=== PATIENT | male | born 1960 | race Caucasian/White ===

== ENCOUNTER 2019-07-24 18:58 | Inpatient (IN) | payer SELFPAY ==
[2019-07-24] VITALS (21 sets, daily range): BP systolic 99–116; BP diastolic 60–85; PULSE 97–134; RESP 18–33; TEMP 38.2–39.6; O2SAT 57–100; BMI 23.3
--- NOTE | 2019-07-24 19:00 | XR_ITS ---
WS: [id number] XR chest 1V portable [id number] REASON FOR EXAM: cough/congestion FINDINGS: Groundglass opacities are seen in both lower lungs most likely alveolar infiltrates. And mo st likely represent pneumonia. There is hyper aerated lungs bilaterally. The heart is not enlarged. XR/XR chest 1V portable [id number] IMPRESSION: Chronic obstructive pulmonary disease with alveolar infiltrates most likely pne umonia bilaterally.
[2019-07-24 19:27] LABS: Basophils % 0.1 %; Hematocrit 50.9 % (42.0-52.0); Hemoglobin 16.5 g/dL (11.7-16.6); Lymphocytes # 0.4 10^3/uL (0.8-4.8); Lymphocytes % 4.6 %; Mean Corpuscular HGB Conc 32.4 g/dL (30.0-36.0); Mean Corpuscular Hemoglobin 30.2 pg (28.0-34.0); Mean Corpuscular Volume 93.2 fL (80-94); Mean Platelet Volume 10.9 fL (7.4-10.4); Monocytes # 0.3 10^3/uL (0.2-0.9); Neutrophils # 7.1 10^3/uL (1.8-7.7); Neutrophils % 89.1 %; Nucleated Red Blood Cells % 0 %; Platelet Count 227 10^3/cmm (130-400); Red Blood Count 5.46 10^6/uL (4.1-5.3); Red Cell Distribution Width 14.1 % (12.1-15.1)
--- NOTE | 2019-07-24 19:36 | ED_ITS ---
Entered by Jessica Concepcion, acting as scribe for HPI - SOB/Dyspnea General: Chief Complaint: Shortness of Breath/Dyspnea Stated Complaint: sob/flu symptoms Time Seen by Provider: 07/24/19 19:36 Source: patient, family and RN notes reviewed Mode of arrival: wheelchair Limitations: no limitations History of Present Illness: HPI Narrative: 59 yo male presents to ED with shortness of breath. The patient arrived with an oxygen level of 57% on room air. Per his son, the patient is normally active. The patient is full code. The son stated that yesterday the patient was able to get up and around and have conversation. He could tell the patient was sick. The son went to check on the patient today about 1700 and found him to be listless and had a high fever (103.2 at triage). The patient's hands are purplish in color. The patient states he has R hip pain. The patient was unable to talk because of severe shortness of breath and tachypnea. Most of the history is given by his son. The patient has been ill for about a week with cough, fever, shortness of breath. He went to see his primary care provider at [facility] and was given doxycycline and prednisone. The patient has been taking the medications and initially thought he was getting better. Today he became very weak, was really short of breath and his son brought him in to be evaluated. MD elicited complaint: shortness of breath Pertinent past history: other (none known) Onset (ago): day(s) (1) Context: recent illness Timing: constant and progressively worsening Severity: severe Exacerbating factors: lying flat, exertion, movement, coughing, inspiration and talking Relieving factors: oxygen, rest and upright position Known history of: other (none known) Associated symptoms: Reports fever(s) and orthopnea; Deny abdominal pain, nausea, polydipsia, polyuria or vomiting Treatment prior to arrival: none Review of Systems General: Reports: 10 or more systems reviewed and unremarkable except in HPI and below Const: Reports: fever; Denies: body aches Eyes: Denies: change in vision or blurry vision ENMT: Denies: throat pain, enlarged tonsils, painful swallowing, hoarseness, mouth pain or swelling of lips/tongue Card: Reports: shortness of breath when lying down Resp: Reports: shortness of breath and non-productive cough GI: Denies: abdominal pain, nausea or vomiting : Denies: flank pain, painful urination, urinary frequency, urinary urgency or urinary hesitancy Musc: Denies: neck pain, back pain or extremity swelling Skin/Breast: Denies: rash, itching or redness Neuro: Denies: headache, numbness in extremities or weakness in extremities Endo: Denies: excessive urination, excessive thirst or tired all the time PFSH ED PFSH: Medical History (Updated 07/24/19 @ 22:37 by Awilda Crisostomo MD, [facility] [place]) No pertinent past medical history Surgical History (Updated 07/24/19 @ 22:02 by Gabi Long MD) No pertinent past surgical history Family History (Updated 07/24/19 @ 22:02 by Gabi Long MD) Other Hypertension Denies family history of Lung disease Social History (Updated 07/24/19 @ 22:02 by Gabi Long MD) Smoking and tobacco status: current every day smoker cigarettes Years cigarettes smoked: 40 Number of cigarettes per day: 1-5 Alcohol intake: never Substance/Drug Use: never Lives independently: Yes Housing: House Marital status: / Physical Exam Const: COMMON NORMALS: average body habitus, oriented x3, no limitations, alert and well nourished HENMT: COMMON NORMALS: normocephalic, head/scalp atraumatic and moist oral mucous membranes HEAD & SCALP: normocephalic and atraumatic Eye: COMMON NORMALS: PERRL, EOMs intact bilaterally, conjunctivae normal and no scleral icterus CONJUNCTIVA: Yes conjunctivae normal PUPIL: Yes PERRL Neck/C-Spine: COMMON NORMALS: full ROM, supple, no meningeal signs, no JVD and no carotid bruits Chest: COMMONS NORMALS: inspection of chest normal and palpation of chest normal Resp: COMMON NORMALS: no retractions EFFORT & INSPECTION: No able to speak in complete sentences, Yes tachypneic, Yes respiratory distress, Yes labored and Yes uses accessory muscles AUSCULTATION: rales, wheezes and diminished lung sounds Cardio: COMMON NORMALS: no JVD, regular rhythm, S1 normal heart sound, S2 normal heart sound, no gallops, no clicks, no murmurs, no rub and peripheral pulses 2+ throughout RATE: tachycardic RHYTHM: regular rhythm HEART SOUNDS: S1 normal and S2 normal PERIPHERAL PULSES: pulses 2+ throughout GI: COMMON NORMALS: normal to inspection, nondistended, normoactive bowel sounds, soft to palpation, non-tender, no hepatosplenomegaly, no masses and no bruits PALPATION: Yes soft and Yes no hepatosplenomegaly : COMMON NORMALS: Yes no CVA tenderness BLADDER/KIDNEY EXAM: Yes no CVA tenderness Back/Pelvis: COMMON NORMALS: no CVA tenderness Extremity: COMMON NORMALS: normal to inspection, full ROM, normal capillary refill, no calf tenderness and no pedal edema Neuro: COMMON NORMALS: oriented x3 SENSORIUM/ORIENTATION: Yes alert MENINGEAL SIGNS: Yes no meningeal signs Skin: COMMON NORMALS: no rashes or lesions noted, no wounds, skin turgor normal, no jaundice and no petechiae GENERAL SKIN EXAM: no rashes or lesions noted, turgor normal and pallor OTHER: Peripheral cyanosis in both hands Course Consultations: Consultation #1: Dr. Long, hospitalist. He kindly accepted the patient to his service. Vital Signs: Vital signs: Vital Signs Temperature 100.7 F H 07/24/19 20:44 Pulse Rate 107 H 07/24/19 22:10 Respiratory Rate 26 H 07/24/19 22:10 Blood Pressure 116/72 07/24/19 22:10 Pulse Oximetry 96 07/24/19 22:10 MDM - SOB/Dyspnea MDM Narrative: Medical decision making narrative: 59-year-old gentleman with a long history of cigarette smoking who presented to the emergency department in acute respiratory failure. He has been ill for about a week with respiratory symptoms and has been on doxycycline and prednisone with minimal improvement. When he arrived to the emergency department he saturations on room air was in the high 50s. The patient was garcia, pale and had peripheral cyanosis. The patient improved when placed on a BiPAP. Evaluation showed significant hypoxemia, reduced CO2 and increased pH secondary to tachypnea. Chest x-ray showed bilateral pneumonia. Lactic acid was elevated at 4.7. He was therefore diagnosed with sepsis, acute respiratory failure, and pneumonia. He is admitted for further evaluation and management. Medical Records: Attestation: I reviewed the patient's medical records. Lab Data: Attestation: I reviewed the patient's lab results. Labs: Lab Results 07/24/19 07/24/19 07/24/19 Range/Units 19:15 19:15 19:15 WBC 8.0 (4.0-10.0) 10^3/ uL RBC 5.46 H (4.1-5.3) 10^6/u L Hgb 16.5 (11.7-16.6) g/dL Hct 50.9 (42.0-52.0) % MCV 93.2 (80-94) fL MCH 30.2 (28.0-34.0) pg MCHC 32.4 (30.0-36.0) g/dL RDW 14.1 (12.1-15.1) % Plt Count 227 (130-400) 10^3/c mm MPV 10.9 H (7.4-10.4) fL Neut % (Auto) 89.1 % Lymph % (Auto) 4.6 % [place] % (Auto) 4.0 % Eos % (Auto) 0.0 % Baso % (Auto) 0.1 % Neut # (Auto) 7.1 (1.8-7.7) 10^3/u L Lymph # (Auto) 0.4 L (0.8-4.8) 10^3/u L [place] # (Auto) 0.3 (0.2-0.9) 10^3/u L Eos # (Auto) 0.0 (0.0-0.8) 10^3/u L Baso # (Auto) 0.0 (0.0-0.1) 10^3/u L Nucleated RBC % (a uto) 0 % Nucleated RBCs # 0.0 /100WBC Specimen Type Sample Site ABG pH (7.35-7.45) ABG pCO2 (35-45) mmHg ABG pO2 (80.0-100.0) mmH g ABG HCO3 (22-26) mmol/L ABG Base Excess (-2.0-2.0) mmol/ L Albino Test Hematocrit (42-52) % O2 Delivery Device FiO2 % Account Developer ID Sodium 135 L (136-145) mmol/L Potassium 4.7 (3.5-5.1) mmol/L Chloride 97 L (98-107) mmol/L Carbon Dioxide 19 L (22-29) mmol/L Anion Gap 23.7 H (5-19) BUN 53 H (8-23) mg/dL Creatinine 1.5 H (0.7-1.2) mg/dL GFR Calculation 47.6 L (90-130) mL/min Glucose 155 H (65-115) mg/dL Lactic Acid 4.7 H* (0.5-2.2) mmol/L Calcium 8.9 (8.5-10.5) mg/dL Total Bilirubin 1.1 (0.15-1.2) mg/dL AST 267 H (0-40) U/L ALT 128 H (0-41) U/L Alkaline Phosphata se 117 (40-130) IU/L Total Protein 6.8 (6.6-8.7) g/dL Albumin 3.0 L (3.5-5.2) g/dL Globulin 3.8 (1.3-4.6) g/dL Influenza Type A A g (Negative) POC Influenza B Ag (Negative) 07/24/19 07/24/19 Range/Units 19:48 19:58 WBC (4.0-10.0) 10^3/ uL RBC (4.1-5.3) 10^6/u L Hgb (11.7-16.6) g/dL Hct (42.0-52.0) % MCV (80-94) fL MCH (28.0-34.0) pg MCHC (30.0-36.0) g/dL RDW (12.1-15.1) % Plt Count (130-400) 10^3/c mm MPV (7.4-10.4) fL Neut % (Auto) % Lymph % (Auto) % [place] % (Auto) % Eos % (Auto) % Baso % (Auto) % Neut # (Auto) (1.8-7.7) 10^3/u L Lymph # (Auto) (0.8-4.8) 10^3/u L [place] # (Auto) (0.2-0.9) 10^3/u L Eos # (Auto) (0.0-0.8) 10^3/u L Baso # (Auto) (0.0-0.1) 10^3/u L Nucleated RBC % (a uto) % Nucleated RBCs # /100WBC Specimen Type Arterial Sample Site Radial, left ABG pH 7.53 H (7.35-7.45) ABG pCO2 27.3 L (35-45) mmHg ABG pO2 42.7 L (80.0-100.0) mmH g ABG HCO3 23.0 (22-26) mmol/L ABG Base Excess 1.8 (-2.0-2.0) mmol/ L Albino Test Pos Hematocrit 49.9 (42-52) % O2 Delivery Device Nrb FiO2 100.0 % Account Developer ID [email or web address] Sodium (136-145) mmol/L Potassium (3.5-5.1) mmol/L Chloride (98-107) mmol/L Carbon Dioxide (22-29) mmol/L Anion Gap (5-19) BUN (8-23) mg/dL Creatinine (0.7-1.2) mg/dL GFR Calculation (90-130) mL/min Glucose (65-115) mg/dL Lactic Acid (0.5-2.2) mmol/L Calcium (8.5-10.5) mg/dL Total Bilirubin (0.15-1.2) mg/dL AST (0-40) U/L ALT (0-41) U/L Alkaline Phosphata se (40-130) IU/L Total Protein (6.6-8.7) g/dL Albumin (3.5-5.2) g/dL Globulin (1.3-4.6) g/dL Influenza Type A A g Negative (Negative) POC Influenza B Ag Negative (Negative) Discharge Plan Discharge Patient Disposition: Admitted As Inpatient Admit Provider: Gabi Long Clinical Impression: Acute respiratory failure, Bilateral pneumonia, Sepsis Condition: Stable Interventions: ED Discharge Assessment Last Done: 07/24/19 21:55 Discharge Date/Time: 07/24/19 22:16 Coding Level of Care Code ED Lead Carpenter for Chg Fwd Exam Comprehensive The documentation recorded by the Carlene bustos Valerie R, accurately reflects the service I personally performed and the decisions made by Kranthi knight Adegoke I, MD, [facility] [place] [facility] Jul 24, 2019 18:58
[2019-07-24 19:51] LABS: Alanine Aminotransferase 128 U/L (0-41); Alkaline Phosphatase 117 IU/L (40-130); Anion Gap 23.7 (5-19); Aspartate Amino Transferase 267 U/L (0-40); Blood Urea Nitrogen 53 mg/dL (8-23); Calcium 8.9 mg/dL (8.5-10.5); Carbon Dioxide 19 mmol/L (22-29); Chloride 97 mmol/L (98-107); Globulin 3.8 g/dL (1.3-4.6); Glomerular Filtration Rate 47.6 mL/min (90-130); Glucose 155 mg/dL (65-115); Potassium 4.7 mmol/L (3.5-5.1); Sodium 135 mmol/L (136-145); Total Bilirubin 1.1 mg/dL (0.15-1.2); Total Protein 6.8 g/dL (6.6-8.7)
[2019-07-24 19:57] LABS: ABG PCO2 27.3 mmHg (35-45); ABG PH Result 7.53 (7.35-7.45); Arterial Blood Gas Hematocrit 49.9 % (42-52); Base Excess ABG 1.8 mmol/L (-2.0-2.0); Blood Gas Allen Test Pos; Blood Gas Sample Site Radial, left; Blood Gas Sample Type Arterial; Oxygen Device NRB; PO2 ABG 42.7 mmHg (80.0-100.0)
[2019-07-24 20:12] LABS: Slide Review Slide Review Perform
[2019-07-24] MEDS: ipratropium-albuterol 3 mL Neb INHALATION ×2 (20:13→23:36)
[2019-07-24] MEDS: sodium chloride 0.9% 2,000 ML 999 ML IV (20:32)
--- NOTE | 2019-07-24 20:33 | PC.NURSE ---
PATIENTS SON STATES THAT PATIENT HAS BEEN SICK FOR THE LAST WEEK AND THAT WHEN HE CAME TO CHECK ON HIM AT 1700 TODAY THE PATIENT WAS HAVING TROUBLE BREATHING. PATIENT STATES THAT HIS RIGHT HIP IS HURTING AND THAT HE IS SHORT OF BREATH. PATIENT WAS MOVED FROM ROOM 2 TO TRAUMA ROOM 10.
[2019-07-24 20:42] LABS: Influenza A by IFA Negative (Negative); Influenza B by IFA Negative (Negative)
[2019-07-24 20:44] LABS: Lactic Sepsis W/Reflex 4.7 mmol/L (0.5-2.2)
--- NOTE | 2019-07-24 20:46 | PC.NURSE ---
CRITICAL VALUE - LACTIC 4.7
--- NOTE | 2019-07-24 21:07 | PM.HP ---
Providers/Chief Complaint Chief Complaint: sob/flu symptoms History of Present Illness José Patel is a 59 year old male who has not seen a primary care physician in a long time without significant past medical or surgical history came in with chief complaint of shortness of breath, cough and sputum production. Patient is stating that he lives independently, he was in his usual state of health until June he started feeling weaker and sicker. He was experiencing fever with chills, yellowish sputum production with coughing which has not increased in quantity of volume from his baseline, he smokes 3 to 4 cigarettes every day, his shortness of breath was getting worse. In 3 to 4 weeks it got worse to the point he felt extremely weak and not able to take care of himself, his last proper meal was on Thursday he is extremely dehydrated. 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 He has not traveled outside [place]. He denies any chest pain, orthopnea, PND, leg swelling, endorsing change in bowel habits with urgency. He is denying weight loss, night sweats. He went to see Dr. flores [facility] who prescribed doxycycline and prednisone after ruling out flu. He did not do well on this regimen and decided to come to emergency department today because of his worsening shortness of breath and weakness Diagnostics in ER showed hypoxia on room air he was 57% on room air, ABG was obtained on nonrebreather mask which showed hypoxia he was tachycardic, febrile, tachypneic, chest x-ray showed bilateral pneumonia, flu panel was negative lactic acid was high without leukocytosis He was given 1 dose of cefepime, on arrival temperature was 103.2, after Tylenol his temperature came down to 100.7, he got fluid with normal saline Review of Systems Const: Reports: fever, chills, body aches, change in appetite, fatigue and malaise; Denies: change in weight, night sweats, diaphoresis, change in sleep pattern or daytime sleepiness Eyes: Denies: change in vision ENMT: Denies: throat pain Card: Denies: chest pain or edema Resp: Reports: shortness of breath and productive cough GI: Denies: abdominal pain or nausea : Denies: flank pain or difficulty urinating Musc: Denies: neck pain or back pain Skin/Breast: Denies: rash Neuro: Denies: headache Psych: Denies: anxiety Endo: Denies: excessive urination Jaden/Lymph: Denies: easy bruising All/Imm: Denies: hives Medications/Allergies Allergies Allergy/AdvReac Type Severity Reaction Status Date / Time No Known Allergies Allergy Verified 07/24/19 19:52 PFSH Acute PFSH: Medical History (Updated 07/24/19 @ 22:05 by Gabi Long MD) No pertinent past medical history Surgical History (Updated 07/24/19 @ 22:02 by Gabi Long MD) No pertinent past surgical history Family History (Updated 07/24/19 @ 22:02 by Gabi Long MD) Other Hypertension Denies family history of Lung disease Social History (Updated 07/24/19 @ 22:02 by Gabi Logn MD) Smoking and tobacco status: current every day smoker cigarettes Years cigarettes smoked: 40 Number of cigarettes per day: 1-5 Alcohol intake: never Substance/Drug Use: never Lives independently: Yes Housing: House Marital status: / Vitals/I&O/Wt Last Vital Signs Temp 100.7 F H 07/24/19 20:44 Pulse 117 H 07/24/19 20:39 Resp 27 H 07/24/19 20:39 BP 114/60 07/24/19 20:39 Pulse Ox 95 07/24/19 20:39 Weight last 48 hrs Weight 65.771 kg Physical Exam Narrative: EXAM NARRATIVE: Thin frail middle-aged man Malnourished appearance Unkempt appearance looks dehydrated Dry skin Digital clubbing EOMI, PERRLA Dry lips with cracks Lung auscultation reveals bronchial breathing, adventitious sounds without active wheezing adequate breath sounds currently he is on BiPAP settings 16 and 8, able to give me all the details His digits have mild cyanotic tint no cyanosis of lips S1, S2 no signs of heart failure or JVD Nonfocal exam neurologically Abdomen soft nontender nondistended bowel sounds present Lower extremities without any edema No signs of ischemia gangrene or ulcer of skin Appropriate mood and affect Data : 07/24/19 19:15 07/24/19 19:15 Micro: Microbiology 07/24/19 20:28 Blood Culture - Preliminary Blood SPECIMEN COLLECTED 07/24/19 19:15 Blood Culture - Preliminary Blood SPECIMEN COLLECTED A&P Assessment and plan (1) Bilateral pneumonia: Status: Acute Code(s): J18.9 - Pneumonia, unspecified organism (2) Hypoxia: Status: Acute Code(s): R09.02 - Hypoxemia (3) Sepsis: Status: Acute Code(s): A41.9 - Sepsis, unspecified organism (4) Community acquired pneumonia: Status: Acute Code(s): J18.9 - Pneumonia, unspecified organism (5) Malnourished: Status: Acute Code(s): E46 - Unspecified protein-calorie malnutrition Additional A&P Information Sepsis secondary to community-acquired pneumonia Failed outpatient therapy with doxycycline Pneumonia severity index class III with a score of 86, will admit to the floor Sepsis criteria met with fever, tachycardia, tachypnea and lactic acidosis I will give him normal saline fluids, ceftriaxone and azithromycin Prednisone because of bilateral pneumonia BiPAP for now Urine antigens and blood culture ordered Sputum culture Flu panel negative however his symptoms are consistent with viral illness with bilateral infiltrates on x-ray with fever cough and sputum production I would not start him on Tamiflu because his symptoms started more than 4 weeks ago Acute hypoxic respiratory failure We will get CTA chest to rule out PE Currently hemodynamically stable Malnourished Patient is denying night sweats, weight loss We will follow-up with CT chest High anion gap metabolic acidosis due to lactic acidemia I believe this is a combination of sepsis and tissue hypoxia Follow-up with lactic acid level ARNAUD secondary to dehydration Anticipating improvement with fluid resuscitation DVT prophylaxis: Heparin Patient is full code He is high risk for intubation Son name is Kobe Patel [phone], updated, all questions were answered to their satisfaction, GI prophylaxis: Protonix Attestations Medical Necessity Statement*: Anticipating stay in the hospital to cross more than 2 midnights because of bilateral pneumonia and acute hypoxic respiratory failure Time Spent in Patient Care: 60 Coding Level of Care Code Acute Batch Or Continuous Still Operator for [facility] Fwd Diagnoses Bilateral pneumonia J18.9 Hypoxia R09.02 Sepsis A41.9 Community acquired pneumonia J18.9 Malnourished E46
[2019-07-24 21:18] LABS: Reflex Lactate Order REFLEX LACTIC ORDERD
[2019-07-24] MEDS: sodium chloride 0.9% 1,000 ML 999 ML IV (21:20)
[2019-07-24] MEDS: cefepime 1,000 MG in sodium chloride 0.9% (plus) 50 ML 100 MG IV (21:20)
--- NOTE | 2019-07-24 21:51 | CTR_ITS ---
PROCEDURE INFORMATION: Exam: CT Angiography Chest With Contrast Exam date and time: 07/24/2019 10:19 PM Age: 59 years old Clinical indication: Shortness of breath; Patient HX: Worsening difficulty breathing x 1 week; Additional info: Hypoxia TECHNIQUE: Imaging protocol: Computed tomographic angiography of the chest with intravenous contrast. 3D rendering: MIP and/or 3D reconstructed images were created by the technologist. Total DLP: 514.38 mGy-cm Radiation optimization: All CT scans at this facility use at least one of these dose optimization techniques: automated exposure control; mA and/or kV adjustment per patient size (includes targeted exams where dose is matched to clinical indication); or iterative reconstruction. Contrast material: VISI 320; Contrast volume: 95 ml; Contrast route: 16G; COMPARISON: CR XR chest 1V portable [id number] 07/24/2019 7:46 PM FINDINGS: Pulmonary arteries: Rapid tapering of the small pulmonary arteries. No central or segmental pulmonary embolus. No suggestion of a subsegmental embolus. Aorta: No aortic aneurysm or dissection. Thyroid: Small ring calcification in the left lower thyroid. Lungs: Very extensive centrilobular blebs and numerous paraseptal blebs in each lung with upper lobe predominance. Extensive airspace disease around the blebs in the posterior lungs with lower lobe predominance. Consolidation in each posterior inferior lower lobe. Calcified granuloma in the left lower lobe. Pleural space: Unremarkable. No pneumothorax. No pleural effusion. Heart: No cardiomegaly. Right ventricular diameter 4.7 cm and left ventricular diameter 4.1 cm. No pericardial effusion. Lymph nodes: Enlarged azygoesophageal recess node. Multiple other nonenlarged but slightly prominent mediastinal nodes. Bilateral hilar adenopathy. Bones/joints: Old compression fractures. Degeneration of several discs. Increased kyphosis. Subchondral defects in both humeral heads. Soft tissues: Unremarkable. CT/CT angio chest PE protcl [id number] IMPRESSION: 1. No apparent pulmonary embolus. 2. Prominent emphysema. Extensive lower lung disease most suggestive of edema although early bilateral lower lobe pneumonia not excluded. 3. Findings suggestive of pulmonary arterial hypertension. 4. Mediastinal and bilateral hilar adenopathy. 5. Small ring calcification in the left thyroid. Other findings detailed above. Radiation Dose CTDIVOL = (mGy): DLP = 514.38 (mGy-cm)
[2019-07-24] MEDS: iodixanol 320 mg/mL 100mL Btl IV (22:27)
[2019-07-24] MEDS: heparin 5,000 unit/mL INJ 1 mL 5000 UNIT SUBCUT (22:57)
[2019-07-24] MEDS: sodium chloride 0.9% 1,000 ML 75 ML IV (22:57)
[2019-07-24] MEDS: cefTRIAXone 1,000 MG in sodium chloride 0.9% (plus) 50 ML 100 MG IV (22:57)
[2019-07-24 23:53] LABS: Lactic Acid level (Lactate) 1.8 mmol/L (0.5-2.2)
[2019-07-25] VITALS (30 sets, daily range): BP systolic 96–180; BP diastolic 56–93; PULSE 62–106; RESP 14–32; TEMP 36.6–39.2; O2SAT 87–100
[2019-07-25] MEDS: ipratropium-albuterol 3 mL Neb INHALATION ×5 (03:57→20:09)
[2019-07-25 05:02] LABS: Hematocrit 40.5 % (42.0-52.0); Hemoglobin 13.3 g/dL (11.7-16.6); Lymphocytes # 0.5 10^3/uL (0.8-4.8); Lymphocytes % 7.2 %; Mean Corpuscular HGB Conc 32.8 g/dL (30.0-36.0); Mean Corpuscular Hemoglobin 31.1 pg (28.0-34.0); Mean Corpuscular Volume 94.6 fL (80-94); Mean Platelet Volume 10.6 fL (7.4-10.4); Monocytes # 0.1 10^3/uL (0.2-0.9); Neutrophils # 5.8 10^3/uL (1.8-7.7); Neutrophils % 87.8 %; Nucleated Red Blood Cells % 0 %; Platelet Count 191 10^3/cmm (130-400); Red Blood Count 4.28 10^6/uL (4.1-5.3); Red Cell Distribution Width 14.1 % (12.1-15.1); White Blood Count 6.6 10^3/uL (4.0-10.0)
[2019-07-25 05:19] LABS: Anion Gap 16.7 (5-19); Blood Urea Nitrogen 35 mg/dL (8-23); Calcium 7.5 mg/dL (8.5-10.5); Carbon Dioxide 20 mmol/L (22-29); Chloride 109 mmol/L (98-107); Glucose 160 mg/dL (65-115); Lactic Acid level (Lactate) 1.4 mmol/L (0.5-2.2); Osmolality Calculated 293 mOsm/kg (285-295); Potassium 4.7 mmol/L (3.5-5.1); Sodium 141 mmol/L (136-145)
[2019-07-25 05:37] LABS: ABG PCO2 30.8 mmHg (35-45); ABG PH Result 7.46 (7.35-7.45); Arterial Blood Gas Hematocrit 47.5 % (42-52); Base Excess ABG -0.8 mmol/L (-2.0-2.0); Blood Gas Allen Test Pos; Blood Gas Sample Type Arterial; PO2 ABG 59.1 mmHg (80.0-100.0)
[2019-07-25 05:38] LABS: Blood Gas Sample Site Radial, left; Oxygen Device BIPAP
[2019-07-25] MEDS: heparin 5,000 unit/mL INJ 1 mL 5000 UNIT SUBCUT ×3 (06:26→22:23)
[2019-07-25 06:31] LABS: Slide Review Slide Review Perform
[2019-07-25] MEDS: predniSONE 20 mg Tablet 40 MG PO (08:41)
[2019-07-25] MEDS: azithromycin 250 mg Tablet 500 MG PO (08:41)
[2019-07-25 10:25] LABS: HIV 1 & 2 Antibody Non-Reactive (Non-Reactiv); HIV 1 & 2 Antigen Non-Reactive (Non-Reactiv)
--- NOTE | 2019-07-25 11:19 | PC.RESP ---
Patient given information on Smoking Cessation.
[2019-07-25] MEDS: sodium chloride 0.9% 1,000 ML 75 ML IV (12:22)
--- NOTE | 2019-07-25 17:22 | PM.PN ---
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, was exposed to dust, since then he has been having cough productive yellow sputum with blood, fevers, chills, shortness of breath, fatigue, weakness, patient continues to smoke, smokes for over 50 years, does not use any nebulizers at home, has not seen a physician in a long time Vitals/I&O/Wt Last Vital Signs Temp 97.8 F 07/25/19 15:14 Pulse 79 07/25/19 15:59 Resp 16 07/25/19 15:58 BP 108/68 07/25/19 15:14 Pulse Ox 91 07/25/19 15:59 07/25/19 07/25/19 07/25/19 06:59 14:59 22:59 Intake Total 200 / 250 1720 / 1720 Output Total 450 / 450 Balance -250 / -200 1720 / 1720 Weight last 48 hrs Weight 61.49 kg Weight 65.771 kg Physical Exam Const: COMMON NORMALS: no apparent distress and oriented x3 HENMT: COMMON NORMALS: normocephalic HEAD & SCALP: normocephalic Neck/C-Spine: COMMON NORMALS: no JVD Resp: COMMON NORMALS: normal respiratory effort and no retractions EFFORT & INSPECTION: Yes able to speak in complete sentences AUSCULTATION: rhonchi and wheezes Cardio: COMMON NORMALS: no JVD, regular rate, regular rhythm, S1 normal heart sound and S2 normal heart sound RATE: regular rate RHYTHM: regular rhythm HEART SOUNDS: S1 normal and S2 normal GI: COMMON NORMALS: normal to inspection, nondistended, normoactive bowel sounds, soft to palpation, non-tender, no hepatosplenomegaly, no masses and no bruits PALPATION: Yes soft and Yes no hepatosplenomegaly Extremity: COMMON NORMALS: normal capillary refill, no clubbing, cyanosis or edema, no calf tenderness and no pedal edema Neuro: COMMON NORMALS: oriented x3 Psych: COMMON NORMALS: mental status grossly normal Data : 07/25/19 04:42 07/25/19 04:42 Micro: Microbiology 07/25/19 09:15 MRSA Culture - Final Nose 07/25/19 09:30 Legionella Urinary Antigen - Final Urine,Voided Bacterial Antigens - Final 07/24/19 20:28 Blood Culture - Preliminary Blood SPECIMEN COLLECTED 07/24/19 19:15 Blood Culture - Preliminary Blood SPECIMEN COLLECTED A&P Assessment and plan (1) Bilateral pneumonia: Status: Acute Code(s): J18.9 - Pneumonia, unspecified organism (2) Hypoxia: Status: Acute Code(s): R09.02 - Hypoxemia (3) Sepsis: Status: Acute Qualifiers: Acute respiratory failure type: with hypoxia Sepsis acute organ dysfunction status: with acute organ dysfunction Sepsis type: sepsis due to unspecified organism Severe sepsis acute organ dysfunction type: acute respiratory failure Severe sepsis shock status: without septic shock Qualified Code(s): A41.9 - Sepsis, unspecified organism; R65.20 - Severe sepsis without septic shock; J96.01 - Acute respiratory failure with hypoxia Code(s): A41.9 - Sepsis, unspecified organism (4) Community acquired pneumonia: Status: Acute Code(s): J18.9 - Pneumonia, unspecified organism (5) Malnourished: Status: Acute Code(s): E46 - Unspecified protein-calorie malnutrition Additional A&P Information Acute respiratory failure and sepsis secondary to community-acquired pneumonia and COPD exacerbation Failed outpatient therapy with doxycycline Sepsis criteria met with fever, tachycardia, tachypnea and lactic acidosis Continue normal saline, monitor vitals closely As patient has sepsis, CT angios shows bilateral lobe pneumonia and patchy airspace disease is quite significant, will switch antibiotics to vancomycin and Zosyn for broad-spectrum coverage, follow-up sputum cultures, blood cultures High-dose steroids BiPAP for now Peak patient has some features of acute respiratory distress syndrome, minimize FiO2, continue steroids, continue antibiotics, monitor clinical status closely Urine antigens and blood culture ordered Sputum culture Flu panel negative Viral panel, Acute hypoxic respiratory failure Secondary to COPD and [facility] pneumonia Currently hemodynamically stable Malnourished High anion gap metabolic acidosis due to lactic acidemia I believe this is a combination of sepsis ARNAUD secondary to dehydration Continue fluids DVT prophylaxis: Heparin Patient is full code He is high risk for intubation, currently tolerating BiPAP well Son name is Kobe Patel [phone], updated, all questions were answered to their satisfaction, GI prophylaxis: Protonix Attestations Medical Necessity Statement*: She requires continued hospitalization due to acute respiratory failure secondary pneumonia and COPD and sepsis Coding Level of Care Code Acute Clinical Material Handler for [facility] Fwd Diagnoses Bilateral pneumonia J18.9 Hypoxia R09.02 Sepsis A41.9; R65.20; J96.01 Acute respiratory failure type: with hypoxia Sepsis acute organ dysfunction status: with acute organ dysfunction Sepsis type: sepsis due to unspecified organism Severe sepsis acute organ dysfunction type: acute respiratory failure Severe sepsis shock status: without septic shock Community acquired pneumonia J18.9 Malnourished E46
[2019-07-25 18:21] LABS: Estmated Average Glucose 131; Hemoglobin A1C 6.2 % (4.0-6.0)
[2019-07-25 18:32] LABS: Procalcitonin 22.57 ng/mL (0-0.5)
[2019-07-25] MEDS: piperacillin-tazobactam 3.375 GM in sodium chloride 0.9% (plus) 50 ML IV (19:02)
[2019-07-25] MEDS: vancomycin 1,000 MG in sodium chloride 0.9% 250 ML 250 MG IV (19:23)
[2019-07-26] VITALS (93 sets, daily range): BP systolic 103–150; BP diastolic 61–89; PULSE 70–118; RESP 12–36; TEMP 36.7–37.2; O2SAT 80–92
[2019-07-26] MEDS: ipratropium-albuterol 3 mL Neb INHALATION ×7 (00:02→23:21)
[2019-07-26] MEDS: piperacillin-tazobactam 3.375 GM in sodium chloride 0.9% (plus) 50 ML IV ×3 (01:51→18:29)
[2019-07-26] MEDS: sodium chloride 0.9% 1,000 ML 75 ML IV (01:56)
[2019-07-26 04:50] LABS: Hematocrit 39.6 % (42.0-52.0); Lymphocytes # 0.7 10^3/uL (0.8-4.8); Lymphocytes % 10.6 %; Mean Corpuscular HGB Conc 32.8 g/dL (30.0-36.0); Mean Corpuscular Hemoglobin 30.4 pg (28.0-34.0); Mean Corpuscular Volume 92.5 fL (80-94); Mean Platelet Volume 10.7 fL (7.4-10.4); Monocytes # 0.2 10^3/uL (0.2-0.9); Monocytes % 3.5 %; Neutrophils # 5.4 10^3/uL (1.8-7.7); Neutrophils % 83.4 %; Nucleated Red Blood Cells % 0 %; Platelet Count 200 10^3/cmm (130-400); Red Blood Count 4.28 10^6/uL (4.1-5.3); Red Cell Distribution Width 14.6 % (12.1-15.1); White Blood Count 6.5 10^3/uL (4.0-10.0)
[2019-07-26] MEDS: heparin 5,000 unit/mL INJ 1 mL 5000 UNIT SUBCUT ×2 (05:10→13:17)
[2019-07-26 05:23] LABS: Procalcitonin 18.38 ng/mL (0-0.5)
[2019-07-26 05:28] LABS: ABG PCO2 28.7 mmHg (35-45); ABG PH Result 7.48 (7.35-7.45); Arterial Blood Gas Hematocrit 39.8 % (42-52); Blood Gas Allen Test Pos; Blood Gas Sample Site Radial, left; Blood Gas Sample Type Arterial; HCO3 ABG 21.5 mmol/L (22-26); Oxygen Device NC; PO2 ABG 51.5 mmHg (80.0-100.0)
[2019-07-26 05:37] LABS: Alanine Aminotransferase 128 U/L (0-41); Albumin Level 2.5 g/dL (3.5-5.2); Alkaline Phosphatase 122 IU/L (40-130); Anion Gap 18.2 (5-19); Aspartate Amino Transferase 201 U/L (0-40); Blood Urea Nitrogen 28 mg/dL (8-23); C Reactive Protein 76.2 mg/L (0.0-4.9); Calcium 8.1 mg/dL (8.5-10.5); Carbon Dioxide 19 mmol/L (22-29); Chloride 110 mmol/L (98-107); Globulin 2.6 g/dL (1.3-4.6); Glomerular Filtration Rate 85.8 mL/min (90-130); Glucose 170 mg/dL (65-115); Magnesium 2.7 mg/dL (1.7-2.3); Phosphorus 2.1 mg/dL (2.5-4.5); Potassium 4.2 mmol/L (3.5-5.1); Sodium 143 mmol/L (136-145); Total Bilirubin 0.6 mg/dL (0.15-1.2); Total Protein 5.1 g/dL (6.6-8.7)
[2019-07-26 05:40] LABS: Slide Review Slide Review Perform
--- NOTE | 2019-07-26 07:00 | XR_ITS ---
WS: [id number] XR chest 1V portable [id number] REASON FOR EXAM: sob FINDINGS: Diffuse alveolar infiltrates are seen these are increased since previous exam. We continue suspect these represent pneumonia. The heart is not enlarged. There is chronic obstructive pulmonary disease findings. XR/XR chest 1V portable [id number] IMPRESSION: Increasing groundglass configuration and infiltrates in both lung genao. Chronic obstructive pulmonary disease.
[2019-07-26] MEDS: vancomycin 1,000 MG in sodium chloride 0.9% 250 ML 166 MG IV (08:50)
--- NOTE | 2019-07-26 09:04 | US_ITS ---
WS: [id number] THYROID ULTRASOUND REASON FOR EXAM: thyroid calcification TECHNIQUE: Grayscale and Doppler ultrasound examination of the thyroid gland. FINDINGS: RIGHT: Right thyroid gland measures 4.9 cm x 1.2 cm x 1.6 cm. Right thyroid volume equals 5.0 ccm3. Normal e chotexture throughout the right lobe is seen. LEFT: Left thyroid gland measures 4.5 cm x 1.5 cm x 2.0 cm. Left thyroid volume equals 7.0 ccm3. In the lef t lobe lower aspects is a calcified density with shadowing effect consistent with macrocalcification. There is no other evidence suspicious of papillary carcinoma but with with the calcification we rosi mmend follow-up since 6 months be made. Thyroid isthmus: 0.4 mm. US/US thyroid [id number] IMPRESSION: Calcified density with shadowing artifact in the inferior pole of the left lobe of the thyroid no other suspicious changes. We recommend rescanning the patien t in 6 months.
[2019-07-26 09:22] LABS: NT Pro B Type Natriuretic Pept 1337 pg/mL (0-125)
--- NOTE | 2019-07-26 09:42 | PC.NURSE ---
recd from 2 south per bed on 100% nrb mask. r.t. in switched to bipap. 10% fio2 at this time.
[2019-07-26] MEDS: FUROsemide 10 mg/mL SDV 4mL 40 MG IVP (10:50)
[2019-07-26] MEDS: LORazepam 2 mg/mL INJ 1 mL 1 MG IVP (13:16)
--- NOTE | 2019-07-26 14:30 | PM.PN ---
Subjective Subjective: Interval history: This morning patient was having episodes of desaturations, increased work of breathing, intercostal retractions, nasal flaring, episodes of shortness of breath, some cough, no wheezing, no fevers, tachypnea episodes, answering all questions appropriately Patient was moved down to the ICU due to concerns of acute respiratory distress syndrome, currently in the ICU he is tolerating BiPAP well, family is at bedside, I discussed with the patient that he has bilateral pneumonia with concerns for acute respiratory distress syndrome, with episodes of desaturation of his oxygen saturations in the low 80s, but currently doing well on BiPAP, FiO2 90%, saturations in the high 90s, his oxygen requirements for the next 2 days will be high, and he is a high risk of intubation, patient voiced understanding, all questions answered, agreed for elective intubation if required. He remains a full code. Patient's BNP was found to be 1500, echocardiogram shows grade 1 out of 4 diastolic dysfunction, will see how patient tolerates a dose of Lasix. Vitals/I&O/Wt Last Vital Signs Temp 98.2 F 07/26/19 08:00 Pulse 93 07/26/19 13:10 Resp 23 H 07/26/19 13:10 BP 122/77 07/26/19 13:10 Pulse Ox 90 07/26/19 13:10 07/25/19 07/26/19 07/26/19 22:59 06:59 14:59 Intake Total 510 / 2230 1050 / 3280 790 / 790 Output Total 600 / 600 400 / 1000 1110 / 1110 Balance -90 / 1630 650 / 2280 -320 / -320 Weight last 48 hrs Weight 61.49 kg Weight 65.771 kg Physical Exam Const: COMMON NORMALS: oriented x3 GENERAL APPEARANCE: cooperative, in distress and ill appearing NUTRITIONAL APPEARANCE: thin HENMT: COMMON NORMALS: normocephalic HEAD & SCALP: normocephalic Neck/C-Spine: COMMON NORMALS: no lymphadenopathy and no JVD Chest: COMMONS NORMALS: inspection of chest normal Resp: COMMON NORMALS: normal respiratory effort EFFORT & INSPECTION: Yes able to speak in complete sentences, Yes tachypneic, Yes respiratory distress, Yes actively coughing and Yes retractions AUSCULTATION: wheezes Cardio: COMMON NORMALS: no JVD, regular rate, regular rhythm, S1 normal heart sound and S2 normal heart sound RATE: regular rate RHYTHM: regular rhythm HEART SOUNDS: S1 normal and S2 normal GI: COMMON NORMALS: normal to inspection, nondistended, normoactive bowel sounds, soft to palpation, non-tender, no hepatosplenomegaly, no masses and no bruits PALPATION: Yes soft and Yes no hepatosplenomegaly : COMMON NORMALS: Yes no CVA tenderness BLADDER/KIDNEY EXAM: Yes no CVA tenderness Back/Pelvis: COMMON NORMALS: no CVA tenderness Extremity: COMMON NORMALS: normal capillary refill, no clubbing, cyanosis or edema, no calf tenderness and no pedal edema Neuro: COMMON NORMALS: oriented x3 Psych: COMMON NORMALS: mental status grossly normal Data : 07/26/19 04:30 07/26/19 04:30 Micro: Microbiology 07/24/19 20:28 Blood Culture - Preliminary Blood NEGATIVE TO DATE 07/24/19 19:15 Blood Culture - Preliminary Blood NEGATIVE TO DATE 07/25/19 09:15 MRSA Culture - Final Nose 07/25/19 09:30 Legionella Urinary Antigen - Final Urine,Voided Bacterial Antigens - Final A&P Assessment and plan (1) ARDS (adult respiratory distress syndrome): -Acute respiratory distress syndrome secondary to bilateral lobe pneumonia - patient's PaO2/FiO2 ratio is only 60 on high flow, which is concerning -ABG this morning on 75% showed a pH of 7.48, PO2 of 51.5, PCO2 of 28.7 -CT scan showed bilateral infiltrates -White blood cell count 6.5, procalcitonin 18.38 -Urine bacterial antigens negative -Blood culture so far have been unremarkable -Flu negative -Viral panel pending -Sputum culture pending Plan; -ARDS protocol -Minimize tidal volumes, minimize FiO2 -Continue BiPAP -Protonix, heparin -Patient is on broad-spectrum antibiotics vancomycin and Zosyn -On Solu-Medrol 40 every 8 hours -Patient's BNP was 1500, chest x-ray shows some pulmonary vascular congestion, echocardiogram showed diastolic CHF, will give a dose of Lasix 40 mg monitor urine output -Patient's condition is critical, he is okay with elective intubation if required Status: Acute Code(s): J80 - Acute respiratory distress syndrome (2) Diastolic CHF: Status: Acute Code(s): I50.30 - Unspecified diastolic (congestive) heart failure (3) Bilateral pneumonia: Status: Acute Qualifiers: Lung location: lower lobe of lung Pneumonia type: due to unspecified organism Qualified Code(s): J18.9 - Pneumonia, unspecified organism Code(s): J18.9 - Pneumonia, unspecified organism (4) Sepsis: Status: Acute Qualifiers: Acute respiratory failure type: with hypoxia Sepsis acute organ dysfunction status: with acute organ dysfunction Sepsis type: sepsis due to unspecified organism Severe sepsis acute organ dysfunction type: acute respiratory failure Severe sepsis shock status: without septic shock Qualified Code(s): A41.9 - Sepsis, unspecified organism; R65.20 - Severe sepsis without septic shock; J96.01 - Acute respiratory failure with hypoxia Code(s): A41.9 - Sepsis, unspecified organism (5) COPD (chronic obstructive pulmonary disease): Status: Acute Code(s): J44.9 - Chronic obstructive pulmonary disease, unspecified Attestations Medical Necessity Statement*: Patient requires hospitalization for acute respiratory distress syndrome Coding Level of Care Code Acute Intertype Operator for [facility] Diagnoses ARDS (adult respiratory distress syndrome) J80 Diastolic CHF I50.30 Bilateral pneumonia J18.9 Lung location: lower lobe of lung Pneumonia type: due to unspecified organism Sepsis A41.9; R65.20; J96.01 Acute respiratory failure type: with hypoxia Sepsis acute organ dysfunction status: with acute organ dysfunction Sepsis type: sepsis due to unspecified organism Severe sepsis acute organ dysfunction type: acute respiratory failure Severe sepsis shock status: without septic shock COPD (chronic obstructive pulmonary disease) J44.9
--- NOTE | 2019-07-26 14:37 | PC.CHAP ---
Pastoral Care Encounter/Spiritual Assessment Type of Contact [] Declined air battle manager visit [] Patient/Family/Request visit [] Outpatient visit [] Follow-up visit [] Physician referral [] Code/Alert [x] Routine visit [] Staff referral [] Actively dying [] Patient sleeping [] Family support [] [] Out of room [] Palliative care [] [] Receiving care in room [] Pre-surgical visit [] Trauma [] Long length of stay [x] ICU visit [] Other: Relational/Emotional Strength [x] Patient feels connected with others/family/visitors/staff [] Distress [] Loneliness/isolation [] Abandonment Spirituality of Patient [x] Person of Britta [] Attends Gnosticism of their Britta [] Believes in Prayer [] Reads Bible or Spiritism materials [] There are Spiritual issues to be addressed Acid Conditioning Worker Interventions [x] Prayer [x] Active listening [x] Non-anxious presence [x] Spiritual/emotional support [] Crisis/trauma care [] Spiritual counseling [] Bereavement support [] Provided bereavement packet [] Provided Bible/devotional materials [] Provided toy/stuffed animal, coloring book to patient or family member [] Provided Communion [] Anointing/[place] [] Salvation [] Completed spiritual assessment [] Other: Impact on Illness or Injury [] Angry [x] Fearful [] Anxious [] Often cries [] Exhaustion [] Unable to work [] Unable to attend christianity [] Unable to walk/stand [] Unable to read [] Unable to drive [] Unable to eat/drink [] Unable to sleep [] Unable to be with family [] Patient intubated [] Other: Summary 3 Time spent with patient
--- NOTE | 2019-07-26 17:31 | USCV_ITS ---
José Patel Age: 59 Gender: M : 1960 Exam Date: 07/26/2019 06:12 Ordering Phys: Marcel Murrieta MD Technologist: Peterson Baez [place] [facility] [place]: [place]B BP: 124 / 73 HR: 75 Rhythm: Sinus Technical Quality: Fair MEASUREMENTS (Male / Female) Normal Values 2D ECHO LV Diastolic Diameter PLAX 3.5 cm 4.2 - 5.9 / 3.9 - 5.3 cm LV Systolic Diameter PLAX 2.4 cm IVS Diastolic Thickness 0.9 cm 0.6 - 1.0 / 0.6 - 0.9 cm IVS Systolic Thickness 1.3 cm LVPW Diastolic Thickness 1.1 cm 0.6 - 1.0 / 0.6 - 0.9 cm LVPW Systolic Thickness 1.1 cm LVOT Diameter 2.1 cm LV Ejection Fraction 2D Teich 61.2 % LV Ejection Fraction MOD 2C 42.9 % LV Ejection Fraction 2C AL 42.3 % LA Diameter 4.0 cm LA Width 3.7 cm LA Height 4.7 cm RA Width 3.2 cm RA Height 4.2 cm Aorta at Sinotubular Diameter 2.7 cm M-MODE LV Diastolic Diameter MM 4.2 cm 4.2 - 5.9 / 3.9 - 5.3 cm LV Systolic Diameter MM 3.0 cm LV Ejection Fraction MM Teich 55.1 % IVS Diastolic Thickness MM 0.9 cm 0.6 - 1.0 / 0.6 - 0.9 cm IVS Systolic Thickness MM 1.2 cm LVPW Diastolic Thickness MM 1.1 cm 0.6 - 1.0 / 0.6 - 0.9 cm LVPW Systolic Thickness MM 1.5 cm RV Diastolic Diameter MM 1.6 cm Aortic Annulus Diameter 3.2 cm LA Ao Ratio MM 1.3 MV E Point Septal Separation 0.7 cm DOPPLER AV Peak Velocity 100.0 cm/s LVOT Peak Velocity 93.0 cm/s AV Area Cont Eq vti 3.4 cm squared AV Area Cont Eq pk 3.3 cm squared MV Area PHT 5.0 cm squared Mitral E to A Ratio 1.4 MV E' Velocity 13.0 cm/s Mitral E to MV E' Ratio 6.7 Mitral E to LV E' Lateral Ratio 7.3 Mitral E to LV E' Septal Ratio 6.2 TR Peak Velocity 129.0 cm/s TR Peak Gradient 6.6 mmHg TV Peak E Velocity 105.0 cm/s Right Atrial Pressure 3.0 mmHg Pulmonary Artery Systolic Pressu 9.7 mmHg FINDINGS Left Ventricle Normal left ventricular size, systolic function and wall thickness, with no regional wall motion abnormalities. Grade I/IV diastolic dysfunction (abnormal relaxation filling pattern), normal to mildly elevated filling pressures. Left ventricular ejection fraction is estimated at 60 %. Right Ventricle Normal right ventricular size and systolic function. Normal right ventricular systolic pressure. Right Atrium The right atrium is normal in size. Left Atrium Mildly increased left atrial size. Mitral Valve Structurally normal mitral valve. No mitral valve regurgitation. Aortic Valve Structurally normal aortic valve without significant sclerosis or stenosis. There is no aortic regurgitation. Tricuspid Valve Structurally normal tricuspid valve. Trace tricuspid valve regurgitation. Pulmonic Valve Pulmonic valve not well visualized. Pericardium Normal pericardium without effusion. Aorta Normal ascending aorta dimension. CONCLUSIONS Normal left ventricular size, systolic function and wall thickness, with no regional wall motion abnormalities. Grade I/IV diastolic dysfunction (abnormal relaxation filling pattern), normal to mildly elevated filling pressures. Left ventricular ejection fraction is estimated at 60 %. Mildly increased left atrial size. Dr. Augustine Wan MD (Electronically Signed) Final Date: 26 July 2019 09:28 S
[2019-07-26] MEDS: pantoprazole 40 mg SDV IVP (18:29)
--- NOTE | 2019-07-26 18:57 | P.CONIM_ITS ---
Providers/Reason For Consult Consulting Physican/Specialty*: Pulmonary critical care medicine Reason for Consult*: Acute hypoxic respiratory failure in the setting of bilateral lower lobe pneumonia Attending Physician: Marcel Murrieta MD History of Present Illness History of Present Illness José Patel is a 59 year old male who presented to the hospital on July 23 after failing outpatient doxycycline for diagnosis of COPD exacerbation. Patient has an extensive history of smoking and is a everyday smoker currently. The patient was found to be septic with elevated lactic acid and creatinine on admission. He was treated with volume resuscitation with subsequent improvement of his lactic acidosis and kidney function. The patient was initially managed with ceftriaxone and azithromycin and steroid. He was put on noninvasive positive pressure ventilation for acute hypoxic respiratory failure. Antibiotic was later broadened to Zosyn and vancomycin. The patient however had progressively worsening hypoxemia and was brought to ICU for further management. I have seen and examined the patient in the ICU. The patient appears to be comfortable while resting. He was on BiPAP with a tidal volume well over a liter with every breath. He gives a history of fever, sputum production, shortness of breath which had gotten worse over the few days before presenting to the hospital. I had performed a bedside ultrasound which revealed bilateral B-lines in the lower lobes, good ejection fraction, mildly dilated IVC and hepat ic veins. There is no pleural effusion. The CT angiogram on admission did not reveal any pulmonary embolism however there was significant bilateral centrilobular and paraseptal emphysema. There is infiltrate in the right lower lobe predominantly, minimal infiltrate in the right middle lobe. There is also infiltrate in the left lower lobe and in the lingular segment of the left upper lobe. The patient's past medical history is limited as the patient does not follow-up with any physician. Review of Systems Narrative: The review of system is limited because of the clinical condition of the patient. The patient has a facemask for BiPAP. Meds/Allergies Home Medications and Allergies Home Medications Medication Instructions Recorded Confirmed Type No Known Home Medications 07/24/19 07/24/19 History Allergies Allergy/AdvReac Type Severity Reaction Status Date / Time No Known Allergies Allergy Verified 07/24/19 19:52 Current Medications Current Medications Generic Name Dose Route Start Last Admin Trade Name Freq PRN Reason Stop Dose Admin Albuterol/Ipratropium 3 ml 07/25/19 00:00 07/26/19 15:04 Duoneb INHALATION 3 ml Q4H.RESPIRATORY FREDDY Administration Piperacillin Sod/Tazobactam 50 mls @ 12.5 mls/hr 07/25/19 18:30 07/26/19 18:29 Sod 3.375 gm/ Sodium Chloride IV 12.5 mls/hr Q8H FREDDY Administration PFSH Acute PFSH: Medical History No pertinent past medical history Surgical History No pertinent past surgical history Family History Other Hypertension Denies family history of Lung disease Social History Smoking and tobacco status: current every day smoker cigarettes Years cigarettes smoked: 40 Number of cigarettes per day: 1-5 Alcohol intake: never Substance/Drug Use: never Lives independently: Yes Housing: House Marital status: / Vitals/I&O/Wt Last Vital Signs Temp 98.2 F 07/26/19 08:00 Pulse 109 H 07/26/19 17:24 Resp 24 H 07/26/19 17:24 BP 127/66 07/26/19 16:00 Pulse Ox 86 L 07/26/19 17:24 07/26/19 07/26/19 07/26/19 06:59 14:59 22:59 Intake Total 1050 / 3280 840 / 840 Output Total 400 / 1000 1110 / 1110 Balance 650 / 2280 -270 / -270 Weight last 48 hrs Weight 135 lb 9 oz Weight 145 lb Physical Exam Narrative: EXAM NARRATIVE: General: Patient is awake alert and oriented, in no significant distress while resting. Neck: No JVD, no cervical or supraclavicular lymphadenopathy. Respiratory: Inspection: Barrel-shaped chest Palpation: Trachea is mildly deviated to the right, reduced expansion bilaterally Percussion: Bilateral tympanic percussion note both anterior and posteriorly Auscultation: Reduced breath sound bilaterally, no wheezing or rhonchi, occasional crackles at the bases Cardiovascular: Regular rate and rhythm, S1-S2 present, no murmur, no right ventricular heave, no peripheral edema. Abdomen: Soft, nontender, nondistended, positive bowel sound. No palpable organomegaly. Musculoskeletal: No obvious joint deformity Skin: No rash, no evidence of erythema nodosum or multiforme. Neuro: Mental status is normal, no gross cranial nerve deficit, normal motor and coordination. Data Micro: Micro: Microbiology 07/26/19 02:10 MRSA Culture - Fin al Nose 07/24/19 20:28 Blood Culture - Pr eliminary Blood NEGATIVE TO GYPSY E 07/24/19 19:15 Blood Culture - Pr eliminary Blood NEGATIVE TO GYPSY E 07/25/19 09:15 MRSA Culture - Fin al Nose Other Data: Other data: I have read reviewed the patient's laboratory, microbiologic and radiologic data. Blood culture and sputum cultures are negative so far. The nasal MRSA PCR is negative. The creatinine has gotten better. A&P Assessment and plan (1) Multilobar lung infiltrate: The patient has acute hypoxic respiratory failure in the setting of multilobar pneumonia. The patient also has significant centrilobular and paraseptal emphysema. Given the significant shunting from the multilobar pneumonia the hypoxia is not unexpected. The patient is currently broadly covered with vancomycin, Zosyn. I am going to switch the vancomycin to linezolid and we do not have to check the vancomycin level. Also the combination of vancomycin is dosing associated with more acute kidney injury. I am also going to add azithromycin for atypical microbial coverage as well as for anti-inflammatory property. I am going to discontinue the IV steroid therapy. I expect the patient to progress very slowly. Status: Acute Code(s): R91.8 - Other nonspecific abnormal finding of lung field (2) Acute respiratory failure: The patient is currently on high flow nasal cannula. The oxygen saturation goal is 88 and above however if the patient is comfortable and saturating between 84 to 88% it is acceptable. As long as he does not have any coronary ischemia, cardiac arrhythmia or change in mental status and oxygen saturation level of 84% is acceptable for him. He has profound centrilobular and paraseptal emphysema which would result in significant VQ mismatch and the new bilateral pneumonia with shunting of the blood flow will certainly result in significant hypoxia. We will titrate the FiO2 down as he gets better. We will continue with a flow rate of 40% for the time being. Status: Acute Qualifiers: Respiratory failure complication: hypoxia Qualified Code(s): J96.01 - Acute respiratory failure with hypoxia Code(s): J96.00 - Acute respiratory failure, unspecified whether with hypoxia or hypercapnia (3) COPD (chronic obstructive pulmonary disease): Continue with DuoNeb and Pulmicort nebulization for the time being. The patient needs counseling for smoking cessation and I will be happy to follow-up with him as outpatient. Thank you for the consultation I will continue to follow the patient. 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 [employer] Diagnoses Multilobar lung infiltrate R91.8 Acute respiratory failure J96.01 Respiratory failure complication: hypoxia COPD (chronic obstructive pulmonary disease) J44.9
[2019-07-26] MEDS: azithromycin 500 MG in sodium chloride 0.9% 250 ML 250 MG IV (19:42)
[2019-07-26] MEDS: FUROsemide 10 mg/mL SDV 2mL 20 MG IVP (19:42)
[2019-07-26] MEDS: enoxaparin 40 mg/0.4 mL Syringe SUBCUT (19:42)
[2019-07-26] MEDS: linezolid premix 600 MG/300 ML PREMIX 300 MG IV (19:43)
[2019-07-26] MEDS: budesonide 0.5 mg/2 mL Neb INHALATION (19:53)
[2019-07-27] VITALS (32 sets, daily range): BP systolic 111–139; BP diastolic 60–80; PULSE 73–98; RESP 14–30; TEMP 37–37.2; O2SAT 63–93
[2019-07-27] MEDS: piperacillin-tazobactam 3.375 GM in sodium chloride 0.9% (plus) 50 ML IV ×3 (01:48→17:29)
[2019-07-27] MEDS: ipratropium-albuterol 3 mL Neb INHALATION ×5 (03:36→20:21)
[2019-07-27 04:51] LABS: ABG PCO2 26.8 mmHg (35-45); ABG PH Result 7.56 (7.35-7.45); Arterial Blood Gas Hematocrit 39.8 % (42-52); Base Excess ABG 2.6 mmol/L (-2.0-2.0); Blood Gas Sample Site Brachial, right; Blood Gas Sample Type Arterial; HCO3 ABG 23.8 mmol/L (22-26); PO2 ABG 44.7 mmHg (80.0-100.0)
[2019-07-27 05:10] LABS: Hematocrit 38.5 % (42.0-52.0); Hemoglobin 12.4 g/dL (11.7-16.6); Lymphocytes # 0.6 10^3/uL (0.8-4.8); Lymphocytes % 8.6 %; Mean Corpuscular HGB Conc 32.2 g/dL (30.0-36.0); Mean Corpuscular Hemoglobin 30.9 pg (28.0-34.0); Mean Platelet Volume 10.2 fL (7.4-10.4); Monocytes # 0.4 10^3/uL (0.2-0.9); Monocytes % 6.4 %; Neutrophils # 5.4 10^3/uL (1.8-7.7); Nucleated Red Blood Cells % 0.3 %; Platelet Count 196 10^3/cmm (130-400); Red Blood Count 4.01 10^6/uL (4.1-5.3); Red Cell Distribution Width 14.2 % (12.1-15.1); White Blood Count 6.9 10^3/uL (4.0-10.0)
[2019-07-27] MEDS: LORazepam 2 mg/mL INJ 1 mL 0.25 MG IVP (05:10)
[2019-07-27 05:30] LABS: Alanine Aminotransferase 129 U/L (0-41); Albumin Level 2.5 g/dL (3.5-5.2); Alkaline Phosphatase 118 IU/L (40-130); Anion Gap 16.3 (5-19); Aspartate Amino Transferase 148 U/L (0-40); Blood Urea Nitrogen 19 mg/dL (8-23); Calcium 7.9 mg/dL (8.5-10.5); Carbon Dioxide 22 mmol/L (22-29); Chloride 104 mmol/L (98-107); Globulin 2.8 g/dL (1.3-4.6); Glomerular Filtration Rate 85.8 mL/min (90-130); Glucose 159 mg/dL (65-115); Magnesium 2.2 mg/dL (1.7-2.3); Potassium 3.3 mmol/L (3.5-5.1); Sodium 139 mmol/L (136-145); Total Bilirubin 0.7 mg/dL (0.15-1.2); Total Protein 5.3 g/dL (6.6-8.7)
[2019-07-27 06:00] LABS: Slide Review Slide Review Perform
--- NOTE | 2019-07-27 07:00 | XR_ITS ---
WS: [id number] XR chest 1V portable [id number] REASON FOR EXAM: sob FINDINGS: We again note the dense alveolar infiltrates with groundglass appearance there appears to b e some decrease in density and the changes suggesting some resolution. Lung genao are better aerated today than earlier exam. The heart is not enlarged. There is again noted hyperaeration changes. XR/XR chest 1V portable [id number] IMPRESSION: Mildly decreased alveolar infiltrates bilaterally.
[2019-07-27] MEDS: budesonide 0.5 mg/2 mL Neb INHALATION ×2 (07:26→20:21)
[2019-07-27] MEDS: linezolid premix 600 MG/300 ML PREMIX 300 MG IV ×2 (08:13→20:21)
[2019-07-27] MEDS: FUROsemide 10 mg/mL SDV 4mL 40 MG IVP (08:14)
[2019-07-27] MEDS: pantoprazole 40 mg SDV IVP (08:14)
[2019-07-27] MEDS: sodium chloride 0.9% 100 ML 25 ML ×2 (10:17→17:32)
[2019-07-27 10:29] LABS: Oxygen Device HHF
--- NOTE | 2019-07-27 11:58 | P.PN_ITS ---
Subjective Subjective: Interval history: This morning patient states that his breathing has improved, still weak, fatigued, on high flow, no fevers, no chills has a cough has a poor appetite, family at bedside Vitals/I&O/Wt Last Vital Signs Temp 98.2 F 07/26/19 08:00 Pulse 87 07/27/19 11:15 Resp 26 H 07/27/19 11:12 BP 125/73 07/27/19 10:00 Pulse Ox 87 L 07/27/19 11:12 07/26/19 07/27/19 07/27/19 22:59 06:59 14:59 Intake Total 830 / 1670 50 / 1720 Output Total 1500 / 3185 900 / 4085 1700 / 1700 Balance -670 / -1515 -850 / -2365 -1700 / -1700 Physical Exam Const: COMMON NORMALS: no apparent distress and oriented x3 HENMT: COMMON NORMALS: normocephalic HEAD & SCALP: normocephalic Neck/C-Spine: COMMON NORMALS: no JVD Resp: COMMON NORMALS: normal respiratory effort, no retractions and no use of accessory muscles AUSCULTATION: rales, rhonchi and wheezes Cardio: COMMON NORMALS: no JVD, regular rate, regular rhythm, S1 normal heart sound and S2 normal heart sound RATE: regular rate RHYTHM: regular rhythm HEART SOUNDS: S1 normal and S2 normal GI: COMMON NORMALS: normal to inspection, nondistended, normoactive bowel sounds, soft to palpation, non-tender, no hepatosplenomegaly, no masses and no bruits PALPATION: Yes soft and Yes no hepatosplenomegaly Extremity: COMMON NORMALS: normal capillary refill, no clubbing, cyanosis or edema, no calf tenderness and no pedal edema Neuro: COMMON NORMALS: oriented x3 Psych: COMMON NORMALS: mental status grossly normal Data : 07/27/19 04:30 07/27/19 04:30 Micro: Microbiology 07/26/19 02:10 MRSA Culture - Final Nose A&P Assessment and plan (1) ARDS (adult respiratory distress syndrome): -Acute respiratory distress syndrome secondary to bilateral lobe pneumonia - patient's PaO2/FiO2 ratio is only 60 on high flow, which is concerning -ABG this morning on 75% showed a pH of 7.48, PO2 of 51.5, PCO2 of 28.7 -CT scan showed bilateral infiltrates -White blood cell count 6.5, procalcitonin 18.38 -Urine bacterial antigens negative -Blood culture so far have been unremarkable -Flu negative -Viral panel pending -Sputum culture pending Plan; -ARDS protocol -Minimize tidal volumes, minimize FiO2 -Continue BiPAP -Protonix, heparin -Patient is on broad-spectrum antibiotics vancomycin and Zosyn -On Solu-Medrol 40 every 8 hours -Patient's BNP was 1500, chest x-ray shows some pulmonary vascular congestion, echocardiogram showed diastolic CHF, will give a dose of Lasix 40 mg monitor urine output -Patient's condition is critical, he is okay with elective intubation if required Status: Acute Code(s): J80 - Acute respiratory distress syndrome (2) Diastolic CHF: Status: Acute Code(s): I50.30 - Unspecified diastolic (congestive) heart failure (3) Bilateral pneumonia: Status: Acute Qualifiers: Lung location: lower lobe of lung Pneumonia type: due to unspecified organism Qualified Code(s): J18.9 - Pneumonia, unspecified organism Code(s): J18.9 - Pneumonia, unspecified organism (4) Sepsis: Status: Acute Qualifiers: Acute respiratory failure type: with hypoxia Sepsis acute organ dysfunction status: with acute organ dysfunction Sepsis type: sepsis due to unspecified organism Severe sepsis acute organ dysfunction type: acute respiratory failure Severe sepsis shock status: without septic shock Qualified Code(s): A41.9 - Sepsis, unspecified organism; R65.20 - Severe sepsis without septic shock; J96.01 - Acute respiratory failure with hypoxia Code(s): A41.9 - Sepsis, unspecified organism (5) COPD (chronic obstructive pulmonary disease): Status: Acute Code(s): J44.9 - Chronic obstructive pulmonary disease, unspecified Additional A&P Information Acute respiratory failure and sepsis secondary to community-acquired pneumonia and COPD exacerbation Failed outpatient therapy with doxycycline Sepsis criteria met with fever, tachycardia, tachypnea and lactic acidosis Continue normal saline, monitor vitals closely As patient has sepsis, CT angios shows bilateral lobe pneumonia and patchy airspace disease is quite significant, on Zyvox, azithromycin, Zosyn for broad- spectrum coverage, follow-up sputum cultures, blood cultures Decrease dose of steroids Patient has evidence of diastolic CHF, receiving Lasix therapy, potassium replacement Continue high flow as patient has had high tidal volumes on BiPAP which are associated with high mortality and [place] patient has some features of acute respiratory distress syndrome, minimize FiO2, continue steroids, continue antibiotics, monitor clinical status closely Urine antigens and blood culture ordered Sputum culture Flu panel negative Viral panel Malnourished DVT prophylaxis: Heparin Patient is full code He is high risk for intubation, currently tolerating BiPAP well Son name is Kobe Patel [phone], updated, all questions were answered to their satisfaction, GI prophylaxis: Protonix Attestations Medical Necessity Statement*: Patient requires hospitalization due to acute respiratory distress syndrome Coding Level of Care Code Acute Service Delivery Management Consultant for [facility] 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
[2019-07-27 14:43] LABS: Anion Gap 17.6 (5-19); Blood Urea Nitrogen 20 mg/dL (8-23); Calcium 7.8 mg/dL (8.5-10.5); Carbon Dioxide 25 mmol/L (22-29); Chloride 103 mmol/L (98-107); Glomerular Filtration Rate 85.8 mL/min (90-130); Glucose 141 mg/dL (65-115); Osmolality Calculated 293 mOsm/kg (285-295); Potassium 3.6 mmol/L (3.5-5.1); Sodium 142 mmol/L (136-145)
--- NOTE | 2019-07-27 17:14 | PM.PN ---
Subjective Subjective: Interval history: The patient was seen and examined. He appears to be more comfortable today. Still requiring high flow nasal cannula with an FiO2 of 60%. The patient is more awake alert and communicative. He is joking about going home. Chest x-ray obtained today revealed somewhat reduced infiltrate bilaterally. He diuresed very well with Lasix yesterday. Medications: Reviewed: Yes Vitals/I&O/Wt Last Vital Signs Temp 99 F 07/26/19 09:46 Pulse 84 07/27/19 16:00 Resp 28 H 07/27/19 16:00 BP 135/71 07/27/19 16:00 Pulse Ox 86 L 07/27/19 16:00 07/27/19 07/27/19 07/27/19 06:59 14:59 22:59 Intake Total 50 / 1720 Output Total 900 / 4085 1700 / 1700 Balance -850 / -2365 -1700 / -1700 Physical Exam Narrative: EXAM NARRATIVE: General: Patient is awake alert and oriented, in no significant distress. Neck: No JVD, no cervical or supraclavicular lymphadenopathy. Respiratory: Inspection: Barrel-shaped chest Palpation: Trachea is mildly deviated to the right, reduced expansion bilaterally Percussion: Bilateral tympanic percussion note both anterior and posteriorly Auscultation: Reduced breath sound bilaterally, no wheezing or rhonchi, occasional crackles at the right lung base Cardiovascular: Regular rate and rhythm, S1-S2 present, no murmur, no right ventricular heave, no peripheral edema. Abdomen: Soft, nontender, nondistended, positive bowel sound. No palpable organomegaly. Musculoskeletal: No obvious joint deformity Skin: No rash, no evidence of erythema nodosum or multiforme. Neuro: Mental status is normal, no gross cranial nerve deficit, normal motor and coordination. Data : 07/27/19 04:30 07/27/19 14:14 Micro: Microbiology 07/26/19 02:10 MRSA Culture - Final Nose Other data: I have reviewed the patient's laboratory, microbiology cardiology data. His blood cultures are negative. MRSA nasal PCR is negative. Legionella urine antigen and bacterial antigens are all negative. A&P Assessment and plan (1) Multilobar lung infiltrate: The patient seems to be improving slowly. We will continue the broad-spectrum antibiotic for the time being. If there is no identifiable organism, unlikely to discontinue the anti-MRSA coverage after 3 days. The patient is getting diuresed today. We can discontinue the Bean catheter tomorrow. Status: Acute Code(s): R91.8 - Other nonspecific abnormal finding of lung field (2) Acute respiratory failure: Will slowly titrate the FiO2 down. An oxygen saturation of 88% and above is good for him. I expect him to slowly get better. Given his profound emphysema and new multilobar pneumonia he is likely to need oxygen on discharge and will probably take a significant amount of time before he is able to come off of the oxygen. Status: Acute Qualifiers: Respiratory failure complication: hypoxia Qualified Code(s): J96.01 - Acute respiratory failure with hypoxia Code(s): J96.00 - Acute respiratory failure, unspecified whether with hypoxia or hypercapnia (3) COPD (chronic obstructive pulmonary disease): Continue with DuoNeb and Pulmicort nebulization for the time being. The patient needs counseling for smoking cessation and I will be happy to follow-up with him as outpatient. He will need optimization of his inhaler regimen. I will continue to follow the patient. 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
[2019-07-27] MEDS: enoxaparin 40 mg/0.4 mL Syringe SUBCUT (17:30)
[2019-07-27] MEDS: potassium chloride premix 40 MEQ/100 ML PREMIX 25 MEQ IV (17:31)
[2019-07-27] MEDS: azithromycin 500 MG in sodium chloride 0.9% 250 ML 250 MG IV (21:05)
--- NOTE | 2019-07-27 22:54 | PC.NURSE ---
Addendum entered by Maryann Mendoza RN 07/28/19 00:21: per Dr. Nuno earlier: The oxygen saturation goal is 88 and above however if the patient is comfortable and saturating between 84 to 88% it is acceptable. As long as he does not have any coronary ischemia, cardiac arrhythmia or change in mental status and oxygen saturation level of 84% is acceptable for him. Original Note: Patient feeling a bit better has repositioned self to left and right sides and onto bedpan with little effort and no complaints of pain or sob in doing so. patient visited with family a few times and seemed more upbeat when talking to them. also patients o2 sats have went from 84 to 90 back and forth. will continue to monitor and check with RT to amke sure he is breathing optimally. passed down to this nurse that Dr. Nuno said he would ok with patient being 84 to 94 but saw no notes to back that, his previous note said 88 or better. again will check with night doc if he get lower and RT.
[2019-07-28] VITALS (26 sets, daily range): BP systolic 112–138; BP diastolic 65–77; PULSE 69–112; RESP 16–27; TEMP 36.9–37.1; O2SAT 84–91
[2019-07-28] MEDS: ipratropium-albuterol 3 mL Neb INHALATION ×6 (00:26→19:42)
[2019-07-28] MEDS: piperacillin-tazobactam 3.375 GM in sodium chloride 0.9% (plus) 50 ML IV ×3 (02:41→18:16)
[2019-07-28] MEDS: ondansetron 2 mg/ML SDV 2 mL 4 MG IVP (03:31)
[2019-07-28 04:20] LABS: Basophils % 0.2 %; Hematocrit 40.2 % (42.0-52.0); Hemoglobin 12.6 g/dL (11.7-16.6); Lymphocytes # 1.4 10^3/uL (0.8-4.8); Mean Corpuscular HGB Conc 31.3 g/dL (30.0-36.0); Mean Corpuscular Volume 98.8 fL (80-94); Mean Platelet Volume 11.1 fL (7.4-10.4); Monocytes # 0.7 10^3/uL (0.2-0.9); Monocytes % 5.5 %; Neutrophils # 9.1 10^3/uL (1.8-7.7); Neutrophils % 74.8 %; Nucleated Red Blood Cells % 0.2 %; Platelet Count 206 10^3/cmm (130-400); Red Blood Count 4.07 10^6/uL (4.1-5.3); White Blood Count 12.2 10^3/uL (4.0-10.0)
[2019-07-28 04:20] LABS: ABG PCO2 34.9 mmHg (35-45); ABG PH Result 7.49 (7.35-7.45); Arterial Blood Gas Hematocrit 40.5 % (42-52); Base Excess ABG 3.5 mmol/L (-2.0-2.0); Blood Gas Sample Site Brachial, right; Blood Gas Sample Type Arterial; HCO3 ABG 26.7 mmol/L (22-26)
[2019-07-28 04:40] LABS: Alanine Aminotransferase 188 U/L (0-41); Albumin Level 2.2 g/dL (3.5-5.2); Alkaline Phosphatase 121 IU/L (40-130); Anion Gap 14.6 (5-19); Aspartate Amino Transferase 219 U/L (0-40); Blood Urea Nitrogen 18 mg/dL (8-23); Calcium 7.8 mg/dL (8.5-10.5); Carbon Dioxide 24 mmol/L (22-29); Chloride 106 mmol/L (98-107); Glomerular Filtration Rate 98.3 mL/min (90-130); Glucose 110 mg/dL (65-115); Magnesium 2.1 mg/dL (1.7-2.3); Phosphorus 2.1 mg/dL (2.5-4.5); Potassium 3.6 mmol/L (3.5-5.1); Sodium 141 mmol/L (136-145); Total Bilirubin 0.6 mg/dL (0.15-1.2); Total Protein 5.2 g/dL (6.6-8.7)
[2019-07-28 05:30] LABS: Slide Review Slide Review Perform
[2019-07-28] MEDS: linezolid premix 600 MG/300 ML PREMIX 300 MG IV ×2 (07:19→19:41)
[2019-07-28] MEDS: budesonide 0.5 mg/2 mL Neb INHALATION ×2 (07:44→19:42)
[2019-07-28] MEDS: pantoprazole 40 mg SDV IVP (09:15)
--- NOTE | 2019-07-28 17:22 | PM.PN ---
Subjective Subjective: Interval history: Patient was examined this morning while he was eating breakfast, patient states he is doing better this morning, still having intermittent episodes of shortness of breath, no fevers, no chills, no lightheadedness, dizziness, appetite somewhat improved Vitals/I&O/Wt Last Vital Signs Temp 98.6 F 07/28/19 11:00 Pulse 112 H 07/28/19 16:00 Resp 20 H 07/28/19 16:00 BP 116/66 07/28/19 16:00 Pulse Ox 87 L 07/28/19 16:00 07/28/19 07/28/19 07/28/19 06:59 14:59 22:59 Intake Total 770 / 1852.893 831.6621 / 649.0909 50 / 699.0909 Output Total 800 / 3450 Balance -30 / -1597.931 303.3553 / 649.0909 50 / 699.0909 Physical Exam Const: COMMON NORMALS: no apparent distress and oriented x3 HENMT: COMMON NORMALS: normocephalic HEAD & SCALP: normocephalic Neck/C-Spine: COMMON NORMALS: no JVD Resp: COMMON NORMALS: normal respiratory effort, no retractions, no use of accessory muscles and clear to auscultation bilaterally AUSCULTATION: clear to auscultation bilaterally Cardio: COMMON NORMALS: no JVD, regular rate, regular rhythm, S1 normal heart sound and S2 normal heart sound RATE: regular rate RHYTHM: regular rhythm HEART SOUNDS: S1 normal and S2 normal GI: COMMON NORMALS: normal to inspection, nondistended, normoactive bowel sounds, soft to palpation, non-tender, no hepatosplenomegaly, no masses and no bruits PALPATION: Yes soft and Yes no hepatosplenomegaly Extremity: COMMON NORMALS: normal capillary refill, no clubbing, cyanosis or edema, no calf tenderness and no pedal edema Neuro: COMMON NORMALS: oriented x3 Psych: COMMON NORMALS: mental status grossly normal Data : 07/28/19 03:55 07/28/19 03:55 Micro: Microbiology 07/27/19 21:45 Gram Stain - Final Sputum - Expectorated Sputum A&P Assessment and plan (1) ARDS (adult respiratory distress syndrome): -Acute respiratory distress syndrome secondary to bilateral lobe pneumonia -Clinically improving, requiring high flow during the day, will try to avoid the use of BiPAP due to high tidal volumes - patient's PaO2/FiO2 ratio is only 60 on high flow, which is concerning -Urine bacterial antigens negative -Blood culture so far have been unremarkable -Flu negative -Viral panel pending -Sputum culture have been unremarkable Plan; -ARDS protocol -Minimize tidal volumes, minimize FiO2 -Continue BiPAP -Protonix, Lovenox -Patient is on broad-spectrum antibiotics Zyvox and Zosyn and azithromycin -On nebulizer treatments -Steroids are on hold -Daily dose Lasix, 40 mg Lasix today -Patient's condition is critical, he is okay with elective intubation if required Status: Acute Code(s): J80 - Acute respiratory distress syndrome (2) Diastolic CHF: Status: Acute Code(s): I50.30 - Unspecified diastolic (congestive) heart failure (3) Bilateral pneumonia: Status: Acute Qualifiers: Lung location: lower lobe of lung Pneumonia type: due to unspecified organism Qualified Code(s): J18.9 - Pneumonia, unspecified organism Code(s): J18.9 - Pneumonia, unspecified organism (4) Sepsis: Status: Acute Qualifiers: Acute respiratory failure type: with hypoxia Sepsis acute organ dysfunction status: with acute organ dysfunction Sepsis type: sepsis due to unspecified organism Severe sepsis acute organ dysfunction type: acute respiratory failure Severe sepsis shock status: without septic shock Qualified Code(s): A41.9 - Sepsis, unspecified organism; R65.20 - Severe sepsis without septic shock; J96.01 - Acute respiratory failure with hypoxia Code(s): A41.9 - Sepsis, unspecified organism (5) COPD (chronic obstructive pulmonary disease): Status: Acute Code(s): J44.9 - Chronic obstructive pulmonary disease, unspecified Additional A&P Information Son name is Kobe Patel [phone], updated, all questions were answered to their satisfaction, GI prophylaxis: Protonix Attestations Medical Necessity Statement*: Patient requires continued hospitalization due to acute respiratory distress syndrome Coding Level of Care Code Acute 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
[2019-07-28] MEDS: enoxaparin 40 mg/0.4 mL Syringe SUBCUT (18:16)
[2019-07-28] MEDS: azithromycin 500 MG in sodium chloride 0.9% 250 ML 250 MG IV (20:53)
[2019-07-29] VITALS (29 sets, daily range): BP systolic 115–135; BP diastolic 73–90; PULSE 77–103; RESP 20–28; TEMP 36.1–37.5; O2SAT 83–94
[2019-07-29] MEDS: ipratropium-albuterol 3 mL Neb INHALATION ×6 (00:09→20:20)
[2019-07-29] MEDS: piperacillin-tazobactam 3.375 GM in sodium chloride 0.9% (plus) 50 ML IV ×3 (01:59→18:27)
[2019-07-29 04:57] LABS: ABG PCO2 30.3 mmHg (35-45); ABG PH Result 7.54 (7.35-7.45); Arterial Blood Gas Hematocrit 42.6 % (42-52); Base Excess ABG 4.1 mmol/L (-2.0-2.0); Blood Gas Allen Test Pos; Blood Gas Sample Site Brachial, left; Blood Gas Sample Type Arterial; Oxygen Device NC; PO2 ABG 43.1 mmHg (80.0-100.0)
[2019-07-29 05:06] LABS: Basophils % 0.2 %; Eosinophils % 0.2 %; Hematocrit 41.7 % (42.0-52.0); Hemoglobin 13.7 g/dL (11.7-16.6); Lymphocytes % 7.4 %; Mean Corpuscular HGB Conc 32.9 g/dL (30.0-36.0); Mean Corpuscular Hemoglobin 31.5 pg (28.0-34.0); Mean Corpuscular Volume 95.9 fL (80-94); Mean Platelet Volume 11.2 fL (7.4-10.4); Monocytes # 0.3 10^3/uL (0.2-0.9); Monocytes % 2.2 %; Neutrophils # 10.6 10^3/uL (1.8-7.7); Neutrophils % 81.5 %; Nucleated Red Blood Cells % 0 %; Platelet Count 186 10^3/cmm (130-400); Red Blood Count 4.35 10^6/uL (4.1-5.3)
[2019-07-29 05:29] LABS: Alanine Aminotransferase 179 U/L (0-41); Albumin Level 2.2 g/dL (3.5-5.2); Alkaline Phosphatase 121 IU/L (40-130); Anion Gap 15.1 (5-19); Aspartate Amino Transferase 114 U/L (0-40); Blood Urea Nitrogen 13 mg/dL (8-23); Calcium 8.2 mg/dL (8.5-10.5); Carbon Dioxide 23 mmol/L (22-29); Chloride 102 mmol/L (98-107); Creatinine Clr Calc Pharmacy 98.5556; Globulin 3.3 g/dL (1.3-4.6); Glomerular Filtration Rate 114.6 mL/min (90-130); Glucose 114 mg/dL (65-115); Magnesium 1.9 mg/dL (1.7-2.3); Phosphorus 2.3 mg/dL (2.5-4.5); Potassium 4.1 mmol/L (3.5-5.1); Sodium 136 mmol/L (136-145); Total Bilirubin 0.9 mg/dL (0.15-1.2); Total Protein 5.5 g/dL (6.6-8.7)
[2019-07-29 05:40] LABS: Procalcitonin 0.87 ng/mL (0-0.5)
[2019-07-29 06:24] LABS: Slide Review Slide Review Perform
--- NOTE | 2019-07-29 07:00 | XR_ITS ---
WS: [id number] XR chest 1V portable [id number] REASON FOR EXAM: sob FINDINGS: Persistent reticular nodular pattern throughout both lung genao unchanged since earlier ex am. There appears to be a prominent bullae in the left mid chest. The heart is not enlarged with arteriosclerotic changes. XR/XR chest 1V portable [id number] IMPRESSION: Unchanged reticular nodular pattern both lung genao Bullous changes in left mid chest.
[2019-07-29] MEDS: budesonide 0.5 mg/2 mL Neb INHALATION ×2 (07:30→20:20)
[2019-07-29] MEDS: linezolid premix 600 MG/300 ML PREMIX 300 MG IV ×2 (07:51→20:45)
[2019-07-29] MEDS: pantoprazole 40 mg SDV IVP (08:00)
[2019-07-29 08:27] LABS: ABG PH Result 7.53 (7.35-7.45); Alveolar-Arterial Oxygen Gradi 432.5 mmHg (5-10); Arterial Blood Gas Hematocrit 42.6 % (42-52); Base Excess ABG 3.4 mmol/L (-2.0-2.0); Blood Gas Allen Test Pos; Blood Gas Sample Site Brachial, right; Blood Gas Sample Type Arterial; Carboxyhemoglobin 0.5 %THgb (0.4-20.1); HCO3 ABG 25.6 mmol/L (22-26); HGB O2 Sat 91.8 % (95-100); Ionized Calcium Level - ABG 1.1 mmol/L (1.1-1.4); Methemoglobin 0.6 % (0.4-1.5); Oxygen Saturation ABG 92.8; PO2 ABG 58.8 mmHg (80.0-100.0); Potassium Level - ABG 3.8 mmol/L (3.5-5.0); Total Hemoglobin 13.9 g/dL (14-18)
[2019-07-29] MEDS: FUROsemide 10 mg/mL SDV 4mL 40 MG IVP (09:18)
[2019-07-29 12:02] LABS: Adenovirus Not Detected (Not Detected); Human Metapneumovirus Not Detected (Not Detected); Human Parainflu Virus 1 Not Detected (Not Detected); Human Parainflu Virus 2 Not Detected (Not Detected); Human Parainflu Virus 3 Not Detected (Not Detected); Human Rsv A Not Detected (Not Detected); Influenza A Detected (Not Detected); Influenza B Not Detected (Not Detected); Rhinovirus/Enterovirus Not Detected (Not Detected)
--- NOTE | 2019-07-29 15:29 | PM.PN ---
Subjective Subjective: Interval history: This morning patient is lying in bed, is on high flow, states that he is doing much better, is having intermittent episodes of shortness of breath, no lightheadedness, dizziness, no chest pain Medications: Reviewed: Yes Vitals/I&O/Wt Last Vital Signs Temp 98.0 F 07/29/19 12:00 Pulse 90 07/29/19 14:47 Resp 21 H 07/29/19 14:47 BP 122/76 07/29/19 14:00 Pulse Ox 93 07/29/19 14:47 07/29/19 07/29/19 07/29/19 06:59 14:59 22:59 Intake Total 50 / 1349.0909 400 / 400 Balance 50 / 699.0909 400 / 400 Physical Exam Const: COMMON NORMALS: no apparent distress and oriented x3 GENERAL APPEARANCE: cooperative, in distress and ill appearing NUTRITIONAL APPEARANCE: thin HENMT: COMMON NORMALS: normocephalic HEAD & SCALP: normocephalic Neck/C-Spine: COMMON NORMALS: no JVD Chest: COMMONS NORMALS: inspection of chest normal Resp: COMMON NORMALS: normal respiratory effort, no retractions and no use of accessory muscles EFFORT & INSPECTION: Yes able to speak in complete sentences, Yes tachypneic, Yes respiratory distress, Yes actively coughing and Yes retractions AUSCULTATION: wheezes Cardio: COMMON NORMALS: no JVD, regular rate, regular rhythm, S1 normal heart sound and S2 normal heart sound RATE: regular rate RHYTHM: regular rhythm HEART SOUNDS: S1 normal and S2 normal GI: COMMON NORMALS: normal to inspection, nondistended, normoactive bowel sounds, soft to palpation, non-tender, no hepatosplenomegaly, no masses and no bruits PALPATION: Yes soft and Yes no hepatosplenomegaly : COMMON NORMALS: Yes no CVA tenderness BLADDER/KIDNEY EXAM: Yes no CVA tenderness Back/Pelvis: COMMON NORMALS: no CVA tenderness Extremity: COMMON NORMALS: normal capillary refill, no clubbing, cyanosis or edema, no calf tenderness and no pedal edema Neuro: COMMON NORMALS: oriented x3 Psych: COMMON NORMALS: mental status grossly normal Data : 07/29/19 04:45 07/29/19 04:45 Micro: Microbiology 07/27/19 21:45 Gram Stain - Final Sputum - Expectorated Sputum Sputum Culture - Preliminary A&P Assessment and plan (1) ARDS (adult respiratory distress syndrome): -Acute respiratory distress syndrome secondary to bilateral lobe pneumonia -Clinically improving, requiring high flow during the day, will try to avoid the use of BiPAP due to high tidal volumes -Urine bacterial antigens negative -Blood culture so far have been unremarkable -Flu negative -Viral panel pending -Sputum culture have been unremarkable Plan; -ARDS protocol -Minimize tidal volumes, minimize FiO2 -Continue high flow intermittent BiPAP -Protonix, Lovenox -Patient is on broad-spectrum antibiotics Zyvox and Zosyn and azithromycin -On nebulizer treatments -Steroids are on hold -Daily dose Lasix, 40 mg Lasix today -Patient's condition is critical, he is okay with elective intubation if required Status: Acute Code(s): J80 - Acute respiratory distress syndrome (2) Diastolic CHF: Status: Acute Code(s): I50.30 - Unspecified diastolic (congestive) heart failure (3) Bilateral pneumonia: Status: Acute Qualifiers: Lung location: lower lobe of lung Pneumonia type: due to unspecified organism Qualified Code(s): J18.9 - Pneumonia, unspecified organism Code(s): J18.9 - Pneumonia, unspecified organism (4) Sepsis: Status: Acute Qualifiers: Acute respiratory failure type: with hypoxia Sepsis acute organ dysfunction status: with acute organ dysfunction Sepsis type: sepsis due to unspecified organism Severe sepsis acute organ dysfunction type: acute respiratory failure Severe sepsis shock status: without septic shock Qualified Code(s): A41.9 - Sepsis, unspecified organism; R65.20 - Severe sepsis without septic shock; J96.01 - Acute respiratory failure with hypoxia Code(s): A41.9 - Sepsis, unspecified organism (5) COPD (chronic obstructive pulmonary disease): Status: Acute Code(s): J44.9 - Chronic obstructive pulmonary disease, unspecified Additional A&P Information Son name is Koeb Patel [phone], updated, all questions were answered to their satisfaction, GI prophylaxis: Protonix Attestations Medical Necessity Statement*: Patient requires hospitalization due to acute respiratory distress syndrome Coding Level of Care Code Acute Member Of Technical Staff for [facility] 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
[2019-07-29] MEDS: enoxaparin 40 mg/0.4 mL Syringe SUBCUT (18:28)
[2019-07-29] MEDS: azithromycin 500 MG in sodium chloride 0.9% 250 ML 250 MG IV (21:17)
[2019-07-30] VITALS (38 sets, daily range): BP systolic 87–140; BP diastolic 66–85; PULSE 82–112; RESP 16–29; TEMP 36.6–37.4; O2SAT 82–95
[2019-07-30] MEDS: piperacillin-tazobactam 3.375 GM in sodium chloride 0.9% (plus) 50 ML IV ×3 (02:45→17:51)
[2019-07-30] MEDS: ipratropium-albuterol 3 mL Neb INHALATION ×7 (03:15→23:29)
[2019-07-30] MEDS: morphine 4 mg/mL SDV 1 mL 1 MG IVP (04:20)
[2019-07-30 04:37] LABS: Basophils % 0.1 %; Eosinophils % 0.1 %; Hematocrit 41.8 % (42.0-52.0); Hemoglobin 13.5 g/dL (11.7-16.6); Lymphocytes # 0.6 10^3/uL (0.8-4.8); Lymphocytes % 3.9 %; Mean Corpuscular HGB Conc 32.3 g/dL (30.0-36.0); Mean Corpuscular Volume 92.9 fL (80-94); Monocytes # 0.5 10^3/uL (0.2-0.9); Monocytes % 3.1 %; Neutrophils # 13.2 10^3/uL (1.8-7.7); Neutrophils % 89.1 %; Nucleated Red Blood Cells % 0 %; Platelet Count 205 10^3/cmm (130-400); Red Cell Distribution Width 13.8 % (12.1-15.1); White Blood Count 14.8 10^3/uL (4.0-10.0)
[2019-07-30 04:51] LABS: Alanine Aminotransferase 123 U/L (0-41); Albumin Level 2.2 g/dL (3.5-5.2); Alkaline Phosphatase 111 IU/L (40-130); Anion Gap 15.7 (5-19); Aspartate Amino Transferase 54 U/L (0-40); Blood Urea Nitrogen 16 mg/dL (8-23); Calcium 8.4 mg/dL (8.5-10.5); Carbon Dioxide 24 mmol/L (22-29); Chloride 100 mmol/L (98-107); Creatinine Clr Calc Pharmacy 98.5556; Globulin 3.6 g/dL (1.3-4.6); Glomerular Filtration Rate 114.6 mL/min (90-130); Glucose 110 mg/dL (65-115); Magnesium 1.9 mg/dL (1.7-2.3); Potassium 3.7 mmol/L (3.5-5.1); Sodium 136 mmol/L (136-145); Total Bilirubin 0.9 mg/dL (0.15-1.2); Total Protein 5.8 g/dL (6.6-8.7)
[2019-07-30 05:04] LABS: Procalcitonin 0.62 ng/mL (0-0.5)
[2019-07-30 05:14] LABS: ABG PCO2 32.2 mmHg (35-45); ABG PH Result 7.51 (7.35-7.45); Arterial Blood Gas Hematocrit 41.7 % (42-52); Base Excess ABG 2.9 mmol/L (-2.0-2.0); Blood Gas Allen Test Pos; Blood Gas Sample Site Radial, right; Blood Gas Sample Type Arterial; HCO3 ABG 25.5 mmol/L (22-26); Oxygen Device HAG; PO2 ABG 72.5 mmHg (80.0-100.0)
[2019-07-30] MEDS: linezolid premix 600 MG/300 ML PREMIX 300 MG IV ×2 (07:39→20:30)
[2019-07-30] MEDS: budesonide 0.5 mg/2 mL Neb INHALATION ×2 (07:48→20:18)
[2019-07-30] MEDS: pantoprazole 40 mg SDV IVP ×2 (09:08→09:14)
[2019-07-30] MEDS: sodium chloride 0.9% 1,000 ML 50 ML IV (09:23)
--- NOTE | 2019-07-30 12:57 | PC.NURSE ---
awake dyspnic at this time o2 high flow in place up in bed visiting with family
[2019-07-30 14:32] LABS: Partial Thromboplastin Time 27.6 SECONDS (23.9-36.7)
--- NOTE | 2019-07-30 15:27 | PC.NURSE ---
Patient transferred to bedside recliner. Patient handled activity well. Patient's bed linens changed. Patient sitting upright in bedside recliner, Call light within reach.
--- NOTE | 2019-07-30 15:52 | P.PN_ITS ---
Subjective Subjective: Interval history: Patient has no complaints this morning, denies chest pain, shortness of breath, lightheadedness, dizziness, does have some degree of poor oral intake of fluids, patient has not gotten up out of bed Patient's viral PCR came back positive for influenza, likely his nasal influenza was a false negative, Tamiflu was started today, droplet precautions, Today patient has wheezing in bilateral lung genao, will start steroid therapy today We will start gentle hydration at 50 cc an hour's, instructions to get up out of bed, continue high flow, continue interventions, patient is clinically improving Vitals/I&O/Wt Last Vital Signs Temp 99.4 F 07/30/19 06:21 Pulse 102 H 07/30/19 14:59 Resp 20 H 07/30/19 14:59 BP 128/77 07/30/19 14:00 Pulse Ox 94 07/30/19 14:59 07/30/19 07/30/19 07/30/19 06:59 14:59 22:59 Intake Total 150 / 2497.0079 Output Total 900 / 900 Balance 150 / -302.9921 -900 / -900 Physical Exam Const: COMMON NORMALS: no apparent distress and oriented x3 HENMT: COMMON NORMALS: normocephalic HEAD & SCALP: normocephalic Neck/C-Spine: COMMON NORMALS: no JVD Resp: COMMON NORMALS: normal respiratory effort, no retractions and no use of accessory muscles EFFORT & INSPECTION: Yes actively coughing and Yes audible wheezes AUSCULTATION: wheezes Cardio: COMMON NORMALS: no JVD, regular rate, regular rhythm, S1 normal heart sound and S2 normal heart sound RATE: regular rate RHYTHM: regular rhythm HEART SOUNDS: S1 normal and S2 normal GI: COMMON NORMALS: normal to inspection, nondistended, normoactive bowel s ounds, soft to palpation, non-tender, no hepatosplenomegaly, no masses and no bruits PALPATION: Yes soft and Yes no hepatosplenomegaly Extremity: COMMON NORMALS: normal capillary refill, no clubbing, cyanosis or edema, no calf tenderness and no pedal edema Neuro: COMMON NORMALS: oriented x3 Psych: COMMON NORMALS: mental status grossly normal Data : 07/30/19 04:15 07/30/19 04:15 Micro: Microbiology 07/27/19 21:45 Gram Stain - Final Sputum - Expectorated Sputum Sputum Culture - Final 07/24/19 20:28 Blood Culture - Final Blood NO GROWTH AFTER 5 DAYS 07/24/19 19:15 Blood Culture - Final Blood NO GROWTH AFTER 5 DAYS A&P Assessment and plan (1) ARDS (adult respiratory distress syndrome): -Acute respiratory distress syndrome secondary to bilateral lobe pneumonia and influenza A -Clinically improving, requiring high flow during the day, will try to avoid the use of BiPAP due to high tidal volumes -Urine bacterial antigens negative -Blood culture so far have been unremarkable -Flu negative -Viral panel came positive for influenza A -Sputum culture have been unremarkable, blood cultures unremarkable Plan; -ARDS protocol -Minimize tidal volumes, minimize FiO2 -Continue high flow and intermittent BiPAP -I have started steroids today as patient has wheezing in bilateral lung genao -I have started Tamiflu 75 mg twice daily as patient came back positive for influenza A on his viral PCR, likely his nasal influenza was a false negative, droplet precautions -Protonix, Lovenox -Patient is on broad-spectrum antibiotics Zyvox and Zosyn and azithromycin -On nebulizer treatments -Steroids are on hold -Hold off on Lasix today as patient looks dry -Patient's condition is critical, he is okay with elective intubation if required Status: Acute Code(s): J80 - Acute respiratory distress syndrome (2) Diastolic CHF: Status: Acute Code(s): I50.30 - Unspecified diastolic (congestive) heart failure (3) Bilateral pneumonia: Status: Acute Qualifiers: Lung location: lower lobe of lung Pneumonia type: due to unspecified organism Qualified Code(s): J18.9 - Pneumonia, unspecified organism Code(s): J18.9 - Pneumonia, unspecified organism (4) Sepsis: Status: Acute Qualifiers: Acute respiratory failure type: with hypoxia Sepsis acute organ d ysfunction status: with acute organ dysfunction Sepsis type: sepsis due to unspecified organism Severe sepsis acute organ dysfunction type: acute respiratory failure Severe sepsis shock status: without septic shock Qualified Code(s): A41.9 - Sepsis, unspecified organism; R65.20 - Severe sepsis without septic shock; J96.01 - Acute respiratory failure with hypoxia Code(s): A41.9 - Sepsis, unspecified organism (5) COPD (chronic obstructive pulmonary disease): Status: Acute Code(s): J44.9 - Chronic obstructive pulmonary disease, unspecified Additional A&P Information Son name is Kobe Patel [phone], updated, all questions were answered to their satisfaction, GI prophylaxis: Protonix Attestations Medical Necessity Statement*: Patient requires hospitalization due to acute respiratory distress syndrome secondary to bilateral pneumonia, influenza a Coding Level of Care Code Acute Weight Trainer for [facility] 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
[2019-07-30] MEDS: oseltamivir phosphate 75 mg Capsule PO (16:26)
[2019-07-30] MEDS: enoxaparin 40 mg/0.4 mL Syringe SUBCUT (18:17)
[2019-07-30 18:32] LABS: Blood Gas CCRB Time 2140
[2019-07-30] MEDS: azithromycin 500 MG in sodium chloride 0.9% 250 ML 250 MG IV (21:36)
[2019-07-31] VITALS (28 sets, daily range): BP systolic 110–128; BP diastolic 64–79; PULSE 72–107; RESP 13–28; TEMP 36.6; O2SAT 75–99
[2019-07-31] MEDS: piperacillin-tazobactam 3.375 GM in sodium chloride 0.9% (plus) 50 ML IV ×3 (03:15→17:15)
[2019-07-31] MEDS: ipratropium-albuterol 3 mL Neb INHALATION ×5 (03:34→20:18)
[2019-07-31] MEDS: sodium chloride 0.9% 1,000 ML 50 ML IV (04:56)
[2019-07-31 05:17] LABS: Basophils % 0.1 %; Hematocrit 39.2 % (42.0-52.0); Hemoglobin 12.6 g/dL (11.7-16.6); Lymphocytes # 0.4 10^3/uL (0.8-4.8); Lymphocytes % 4.2 %; Mean Corpuscular HGB Conc 32.1 g/dL (30.0-36.0); Mean Corpuscular Hemoglobin 30.9 pg (28.0-34.0); Mean Corpuscular Volume 96.1 fL (80-94); Mean Platelet Volume 10.3 fL (7.4-10.4); Monocytes # 0.5 10^3/uL (0.2-0.9); Monocytes % 4.7 %; Neutrophils # 9.2 10^3/uL (1.8-7.7); Neutrophils % 88.7 %; Nucleated Red Blood Cells % 0 %; Platelet Count 213 10^3/cmm (130-400); Red Blood Count 4.08 10^6/uL (4.1-5.3); Red Cell Distribution Width 13.6 % (12.1-15.1); White Blood Count 10.3 10^3/uL (4.0-10.0)
[2019-07-31 05:24] LABS: ABG PCO2 33.3 mmHg (35-45); ABG PH Result 7.48 (7.35-7.45); Arterial Blood Gas Hematocrit 39.8 % (42-52); Base Excess ABG 1.8 mmol/L (-2.0-2.0); Blood Gas Allen Test Pos; Blood Gas Sample Site Radial, right; Blood Gas Sample Type Arterial; HCO3 ABG 24.8 mmol/L (22-26); Oxygen Device HAG; PO2 ABG 65.2 mmHg (80.0-100.0)
[2019-07-31 05:48] LABS: Procalcitonin 0.42 ng/mL (0-0.5)
[2019-07-31 05:50] LABS: Alanine Aminotransferase 92 U/L (0-41); Albumin Level 2.3 g/dL (3.5-5.2); Alkaline Phosphatase 98 IU/L (40-130); Aspartate Amino Transferase 35 U/L (0-40); Blood Urea Nitrogen 15 mg/dL (8-23); Calcium 8.3 mg/dL (8.5-10.5); Carbon Dioxide 23 mmol/L (22-29); Chloride 107 mmol/L (98-107); Globulin 3.4 g/dL (1.3-4.6); Glucose 164 mg/dL (65-115); Magnesium 2.1 mg/dL (1.7-2.3); Phosphorus 2.2 mg/dL (2.5-4.5); Sodium 139 mmol/L (136-145); Total Bilirubin 0.5 mg/dL (0.15-1.2); Total Protein 5.7 g/dL (6.6-8.7)
[2019-07-31] MEDS: budesonide 0.5 mg/2 mL Neb INHALATION ×2 (07:41→20:18)
--- NOTE | 2019-07-31 08:08 | PM.PN ---
Subjective Subjective: Interval history: José reports he feels about the same as yesterday. Still short of breath. Oxygen has been difficult to wean. He reports no significant sputum production. Medications: Reviewed: Yes Vitals/I&O/Wt Last Vital Signs Temp 97.9 F 07/30/19 22:00 Pulse 75 07/31/19 07:44 Resp 17 07/31/19 07:44 BP 118/75 07/31/19 06:00 Pulse Ox 96 07/31/19 07:44 07/30/19 07/31/19 07/31/19 21:59 06:59 14:59 Intake Total Output Total Balance Physical Exam Narrative: EXAM NARRATIVE: General exam mild respiratory distress Cardiovascular regular rate and rhythm Lungs diminished breath sounds bilaterally but no wheezing Abdomen is soft, positive bowel sounds Extremities no cyanosis clubbing or edema Data : 07/31/19 04:57 07/31/19 04:57 Micro: Microbiology 07/27/19 21:45 Gram Stain - Final Sputum - Expectorated Sputum Sputum Culture - Final A&P Assessment and plan (1) ARDS (adult respiratory distress syndrome): Presumably secondary to influenza, he is influenza A positive. Continue Tamiflu. Continue high flow oxygen Continue pulmonary toilet for COPD exacerbation Discontinue IV steroids. Change to prednisone 40 mg daily. Discontinue IV fluids Lasix 20 mg IV x1 Status: Acute Code(s): J80 - Acute respiratory distress syndrome (2) Diastolic CHF: Discontinue fluids Lasix 20 mg IV x1 Status: Acute Code(s): I50.30 - Unspecified diastolic (congestive) heart failure (3) Bilateral pneumonia: Continue linezolid, Zosyn currently Associated with acute hypoxic respiratory failure Status: Acute Qualifiers: Lung location: lower lobe of lung Pneumonia type: due to unspecified organism Qualified Code(s): J18.9 - Pneumonia, unspecified organism Code(s): J18.9 - Pneumonia, unspecified organism (4) Sepsis: Antibiotics as above Status: Acute Qualifiers: Acute respiratory failure type: with hypoxia Sepsis acute organ dysfunction status: with acute organ dysfunction Sepsis type: sepsis due to unspecified organism Severe sepsis acute organ dysfunction type: acute respiratory failure Severe sepsis shock status: without septic shock Qualified Code(s): A41.9 - Sepsis, unspecified organism; R65.20 - Severe sepsis without septic shock; J96.01 - Acute respiratory failure with hypoxia Code(s): A41.9 - Sepsis, unspecified organism (5) COPD (chronic obstructive pulmonary disease): Status: Acute Code(s): J44.9 - Chronic obstructive pulmonary disease, unspecified Additional A&P Information Transaminitis, improved Son name is Kobe Patel [phone], updated, all questions were answered to their satisfaction, GI prophylaxis: Protonix Attestations Medical Necessity Statement*: To need hospitalization secondary to ARDS following influenza A requiring high flow oxygen. Coding Level of Care Code Acute Asbestos Shingle Inspector for [facility] 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
[2019-07-31] MEDS: oseltamivir phosphate 75 mg Capsule PO ×2 (08:28→17:14)
[2019-07-31] MEDS: predniSONE 20 mg Tablet 40 MG PO (08:28)
[2019-07-31] MEDS: linezolid premix 600 MG/300 ML PREMIX 300 MG IV ×2 (08:28→20:20)
[2019-07-31] MEDS: FUROsemide 10 mg/mL SDV 2mL 20 MG IVP (08:29)
[2019-07-31] MEDS: enoxaparin 40 mg/0.4 mL Syringe SUBCUT (17:14)
[2019-07-31] MEDS: azithromycin 500 MG in sodium chloride 0.9% 250 ML 250 MG IV (20:29)
[2019-08-01] VITALS (30 sets, daily range): BP systolic 99–134; BP diastolic 54–83; PULSE 72–126; RESP 14–28; TEMP 36.9–37.3; O2SAT 91–98
[2019-08-01] MEDS: ipratropium-albuterol 3 mL Neb INHALATION ×7 (00:02→23:17)
[2019-08-01] MEDS: piperacillin-tazobactam 3.375 GM in sodium chloride 0.9% (plus) 50 ML IV ×3 (03:04→19:07)
[2019-08-01 05:49] LABS: Anion Gap 13.8 (5-19); Blood Urea Nitrogen 23 mg/dL (8-23); Calcium 8.2 mg/dL (8.5-10.5); Carbon Dioxide 23 mmol/L (22-29); Chloride 109 mmol/L (98-107); Glucose 95 mg/dL (65-115); Osmolality Calculated 291 mOsm/kg (285-295); Potassium 3.8 mmol/L (3.5-5.1); Sodium 142 mmol/L (136-145)
[2019-08-01] MEDS: predniSONE 20 mg Tablet 40 MG PO (08:53)
[2019-08-01] MEDS: oseltamivir phosphate 75 mg Capsule PO ×2 (08:53→18:07)
[2019-08-01] MEDS: linezolid premix 600 MG/300 ML PREMIX 300 MG IV ×2 (08:53→21:24)
[2019-08-01] MEDS: pantoprazole 40 mg SDV IVP (08:53)
[2019-08-01] MEDS: budesonide 0.5 mg/2 mL Neb INHALATION ×2 (09:02→20:01)
--- NOTE | 2019-08-01 09:37 | PC.CHAP ---
Pastoral Care Encounter/Spiritual Assessment Type of Contact [] Declined software developer consultant visit [] Patient/Family/Request visit [] Outpatient visit [] Follow-up visit [] Physician referral [] Code/Alert [] Routine visit [] Staff referral [] Actively dying [] Patient sleeping [] Family support [] [] Out of room [] Palliative care [] [] Receiving care in room [] Pre-surgical visit [] Trauma [] Long length of stay [x] ICU visit [x] Other: Patient in isolation Relational/Emotional Strength [] Patient feels connected with others/family/visitors/staff [] Distress [] Loneliness/isolation [] Abandonment Spirituality of Patient [] Person of Britta [] Attends Gnosticist of their Britta [] Believes in Prayer [] Reads Bible or Christianity materials [] There are Spiritual issues to be addressed Mechanical Maintenance Interventions [] Prayer [] Active listening [] Non-anxious presence [] Spiritual/emotional support [] Crisis/trauma care [] Spiritual counseling [] Bereavement support [] Provided bereavement packet [] Provided Bible/devotional materials [] Provided toy/stuffed animal, coloring book to patient or family member [] Provided Communion [] Anointing/[place] [] Salvation [] Completed spiritual assessment [] Other: Impact on Illness or Injury [] Angry [] Fearful [] Anxious [] Often cries [] Exhaustion [] Unable to work [] Unable to attend scientologist [] Unable to walk/stand [] Unable to read [] Unable to drive [] Unable to eat/drink [] Unable to sleep [] Unable to be with family [] Patient intubated [] Other: Summary Patient was under precautions at the time of software developer consultant visit. Visit was attempted by Mechanical Maintenance Nicola Monroy. Time spent with patient 3 minutes
--- NOTE | 2019-08-01 10:58 | P.PN_ITS ---
Subjective Subjective: Interval history: José reports he may be a little bit better than yesterday. Denies any productivity to his cough. He did sit up quite a bit yesterday. Medications: Reviewed: Yes Vitals/I&O/Wt Last Vital Signs Temp 98.4 F 08/01/19 03:04 Pulse 101 H 08/01/19 10:00 Resp 25 H 08/01/19 10:00 BP 121/72 08/01/19 10:00 Pulse Ox 92 08/01/19 10:00 07/31/19 08/01/19 08/01/19 22:59 06:59 14:59 Intake Total 1678.350 / 2128.350 350 / 350 Output Total 1999 Balance 1678.350 / 1478.350 -1650 / -1650 Physical Exam Narrative: EXAM NARRATIVE: General exam. No obvious distress today. Appears a little bit brighter. Cardiovascular regular rate and rhythm Lungs diminished breath sounds bilaterally but no wheezing Abdomen is soft, positive bowel sounds Extremities no cyanosis clubbing or edema Data : 07/31/19 04:57 08/01/19 05:00 A&P Assessment and plan (1) ARDS (adult respiratory distress syndrome): Presumably secondary to influenza, he is influenza A positive. Continue Tamiflu. Continue high flow oxygen. Wean as tolerated. He is down to 70%. Continue pulmonary toilet for COPD exacerbation Continue oral prednisone at 40 mg a day. Consider discontinuing this tomorrow. Lasix 20 mg IV x1 today Status: Acute Code(s): J80 - Acute respiratory distress syndrome (2) Diastolic CHF: Lasix 20 mg IV x1 today Status: Acute Code(s): I50.30 - Unspecified diastolic (congestive) heart failure (3) Bilateral pneumonia: Continue linezolid, Zosyn currently Associated with acute hypoxic respiratory failure Status: Acute Qualifiers: Lung location: lower lobe of lung Pneumonia type: due to unspecified organism Qualified Code(s): J18.9 - Pneumonia, unspecified organism Code(s): J18.9 - Pneumonia, unspecified organism (4) Sepsis: Antibiotics as above Status: Acute Qualifiers: Acute respiratory failure type: with hypoxia Sepsis acute organ dysfunction status: with acute organ dysfunction Sepsis type: sepsis due to unspecified organism Severe sepsis acute organ dysfunction type: acute respiratory failure Severe sepsis shock status: without septic shock Qualified Code(s): A41.9 - Sepsis, unspecified organism; R65.20 - Severe sepsis without septic shock; J96.01 - Acute respiratory failure with hypoxia Code(s): A41.9 - Sepsis, unspecified organism (5) COPD (chronic obstructive pulmonary disease): Very slow improvement. Status: Acute Code(s): J44.9 - Chronic obstructive pulmonary disease, unspecified Additional A&P Information Transaminitis, improved Son name is Kobe Patel [phone], updated, all questions were answered to their satisfaction, GI prophylaxis: Protonix Attestations Medical Necessity Statement*: Needs continued hospitalization for IV antibiotics secondary to pneumonia, FiO2 for ARDS. Coding Level of Care Code Acute Director Security Risk Management for [facility] 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
[2019-08-01] MEDS: FUROsemide 10 mg/mL SDV 2mL 20 MG IVP (11:23)
[2019-08-01] MEDS: enoxaparin 40 mg/0.4 mL Syringe SUBCUT (19:08)
[2019-08-02] VITALS (19 sets, daily range): BP systolic 105–140; BP diastolic 61–77; PULSE 82–120; RESP 17–20; TEMP 37–37.2; O2SAT 91–100
[2019-08-02] MEDS: piperacillin-tazobactam 3.375 GM in sodium chloride 0.9% (plus) 50 ML IV ×2 (03:01→09:16)
[2019-08-02] MEDS: ipratropium-albuterol 3 mL Neb INHALATION ×6 (03:21→23:48)
[2019-08-02 05:52] LABS: Basophils % 0.1 %; Hematocrit 36.1 % (42.0-52.0); Hemoglobin 11.7 g/dL (11.7-16.6); Lymphocytes # 0.9 10^3/uL (0.8-4.8); Lymphocytes % 6.7 %; Mean Corpuscular HGB Conc 32.4 g/dL (30.0-36.0); Mean Corpuscular Hemoglobin 31.3 pg (28.0-34.0); Mean Corpuscular Volume 96.5 fL (80-94); Mean Platelet Volume 10.2 fL (7.4-10.4); Monocytes # 1.3 10^3/uL (0.2-0.9); Monocytes % 9.8 %; Neutrophils # 10.8 10^3/uL (1.8-7.7); Neutrophils % 82.7 %; Nucleated Red Blood Cells % 0 %; Platelet Count 228 10^3/cmm (130-400); Red Blood Count 3.74 10^6/uL (4.1-5.3); Red Cell Distribution Width 13.6 % (12.1-15.1)
[2019-08-02 06:13] LABS: Alanine Aminotransferase 86 U/L (0-41); Albumin Level 2.3 g/dL (3.5-5.2); Alkaline Phosphatase 102 IU/L (40-130); Anion Gap 13.5 (5-19); Aspartate Amino Transferase 30 U/L (0-40); Blood Urea Nitrogen 19 mg/dL (8-23); Carbon Dioxide 25 mmol/L (22-29); Chloride 106 mmol/L (98-107); Globulin 3.3 g/dL (1.3-4.6); Glucose 143 mg/dL (65-115); Osmolality Calculated 291 mOsm/kg (285-295); Potassium 3.5 mmol/L (3.5-5.1); Sodium 141 mmol/L (136-145); Total Bilirubin 0.5 mg/dL (0.15-1.2); Total Protein 5.6 g/dL (6.6-8.7)
[2019-08-02] MEDS: budesonide 0.5 mg/2 mL Neb INHALATION ×2 (07:42→19:51)
[2019-08-02] MEDS: predniSONE 20 mg Tablet 40 MG PO (09:02)
[2019-08-02] MEDS: pantoprazole 40 mg SDV IVP (09:02)
[2019-08-02] MEDS: oseltamivir phosphate 75 mg Capsule PO ×2 (09:03→18:01)
[2019-08-02] MEDS: linezolid premix 600 MG/300 ML PREMIX 300 MG IV ×2 (09:03→19:29)
--- NOTE | 2019-08-02 10:47 | USCV_ITS ---
José Patel Age: 59 Gender: M : 1960 Exam Date: 08/02/2019 14:12 Ordering Phys: Kevin Florian MD Technologist: Rosemary Suggs Exam Location: [facility] [place] Indication: CP PROCEDURES: Venous duplex imaging was performed in bilateral lower extremities. The following venous structures were evaluated: common femoral vein, profunda vein, proximal portion of the greater saphenous vein, superficial femoral vein, and the popliteal vein. In addition, the posterior tibial and peroneal trunk were evaluated. FINDINGS: Normal 2-D Doppler and augmentation and compressibility throughout the lower extremity venous structures. Additional imaging through the proximal calf veins also reveals no thrombus. Limited evaluation of the greater saphenous vein is patent with no thrombus.. CONCLUSIONS No DVT bilateral lower extremities. Dr. Hannah Allen DO (Electronically Signed) Final Date: 02 August 2019 15:06 S
--- NOTE | 2019-08-02 10:48 | XR_ITS ---
WS: [id number] Portable AP upright chest, 08/02/2019 Clinical Data: hemoptysis Comparison: Portable chest, 07/29/2019. Findings: The diffuse opacities especially in the lower lobes have not changed. Bibasilar atelectasis is seen. These opacities could represent acute pneumonia and/or chronic alveolar lung disease. The h eart remains same. The aortic arch and descending aorta are tortuous. No pneumothorax is seen. XR/XR chest 1V portable [id number] Impression: 1. No change in bibasilar opacities. 2. Development of bibasilar atelectasis.
[2019-08-02] MEDS: FUROsemide 20 mg Tablet PO (11:41)
--- NOTE | 2019-08-02 11:51 | PC.NURSE ---
Bean removed Bean removed per order, 10ml removed from balloon, pt tolerated well.
--- NOTE | 2019-08-02 13:45 | P.PN_ITS ---
Subjective Subjective: Interval history: José coughed up a little bit of blood this morning. He reports his breathing is still stable. No chest pain. Medications: Reviewed: Yes Vitals/I&O/Wt Last Vital Signs Temp 98.9 F 08/02/19 11:32 Pulse 100 08/02/19 11:32 Resp 18 08/02/19 11:32 BP 108/67 08/02/19 11:34 Pulse Ox 96 08/02/19 11:32 08/01/19 08/02/19 08/02/19 22:59 06:59 14:59 Intake Total 800 / 1250 50 / 1300 50 / 50 Output Total 1800 / 3800 Balance 800 / -750 -1750 / -2500 50 / 50 Weight last 48 hrs Weight 57.878 kg Physical Exam Narrative: EXAM NARRATIVE: General exam. Mild respiratory distress noted Cardiovascular regular rate and rhythm Lungs diminished breath sounds bilaterally but no wheezing Abdomen is soft, positive bowel sounds Extremities no cyanosis clubbing or edema Data : 08/02/19 04:35 08/02/19 04:35 A&P Assessment and plan (1) ARDS (adult respiratory distress syndrome): Presumably secondary to influenza, he is influenza A positive. Continue Tamiflu. Continue high flow oxygen. Wean as tolerated. He is down to 70%. Continue pulmonary toilet for COPD exacerbation Continue oral prednisone at 40 mg a day. Lasix 20 mg p.o. daily Status: Acute Code(s): J80 - Acute respiratory distress syndrome (2) Diastolic CHF: Lasix 20 mg p.o. daily Status: Acute Code(s): I50.30 - Unspecified diastolic (congestive) heart failure (3) Bilateral pneumonia: Continue linezolid, Zosyn currently Associated with acute hypoxic respiratory failure Some hemoptysis today. Recent CTA negative. Place SCDs. Check venous duplex lower extremities. Discontinue Lovenox. Wean oxygen as tolerated. Status: Acute Qualifiers: Lung location: lower lobe of lung Pneumonia type: due to unspecified organism Qualified Code(s): J18.9 - Pneumonia, unspecified organism Code(s): J18.9 - Pneumonia, unspecified organism (4) Sepsis: Antibiotics as above Status: Acute Qualifiers: Acute respiratory failure type: with hypoxia Sepsis acute organ dysfunction status: with acute organ dysfunction Sepsis type: sepsis due to unspecified organism Severe sepsis acute organ dysfunction type: acute respira tory failure Severe sepsis shock status: without septic shock Qualified Code(s): A41.9 - Sepsis, unspecified organism; R65.20 - Severe sepsis without septic shock; J96.01 - Acute respiratory failure with hypoxia Code(s): A41.9 - Sepsis, unspecified organism (5) COPD (chronic obstructive pulmonary disease): Very slow improvement. Status: Acute Code(s): J44.9 - Chronic obstructive pulmonary disease, unspecified Additional A&P Information Transaminitis, improved Son name is Kobe Patel [phone], updated, all questions were answered to their satisfaction, GI prophylaxis: Protonix Attestations Medical Necessity Statement*: Needs continued hospitalization for close monitoring secondary to ARDS requiring high flow oxygen and significant weakness requiring rehabilitation. 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
[2019-08-02] MEDS: piperacillin-tazobactam 3.375 GM in sodium chloride 0.9% (plus) 100 ML IV (18:02)
[2019-08-03] VITALS (16 sets, daily range): BP systolic 116–141; BP diastolic 66–79; PULSE 84–104; RESP 15–24; TEMP 37.1–37.4; O2SAT 88–98
[2019-08-03] MEDS: piperacillin-tazobactam 3.375 GM in sodium chloride 0.9% (plus) 100 ML IV ×3 (02:16→18:53)
[2019-08-03] MEDS: ipratropium-albuterol 3 mL Neb INHALATION ×6 (03:32→23:31)
[2019-08-03] MEDS: budesonide 0.5 mg/2 mL Neb INHALATION ×2 (08:12→20:02)
[2019-08-03] MEDS: FUROsemide 20 mg Tablet PO (09:37)
[2019-08-03] MEDS: linezolid premix 600 MG/300 ML PREMIX 300 MG IV (09:37)
[2019-08-03] MEDS: oseltamivir phosphate 75 mg Capsule PO ×2 (09:37→18:52)
[2019-08-03] MEDS: predniSONE 20 mg Tablet 40 MG PO (09:37)
[2019-08-03] MEDS: pantoprazole 40 mg SDV IVP (09:40)
--- NOTE | 2019-08-03 13:04 | P.PN_ITS ---
Subjective Subjective: Interval history: José reports he feels about the same as yesterday. Short of breath with exertion Medications: Reviewed: Yes Vitals/I&O/Wt Last Vital Signs Temp 99.4 F 08/03/19 11:18 Pulse 104 H 08/03/19 11:50 Resp 16 08/03/19 11:50 BP 141/79 08/03/19 11:18 Pulse Ox 90 08/03/19 11:50 08/02/19 08/03/19 08/03/19 22:59 06:59 14:59 Intake Total 400 / 990 100 / 1090 Output Total 600 / 600 750 / 1350 Balance -200 / 390 -650 / -260 Weight last 48 hrs Weight 57.878 kg Physical Exam Narrative: EXAM NARRATIVE: General exam. Mild respiratory distress noted Cardiovascular regular rate and rhythm Lungs diminished breath sounds bilaterally but no wheezing Abdomen is soft, positive bowel sounds Extremities no cyanosis clubbing or edema Data : 08/02/19 04:35 08/02/19 04:35 A&P Assessment and plan (1) ARDS (adult respiratory distress syndrome): Presumably secondary to influenza, he is influenza A positive. Continue Tamiflu. Continue high flow oxygen. Wean as tolerated. He is now down to 40% Continue pulmonary toilet for COPD exacerbation Discontinue prednisone today Lasix 20 mg p.o. daily Status: Acute Code(s): J80 - Acute respiratory distress syndrome (2) Diastolic CHF: Lasix 20 mg p.o. daily Status: Acute Code(s): I50.30 - Unspecified diastolic (congestive) heart failure (3) Bilateral pneumonia: Continue Zosyn. Discontinue linezolid today. Associated with acute hypoxic respiratory failure No further hemoptysis. Recent CTA negative. Place SCDs. Venous duplex negative. Discontinue Lovenox. Wean oxygen as tolerated. Status: Acute Qualifiers: Lung location: lower lobe of lung Pneumonia type: due to unspecified organism Qualified Code(s): J18.9 - Pneumonia, unspecified organism Code(s): J18.9 - Pneumonia, unspecified organism (4) Sepsis: Antibiotics as above. Discontinue linezolid today. Status: Acute Qualifiers: Acute respiratory failure type: with hypoxia Sepsis acute organ dysfunction status: with acute organ dysfunction Sepsis type: sepsis due to unspecified organism Severe sepsis acute organ dysfunction type: acute respiratory failure Severe sepsis shock status: without septic shock Qualified Code(s): A41.9 - Sepsis, unspecified organism; R65.20 - Severe sepsis without septic shock; J96.01 - Acute respiratory failure with hypoxia Code(s): A41.9 - Sepsis, unspecified organism (5) COPD (chronic obstructive pulmonary disease): Very slow improvement. Status: Acute Code(s): J44.9 - Chronic obstructive pulmonary disease, unspecified Additional A&P Information Transaminitis, improved Son name is Kobe Patel [phone], updated, all questions were answered to their satisfaction, GI prophylaxis: Protonix Attestations Medical Necessity Statement*: Needs continued hospital stay, for IV antibiotics secondary to pneumonia. 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
[2019-08-03] MEDS: LORazepam 0.5 mg Tablet PO (18:52)
[2019-08-04] VITALS (21 sets, daily range): BP systolic 106–128; BP diastolic 62–70; PULSE 94–117; RESP 16–30; TEMP 36.8–38.8; O2SAT 84–97
[2019-08-04] MEDS: ondansetron 2 mg/ML SDV 2 mL 4 MG IVP (00:41)
[2019-08-04] MEDS: piperacillin-tazobactam 3.375 GM in sodium chloride 0.9% (plus) 100 ML IV ×3 (00:59→23:20)
[2019-08-04] MEDS: ipratropium-albuterol 3 mL Neb INHALATION ×6 (03:41→23:44)
[2019-08-04 06:28] LABS: Basophils % 0.1 %; Hematocrit 34.9 % (42.0-52.0); Hemoglobin 11.2 g/dL (11.7-16.6); Lymphocytes # 0.9 10^3/uL (0.8-4.8); Lymphocytes % 5.4 %; Mean Corpuscular HGB Conc 32.1 g/dL (30.0-36.0); Mean Corpuscular Hemoglobin 30.4 pg (28.0-34.0); Mean Corpuscular Volume 94.6 fL (80-94); Mean Platelet Volume 9.9 fL (7.4-10.4); Monocytes # 1.2 10^3/uL (0.2-0.9); Monocytes % 7.1 %; Neutrophils % 86.9 %; Nucleated Red Blood Cells % 0 %; Platelet Count 223 10^3/cmm (130-400); Red Blood Count 3.69 10^6/uL (4.1-5.3); Red Cell Distribution Width 13.4 % (12.1-15.1); White Blood Count 17.2 10^3/uL (4.0-10.0)
[2019-08-04 06:46] LABS: Anion Gap 11.6 (5-19); Blood Urea Nitrogen 17 mg/dL (8-23); Calcium 8.1 mg/dL (8.5-10.5); Carbon Dioxide 26 mmol/L (22-29); Chloride 105 mmol/L (98-107); Glucose 114 mg/dL (65-115); Osmolality Calculated 285 mOsm/kg (285-295); Potassium 3.6 mmol/L (3.5-5.1); Sodium 139 mmol/L (136-145)
[2019-08-04] MEDS: budesonide 0.5 mg/2 mL Neb INHALATION ×2 (08:09→20:20)
[2019-08-04] MEDS: pantoprazole 40 mg SDV IVP (10:22)
[2019-08-04] MEDS: FUROsemide 20 mg Tablet PO (10:33)
[2019-08-04] MEDS: oseltamivir phosphate 75 mg Capsule PO ×2 (10:33→18:41)
--- NOTE | 2019-08-04 12:24 | PM.PN ---
Subjective Subjective: Interval history: José reports he feels a little bit better. He denies being symptomatic when his oxygen gets low with therapy. Medications: Reviewed: Yes Vitals/I&O/Wt Last Vital Signs Temp 100.3 F H 08/04/19 10:58 Pulse 108 H 08/04/19 11:50 Resp 30 H 08/04/19 11:50 BP 117/62 08/04/19 10:58 Pulse Ox 88 L 08/04/19 11:50 08/03/19 08/04/19 08/04/19 22:59 06:59 14:59 Intake Total 100 / 300 120 / 120 Output Total 500 / 500 700 / 1200 Balance -400 / -200 -700 / -900 120 / 120 Physical Exam Narrative: EXAM NARRATIVE: General exam. Mild respiratory distress noted Cardiovascular regular rate and rhythm Lungs diminished breath sounds bilaterally but no wheezing Abdomen is soft, positive bowel sounds Extremities no cyanosis clubbing or edema Data : 08/04/19 05:20 08/04/19 05:20 Micro: Microbiology 08/04/19 00:37 C.difficile Toxin B Gene (PCR) - Final Stool A&P Assessment and plan (1) ARDS (adult respiratory distress syndrome): Presumably secondary to influenza, he is influenza A positive. Continue Tamiflu to complete 7 days total Continue high flow oxygen. Wean as tolerated. He is now down to 40% Continue pulmonary toilet for COPD exacerbation Prednisone has been discontinued Continue Lasix 20 mg daily Status: Acute Code(s): J80 - Acute respiratory distress syndrome (2) Diastolic CHF: Lasix 20 mg p.o. daily Status: Acute Code(s): I50.30 - Unspecified diastolic (congestive) heart failure (3) Bilateral pneumonia: Consider discontinuation of Zosyn tomorrow. After that time he will of had 10 complete days. Associated with acute hypoxic respiratory failure No further hemoptysis. Recent CTA negative. Place SCDs. Venous duplex negative. Discontinue Lovenox. Wean oxygen as tolerated. Status: Acute Qualifiers: Lung location: lower lobe of lung Pneumonia type: due to unspecified organism Qualified Code(s): J18.9 - Pneumonia, unspecified organism Code(s): J18.9 - Pneumonia, unspecified organism (4) Sepsis: Antibiotics as above. Discontinue linezolid today. Status: Acute Qualifiers: Acute respiratory failure type: with hypoxia Sepsis acute organ dysfunction status: with acute organ dysfunction Sepsis type: sepsis due to unspecified organism Severe sepsis acute organ dysfunction type: acute respiratory failure Severe sepsis shock status: without septic shock Qualified Code(s): A41.9 - Sepsis, unspecified organism; R65.20 - Severe sepsis without septic shock; J96.01 - Acute respiratory failure with hypoxia Code(s): A41.9 - Sepsis, unspecified organism (5) COPD (chronic obstructive pulmonary disease): Very slow improvement. Status: Acute Code(s): J44.9 - Chronic obstructive pulmonary disease, unspecified Additional A&P Information Transaminitis, improved Son name is Kobe Patel [phone], updated, all questions were answered to their satisfaction, GI prophylaxis: Protonix Attestations Medical Necessity Statement*: Needs continued hospitalization for pulmonary toilet, support with oxygen as this patient recovers from ARDS. Coding Level of Care Code Acute Component Prep Operator for [facility] 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
[2019-08-05] VITALS (24 sets, daily range): BP systolic 112–132; BP diastolic 64–78; PULSE 96–114; RESP 16–26; TEMP 36.5–38; O2SAT 84–96
--- NOTE | 2019-08-05 01:00 | PC.NURSE ---
pt status this nurse was called into room, pt refusing to wear high flow nasal canula. pt's O2 sat is 79% on room air. son present at bedside with ancillary staff. RT called to look at pt. pt educated that he needs to wear his NC due to his oxygen saturation level. RN placed pt back on high flow NC, RT increased oxygen percentage to 60% high flow, pt's O2 sat is 88% and slowly rising.
[2019-08-05] MEDS: ipratropium-albuterol 3 mL Neb INHALATION ×6 (03:03→23:39)
[2019-08-05] MEDS: piperacillin-tazobactam 3.375 GM in sodium chloride 0.9% (plus) 100 ML IV ×2 (06:27→20:12)
[2019-08-05] MEDS: budesonide 0.5 mg/2 mL Neb INHALATION ×2 (08:16→20:51)
[2019-08-05] MEDS: FUROsemide 20 mg Tablet PO (11:39)
[2019-08-05] MEDS: oseltamivir phosphate 75 mg Capsule PO ×2 (11:39→19:29)
[2019-08-05] MEDS: pantoprazole DR 40 mg Tablet PO (11:39)
--- NOTE | 2019-08-05 13:16 | PM.PN ---
Subjective Subjective: Interval history: José reports he is about the same. No specific concerns. Medications: Reviewed: Yes Vitals/I&O/Wt Last Vital Signs Temp 97.7 F 08/05/19 12:21 Pulse 98 08/05/19 11:25 Resp 20 H 08/05/19 11:25 BP 124/74 08/05/19 12:21 Pulse Ox 90 08/05/19 12:00 08/04/19 08/05/19 08/05/19 22:59 06:59 14:59 Intake Total 100 / 340 100 / 440 Output Total 450 / 450 500 / 500 Balance 100 / 340 -350 / -10 -500 / -500 Physical Exam Narrative: EXAM NARRATIVE: General exam. Mild respiratory distress noted Cardiovascular regular rate and rhythm Lungs diminished breath sounds bilaterally but no wheezing Abdomen is soft, positive bowel sounds Extremities no cyanosis clubbing or edema Data : 08/04/19 05:20 08/04/19 05:20 Micro: Microbiology 08/04/19 00:37 C.difficile Toxin B Gene (PCR) - Final Stool A&P Assessment and plan (1) ARDS (adult respiratory distress syndrome): Presumably secondary to influenza, he is influenza A positive. Continue Tamiflu to complete 7 days total Continue high flow oxygen. Wean as tolerated. He is now down to 40% Continue pulmonary toilet for COPD exacerbation Prednisone has been discontinued Continue Lasix 20 mg daily Status: Acute Code(s): J80 - Acute respiratory distress syndrome (2) Diastolic CHF: Lasix 20 mg p.o. daily Status: Acute Code(s): I50.30 - Unspecified diastolic (congestive) heart failure (3) Bilateral pneumonia: Was considering discontinuing Zosyn today. He has occasional hemoptysis with yellow sputum. Will continue for now. Will place on a cough suppressant.. Associated with acute hypoxic respiratory failure No further hemoptysis. Recent CTA negative. Place SCDs. Venous duplex negative. Discontinue Lovenox. Wean oxygen as tolerated. White blood cell count has drifted up. Will repeat tomorrow. Considering hemoptysis, sputum culture Status: Acute Qualifiers: Lung location: lower lobe of lung Pneumonia type: due to unspecified organism Qualified Code(s): J18.9 - Pneumonia, unspecified organism Code(s): J18.9 - Pneumonia, unspecified organism (4) Sepsis: Antibiotics as above. On Zosyn. Status: Acute Qualifiers: Acute respiratory failure type: with hypoxia Sepsis acute organ dysfunction status: with acute organ dysfunction Sepsis type: sepsis due to unspecified organism Severe sepsis acute organ dysfunction type: acute respiratory failure Severe sepsis shock status: without septic shock Qualified Code(s): A41.9 - Sepsis, unspecified organism; R65.20 - Severe sepsis without septic shock; J96.01 - Acute respiratory failure with hypoxia Code(s): A41.9 - Sepsis, unspecified organism (5) COPD (chronic obstructive pulmonary disease): Very slow improvement. 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
[2019-08-05 14:16] LABS: Procalcitonin 0.18 ng/mL (0-0.5)
--- NOTE | 2019-08-05 17:05 | XRR_ITS ---
PROCEDURE INFORMATION: Exam: XR Chest, 1 View Exam date and time: 08/05/2019 5:37 PM Age: 59 years old Clinical indication: Condition or disease; Other: F/u pneumonia; Additional info: Follow up pneumonia TECHNIQUE: Imaging protocol: XR of the chest Views: 1 view. COMPARISON: CR XR chest 1V portable [id number] 08/02/2019 12:31 PM FINDINGS: Lungs: Increasing bibasilar airspace opacities are noted compared to the prior exam concerning for increasing pneumonic infiltrates. There is severe hyperinflation/COPD with fibrosis and scarring. No significant cephalization of flow or definite CHF. Pleural space: There is mild pleural thickening or trace pleural effusions. No pneumothorax. Heart/Mediastinum: Unremarkable. No cardiomegaly. Bones/joints: No acute abnormality. XR/XR chest 1V portable [id number] IMPRESSION: Increasing bibasilar airspace opacities are noted compared to the prior exam concerning for increasing pneumonic infiltrates.
[2019-08-05] MEDS: fluconazole premix 400 MG/200 ML PIGGYBACK 200 MG IV (20:14)
[2019-08-05] MEDS: linezolid 600 mg Tablet PO (20:14)
[2019-08-06] VITALS (18 sets, daily range): BP systolic 111–118; BP diastolic 64–73; PULSE 88–105; RESP 18–28; TEMP 37.1–37.6; O2SAT 89–92
[2019-08-06] MEDS: ipratropium-albuterol 3 mL Neb INHALATION ×6 (03:18→23:54)
[2019-08-06] MEDS: piperacillin-tazobactam 3.375 GM in sodium chloride 0.9% (plus) 100 ML IV ×3 (04:28→21:01)
[2019-08-06 05:46] LABS: Basophils % 0.1 %; Eosinophils % 0.2 %; Hematocrit 34.6 % (42.0-52.0); Hemoglobin 11.4 g/dL (11.7-16.6); Lymphocytes # 0.9 10^3/uL (0.8-4.8); Lymphocytes % 5.8 %; Mean Corpuscular HGB Conc 32.9 g/dL (30.0-36.0); Mean Corpuscular Hemoglobin 31.7 pg (28.0-34.0); Mean Corpuscular Volume 96.1 fL (80-94); Monocytes % 6.2 %; Neutrophils % 87.1 %; Nucleated Red Blood Cells % 0 %; Platelet Count 194 10^3/cmm (130-400); Red Cell Distribution Width 13.2 % (12.1-15.1)
[2019-08-06 06:04] LABS: Anion Gap 12.8 (5-19); Blood Urea Nitrogen 13 mg/dL (8-23); Calcium 7.8 mg/dL (8.5-10.5); Carbon Dioxide 25 mmol/L (22-29); Chloride 103 mmol/L (98-107); Glucose 114 mg/dL (65-115); Osmolality Calculated 281 mOsm/kg (285-295); Potassium 3.8 mmol/L (3.5-5.1); Sodium 137 mmol/L (136-145)
[2019-08-06 06:32] LABS: Bacteria Urine 1+; Bilirubin Urine Neg (NEGATIVE); Blood Urine Neg (Negative); Glucose Urine UA Norm (Normal); Ketones Urine 1+ (Negative); Leukocyte Esterase Urine Negative (Negative); Nitrate Urine Negative (Negative); Protein Urine Neg (Negative); RBC Urine 0-4 /hpf (0-2); Specific Gravity, Urine 1.015 (1.005-1.030); Squamous Epithelial Cell Urine 0-4 (0-5); Urine Appearance Clear (CLEAR); Urine Color Yellow (Yellow); Urobilinogen Urine Norm (Negative); WBC Urine 0-4 /hpf (0-5); pH Urine 6.5 (5-7)
[2019-08-06] MEDS: budesonide 0.5 mg/2 mL Neb INHALATION ×2 (08:41→20:40)
[2019-08-06] MEDS: oseltamivir phosphate 75 mg Capsule PO ×2 (08:44→18:04)
[2019-08-06] MEDS: pantoprazole DR 40 mg Tablet PO (08:44)
[2019-08-06] MEDS: linezolid 600 mg Tablet PO ×2 (08:44→21:03)
[2019-08-06] MEDS: FUROsemide 20 mg Tablet PO (08:45)
--- NOTE | 2019-08-06 12:35 | PM.PN ---
Subjective Subjective: Interval history: Patient states that he is a bit short of breath this morning, continues to have a cough, no fevers, no chills, no nausea, no vomiting, continues to have a poor appetite, still on high flow oxygen, weaning, is frustrated about his slow clinical progress Vitals/I&O/Wt Last Vital Signs Temp 98.7 F 08/06/19 12:00 Pulse 88 08/06/19 12:12 Resp 22 H 08/06/19 12:12 BP 116/71 08/06/19 12:00 Pulse Ox 90 08/06/19 12:12 08/05/19 08/06/19 08/06/19 22:59 06:59 14:59 Intake Total 200 / 540 100 / 640 100 / 100 Output Total 600 / 1600 Balance 200 / -460 -500 / -960 100 / 100 Physical Exam Const: COMMON NORMALS: no apparent distress and oriented x3 HENMT: COMMON NORMALS: normocephalic HEAD & SCALP: normocephalic Neck/C-Spine: COMMON NORMALS: no JVD Resp: COMMON NORMALS: normal respiratory effort, no retractions, no use of accessory muscles and clear to auscultation bilaterally AUSCULTATION: clear to auscultation bilaterally Cardio: COMMON NORMALS: no JVD, regular rate, regular rhythm, S1 normal heart sound and S2 normal heart sound RATE: regular rate RHYTHM: regular rhythm HEART SOUNDS: S1 normal and S2 normal GI: COMMON NORMALS: normal to inspection, nondistended, normoactive bowel sounds, soft to palpation, non-tender, no hepatosplenomegaly, no masses and no bruits PALPATION: Yes soft and Yes no hepatosplenomegaly Extremity: COMMON NORMALS: normal capillary refill, no clubbing, cyanosis or edema, no calf tenderness and no pedal edema Neuro: COMMON NORMALS: oriented x3 Psych: COMMON NORMALS: mental status grossly normal Data : 08/06/19 05:33 08/06/19 05:33 Micro: Microbiology 08/06/19 01:09 Blood Culture - Preliminary Blood SPECIMEN COLLECTED 08/06/19 01:17 Blood Culture - Preliminary Blood SPECIMEN COLLECTED 08/05/19 Unknown Gram Stain - Final Sputum - Expectorated Sputum A&P Assessment and plan (1) ARDS (adult respiratory distress syndrome): Presumably secondary to influenza, he is influenza A positive. Continue Tamiflu to complete 7 days total Continue Zosyn and Zyvox On flucanazole Continue high flow oxygen. Wean as tolerated. He is now down to 40% Continue pulmonary toilet for COPD exacerbation Prednisone has been discontinued Continue Lasix 20 mg daily Status: Acute Code(s): J80 - Acute respiratory distress syndrome (2) Diastolic CHF: Lasix 20 mg p.o. daily Status: Acute Code(s): I50.30 - Unspecified diastolic (congestive) heart failure (3) Bilateral pneumonia: -Continue Zyvox and Zosyn -Continue flucanazole -Respiratory cultures unremarkable, blood cultures unremarkable -We will provide antitussive agents to help with hemoptysis Status: Acute Qualifiers: Lung location: lower lobe of lung Pneumonia type: due to unspecified organism Qualified Code(s): J18.9 - Pneumonia, unspecified organism Code(s): J18.9 - Pneumonia, unspecified organism (4) Sepsis: Antibiotics as above. Status: Acute Qualifiers: Acute respiratory failure type: with hypoxia Sepsis acute organ dysfunction status: with acute organ dysfunction Sepsis type: sepsis due to unspecified organism Severe sepsis acute organ dysfunction type: acute respiratory failure Severe sepsis shock status: without septic shock Qualified Code(s): A41.9 - Sepsis, unspecified organism; R65.20 - Severe sepsis without septic shock; J96.01 - Acute respiratory failure with hypoxia Code(s): A41.9 - Sepsis, unspecified organism (5) COPD (chronic obstructive pulmonary disease): Very slow improvement. 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
--- NOTE | 2019-08-06 15:13 | PC.NURSE ---
Patient stood 10 minutes at bedside attempting to void. Patient then sat on the bedside commode for another 10 minutes and was still unable to void. Patient states, I do not feel like I need to go. I play with my self and try and think about it and nothing happens. Bladder scan shows over [address] Murrieta notified.
[2019-08-06] MEDS: fluconazole premix 400 MG/200 ML PIGGYBACK 200 MG IV (21:02)
[2019-08-07] VITALS (17 sets, daily range): BP systolic 106–128; BP diastolic 62–72; PULSE 79–112; RESP 16–24; TEMP -13.1–37.5; O2SAT 88–93
[2019-08-07] MEDS: ipratropium-albuterol 3 mL Neb INHALATION ×5 (03:30→23:25)
[2019-08-07] MEDS: piperacillin-tazobactam 3.375 GM in sodium chloride 0.9% (plus) 100 ML IV (04:33)
[2019-08-07 06:47] LABS: Basophils % 0.1 %; Eosinophils # 0.1 10^3/uL (0.0-0.8); Eosinophils % 0.5 %; Hematocrit 34.2 % (42.0-52.0); Lymphocytes # 0.7 10^3/uL (0.8-4.8); Lymphocytes % 4.7 %; Mean Corpuscular HGB Conc 32.2 g/dL (30.0-36.0); Mean Corpuscular Hemoglobin 30.6 pg (28.0-34.0); Mean Platelet Volume 10.2 fL (7.4-10.4); Monocytes # 0.8 10^3/uL (0.2-0.9); Monocytes % 5.5 %; Neutrophils # 13.3 10^3/uL (1.8-7.7); Neutrophils % 88.7 %; Nucleated Red Blood Cells % 0 %; Platelet Count 228 10^3/cmm (130-400); Red Cell Distribution Width 13.2 % (12.1-15.1)
[2019-08-07 06:59] LABS: Alanine Aminotransferase 62 U/L (0-41); Albumin Level 2.1 g/dL (3.5-5.2); Alkaline Phosphatase 108 IU/L (40-130); Anion Gap 12.7 (5-19); Aspartate Amino Transferase 33 U/L (0-40); Blood Urea Nitrogen 13 mg/dL (8-23); Calcium 7.9 mg/dL (8.5-10.5); Carbon Dioxide 23 mmol/L (22-29); Chloride 102 mmol/L (98-107); Globulin 3.4 g/dL (1.3-4.6); Glucose 130 mg/dL (65-115); Magnesium 2.2 mg/dL (1.7-2.3); Osmolality Calculated 276 mOsm/kg (285-295); Phosphorus 2.4 mg/dL (2.5-4.5); Potassium 3.7 mmol/L (3.5-5.1); Sodium 134 mmol/L (136-145); Total Bilirubin 0.5 mg/dL (0.15-1.2); Total Protein 5.5 g/dL (6.6-8.7)
[2019-08-07] MEDS: budesonide 0.5 mg/2 mL Neb INHALATION ×2 (07:55→19:59)
[2019-08-07] MEDS: pantoprazole DR 40 mg Tablet PO (08:53)
[2019-08-07] MEDS: oseltamivir phosphate 75 mg Capsule PO (08:53)
[2019-08-07] MEDS: FUROsemide 20 mg Tablet PO (08:53)
[2019-08-07] MEDS: linezolid 600 mg Tablet PO (08:53)
--- NOTE | 2019-08-07 14:59 | PC.NURSE ---
Returned a call to Victorina patient's sister at time. Updated Victorina that patient did eat some breakfast and has been seen by the doctor and he changed some antibiotic's to pills. Updated Victorina that the hospital is limiting visitors to one at a time per patient. Victorina verbalized understanding.
--- NOTE | 2019-08-07 16:48 | PM.PN ---
Subjective Subjective: Interval history: Patient feels little bit better today, has a little bit of a improved appetite remains afebrile, still on high flow 30% 15 L Vitals/I&O/Wt Last Vital Signs Temp 98.3 F 08/07/19 16:00 Pulse 108 H 08/07/19 16:00 Resp 17 08/07/19 16:00 BP 126/71 08/07/19 16:00 Pulse Ox 89 L 08/07/19 16:00 08/07/19 08/07/19 08/07/19 06:59 14:59 22:59 Intake Total 100 / 460 340 / 340 Balance 100 / 260 340 / 340 Physical Exam Const: COMMON NORMALS: no apparent distress and oriented x3 HENMT: COMMON NORMALS: normocephalic HEAD & SCALP: normocephalic Neck/C-Spine: COMMON NORMALS: no JVD Resp: COMMON NORMALS: normal respiratory effort, no retractions, no use of accessory muscles and clear to auscultation bilaterally AUSCULTATION: clear to auscultation bilaterally Cardio: COMMON NORMALS: no JVD, regular rate, regular rhythm, S1 normal heart sound and S2 normal heart sound RATE: regular rate RHYTHM: regular rhythm HEART SOUNDS: S1 normal and S2 normal GI: COMMON NORMALS: normal to inspection, nondistended, normoactive bowel sounds, soft to palpation, non-tender, no hepatosplenomegaly, no masses and no bruits PALPATION: Yes soft and Yes no hepatosplenomegaly Extremity: COMMON NORMALS: normal capillary refill, no clubbing, cyanosis or edema, no calf tenderness and no pedal edema Neuro: COMMON NORMALS: oriented x3 Psych: COMMON NORMALS: mental status grossly normal Urinary Catheter Management^: Bean: Cath Placed During This Visit: yes Reason for Continuing Indwelling Catheter: Acute Urinary Retention or Obstruction Urinary Catheter Date of Insertion: 08/06/19 Urinary Catheter Time of Insertion: 16:15 Data : 08/07/19 06:27 08/07/19 06:27 Micro: Microbiology 08/05/19 Unknown Gram Stain - Final Sputum - Expectorated Sputum Sputum Culture - Preliminary Yeast species 08/06/19 01:09 Blood Culture - Preliminary Blood NEGATIVE TO DATE 08/06/19 01:17 Blood Culture - Preliminary Blood NEGATIVE TO DATE A&P Assessment and plan (1) ARDS (adult respiratory distress syndrome): Presumably secondary to influenza, he is influenza A positive. Finished Tamiflu course De-escalated to Levaquin On oral fluconazole Continue high flow oxygen. Wean as tolerated. He is now down to 40% Continue pulmonary toilet for COPD exacerbation Prednisone has been discontinued Continue Lasix 20 mg daily Status: Acute Code(s): J80 - Acute respiratory distress syndrome (2) Diastolic CHF: Lasix 20 mg p.o. daily Status: Acute Code(s): I50.30 - Unspecified diastolic (congestive) heart failure (3) Bilateral pneumonia: -On Levaquin -Continue flucanazole -Respiratory cultures unremarkable, blood cultures unremarkable -We will provide antitussive agents to help with hemoptysis Status: Acute Qualifiers: Lung location: lower lobe of lung Pneumonia type: due to unspecified organism Qualified Code(s): J18.9 - Pneumonia, unspecified organism Code(s): J18.9 - Pneumonia, unspecified organism (4) Sepsis: Antibiotics as above. Status: Acute Qualifiers: Acute respiratory failure type: with hypoxia Sepsis acute organ dysfunction status: with acute organ dysfunction Sepsis type: sepsis due to unspecified organism Severe sepsis acute organ dysfunction type: acute respiratory failure Severe sepsis shock status: without septic shock Qualified Code(s): A41.9 - Sepsis, unspecified organism; R65.20 - Severe sepsis without septic shock; J96.01 - Acute respiratory failure with hypoxia Code(s): A41.9 - Sepsis, unspecified organism (5) COPD (chronic obstructive pulmonary disease): Very slow improvement. Status: Acute Code(s): J44.9 - Chronic obstructive pulmonary disease, unspecified Additional A&P Information Transaminitis, improved Son name is Kobe Patel [phone], updated, all questions were answered to their satisfaction, GI prophylaxis: Protonix Attestations Medical Necessity Statement*: Patient requires hospitalization for ards Coding Level of Care Code Acute Urgent Care Physician for anayeli [facility] Diagnoses ARDS (adult respiratory distress syndrome) J80 Diastolic CHF I50.30 Bilateral pneumonia J18.9 Lung location: lower lobe of lung Pneumonia type: due to unspecified organism Sepsis A41.9; R65.20; J96.01 Acute respiratory failure type: with hypoxia Sepsis acute organ dysfunction status: with acute organ dysfunction Sepsis type: sepsis due to unspecified organism Severe sepsis acute organ dysfunction type: acute respiratory failure Severe sepsis shock status: without septic shock COPD (chronic obstructive pulmonary disease) J44.9
[2019-08-08] VITALS (20 sets, daily range): BP systolic 111–125; BP diastolic 60–77; PULSE 92–194; RESP 18–30; TEMP 37.1–38.1; O2SAT 71–98
[2019-08-08] MEDS: ipratropium-albuterol 3 mL Neb INHALATION ×6 (03:22→23:56)
[2019-08-08 05:47] LABS: Basophils % 0.1 %; Eosinophils # 0.1 10^3/uL (0.0-0.8); Eosinophils % 0.4 %; Hematocrit 38.2 % (42.0-52.0); Hemoglobin 12.6 g/dL (11.7-16.6); Lymphocytes # 0.6 10^3/uL (0.8-4.8); Lymphocytes % 4.2 %; Mean Corpuscular Hemoglobin 31.6 pg (28.0-34.0); Mean Corpuscular Volume 95.7 fL (80-94); Mean Platelet Volume 9.9 fL (7.4-10.4); Monocytes # 0.7 10^3/uL (0.2-0.9); Monocytes % 4.7 %; Neutrophils # 13.6 10^3/uL (1.8-7.7); Neutrophils % 89.9 %; Nucleated Red Blood Cells % 0 %; Platelet Count 240 10^3/cmm (130-400); Red Blood Count 3.99 10^6/uL (4.1-5.3); Red Cell Distribution Width 13.4 % (12.1-15.1); White Blood Count 15.2 10^3/uL (4.0-10.0)
[2019-08-08] MEDS: levoFLOXacin 750 mg Tablet PO (05:51)
[2019-08-08 06:05] LABS: Alanine Aminotransferase 77 U/L (0-41); Albumin Level 2.3 g/dL (3.5-5.2); Alkaline Phosphatase 141 IU/L (40-130); Anion Gap 10.2 (5-19); Aspartate Amino Transferase 49 U/L (0-40); Blood Urea Nitrogen 13 mg/dL (8-23); Calcium 8.1 mg/dL (8.5-10.5); Carbon Dioxide 27 mmol/L (22-29); Chloride 103 mmol/L (98-107); Globulin 4.1 g/dL (1.3-4.6); Glomerular Filtration Rate 114.6 mL/min (90-130); Glucose 143 mg/dL (65-115); Magnesium 2.2 mg/dL (1.7-2.3); Osmolality Calculated 281 mOsm/kg (285-295); Phosphorus 2.4 mg/dL (2.5-4.5); Potassium 4.2 mmol/L (3.5-5.1); Sodium 136 mmol/L (136-145); Total Bilirubin 0.6 mg/dL (0.15-1.2); Total Protein 6.4 g/dL (6.6-8.7)
[2019-08-08] MEDS: budesonide 0.5 mg/2 mL Neb INHALATION ×2 (07:33→20:00)
[2019-08-08] MEDS: FUROsemide 20 mg Tablet PO (08:26)
[2019-08-08] MEDS: fluconazole 100 mg Tablet 400 MG PO (08:26)
[2019-08-08] MEDS: pantoprazole DR 40 mg Tablet PO (08:26)
[2019-08-08] MEDS: acetaminophen-codeine 120-12 mg/5 mL UDC 2.5 ML PO (16:12)
--- NOTE | 2019-08-08 17:47 | P.PN_ITS ---
Subjective Subjective: Interval history: Patient has had intermittent fevers, continues to have minimal hemoptysis, associate with coughing, but states that he is overall getting better Vitals/I&O/Wt Last Vital Signs Temp 98.7 F 08/08/19 15:49 Pulse 92 08/08/19 15:49 Resp 19 H 08/08/19 15:49 BP 125/67 08/08/19 15:49 Pulse Ox 96 08/08/19 15:49 08/08/19 08/08/19 08/08/19 06:59 14:59 22:59 Intake Total 490 / 490 240 / 730 Output Total 1020 / 1270 400 / 400 Balance -1020 / -870 490 / 490 -160 / 330 Weight last 48 hrs Weight 57.408 kg Physical Exam Const: COMMON NORMALS: no apparent distress and oriented x3 HENMT: COMMON NORMALS: normocephalic HEAD & SCALP: normocephalic Neck/C-Spine: COMMON NORMALS: no JVD Resp: COMMON NORMALS: normal respiratory effort, no retractions and no use of accessory muscles AUSCULTATION: wheezes Cardio: COMMON NORMALS: no JVD, regular rate, regular rhythm, S1 normal heart sound and S2 normal heart sound RATE: regular rate RHYTHM: regular rhythm HEART SOUNDS: S1 normal and S2 normal GI: COMMON NORMALS: normal to inspection, nondistended, normoactive bowel sounds, soft to palpation, non-tender, no hepatosplenomegaly, no masses and no bruits PALPATION: Yes soft and Yes no hepatosplenomegaly Extremity: COMMON NORMALS: normal capillary refill, no clubbing, cyanosis or edema, no calf tenderness and no pedal edema Neuro: COMMON NORMALS: oriented x3 Psych: COMMON NORMALS: mental status grossly normal Urinary Catheter Management^: Bean: Cath Placed During This Visit: yes Reason for Continuing Indwelling Catheter: Acute Urinary Retention or Obstruction Urinary Catheter Date of Insertion: 08/06/19 Urinary Catheter Time of Insertion: 16:15 Data : 08/08/19 05:38 08/08/19 05:38 A&P Assessment and plan (1) ARDS (adult respiratory distress syndrome): Secondary to pneumonia and influenza a I will continue Tamiflu for prolonged course given his persistent fever De-escalated to Levaquin On oral fluconazole Continue high flow oxygen. Wean as tolerated. He is now down to 30% Continue pulmonary toilet for COPD exacerbation Prednisone has been discontinued for now Continue Lasix 20 mg daily Given his persistent hemoptysis, and immobility, will order an CT angios to rule out pulmonary embolism Status: Acute Code(s): J80 - Acute respiratory distress syndrome (2) Diastolic CHF: Lasix 20 mg p.o. daily Status: Acute Code(s): I50.30 - Unspecified diastolic (congestive) heart failure (3) Bilateral pneumonia: -On Levaquin -Continue flucanazole -Respiratory cultures unremarkable, blood cultures unremarkable -We will provide antitussive agents to help with hemoptysis Status: Acute Qualifiers: Lung location: lower lobe of lung Pneumonia type: due to unspecified organism Qualified Code(s): J18.9 - Pneumonia, unspecified organism Code(s): J18.9 - Pneumonia, unspecified organism (4) Sepsis: Antibiotics as above. Status: Acute Qualifiers: Acute respiratory failure type: with hypoxia Sepsis acute organ dysfunction status: with acute organ dysfunction Sepsis type: sepsis due to u nspecified organism Severe sepsis acute organ dysfunction type: acute resp iratory failure Severe sepsis shock status: without septic shock Qualified Code(s): A41.9 - Sepsis, unspecified organism; R65.20 - Severe sepsis without septic shock; J96.01 - Acute respiratory failure with hypoxia Code(s): A41.9 - Sepsis, unspecified organism (5) COPD (chronic obstructive pulmonary disease): Very slow improvement. Status: Acute Code(s): J44.9 - Chronic obstructive pulmonary disease, unspecified Additional A&P Information Transaminitis, improved Son name is Kobe Patel [phone], updated, all questions were answered to their satisfaction, GI prophylaxis: Protonix Attestations Medical Necessity Statement*: Patient requires continued hospitalization due to acute respiratory distress syndrome Coding Level of Care Code Acute Cook Chief for [facility] 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
--- NOTE | 2019-08-08 17:47 | CTR_ITS ---
PROCEDURE INFORMATION: Exam: CT Angiography Chest With Contrast Exam date and time: 08/08/2019 5:59 PM Age: 59 years old Clinical indication: Shortness of breath; Additional info: R/O pe TECHNIQUE: Imaging protocol: Computed tomographic angiography of the chest with intravenous contrast. 3D rendering: MIP and/or 3D reconstructed images were created by the technologist. Total DLP: 604.58 mGy-cm Radiation optimization: All CT scans at this facility use at least one of these dose optimization techniques: automated exposure control; mA and/or kV adjustment per patient size (includes targeted exams where dose is matched to clinical indication); or iterative reconstruction. Contrast material: OMNI; Contrast volume: 95 ml; Contrast route: IV; COMPARISON: CT angio chest PE protcl [id number] 07/24/2019 10:39 PM FINDINGS: Pulmonary arteries: Normal. No pulmonary emboli. Aorta: Unremarkable. No aortic aneurysm. No aortic dissection. Lungs: Prominent somewhat severe paraseptal emphysema. Severe centrilobular emphysema. Severe anterior segment and posterior segment right upper lobe pneumonia with severe right lower lobe pneumonia with air bronchograms. Severe superior segment left lower lobe pneumonia with moderate posterior left upper lobe pneumonia and mild left lower lobe pneumonia. Pleural space: Mild bilateral pleural fluid collections. Heart: Unremarkable. No cardiomegaly. No pericardial effusion. Lymph nodes: Mild mediastinal and bilateral hilar adenopathy which is probably reactive. Bones/joints: Unremarkable. No acute fracture. Soft tissues: Unremarkable. CT/CT angio chest PE protcl [id number] IMPRESSION: 1. Prominent somewhat severe paraseptal emphysema. 2. Severe centrilobular emphysema. 3. Severe anterior segment and posterior segment right upper lobe pneumonia with severe right lower lobe pneumonia with air bronchograms. 4. Severe superior segment left lower lobe pneumonia with moderate posterior left upper lobe pneumonia and mild left lower lobe pneumonia. 5. Mild bilateral pleural fluid collections. 6. Mild mediastinal and bilateral hilar adenopathy which is probably reactive. 7. No pulmonary embolus or aortic dissection. Radiation Dose CTDIVOL = (mGy): DLP = 604.58 (mGy-cm)
[2019-08-08] MEDS: oseltamivir phosphate 75 mg Capsule PO (19:24)
[2019-08-08] MEDS: iohexol 350 mg/mL 100 mL Btl IV (20:18)
[2019-08-09] VITALS (21 sets, daily range): BP systolic 111–121; BP diastolic 66–73; PULSE 99–109; RESP 18–28; TEMP 36.7–38.3; O2SAT 82–96
[2019-08-09] MEDS: ipratropium-albuterol 3 mL Neb INHALATION ×6 (03:05→23:58)
[2019-08-09] MEDS: levoFLOXacin 750 mg Tablet PO (05:12)
[2019-08-09 05:36] LABS: Basophils % 0.1 %; Eosinophils # 0.1 10^3/uL (0.0-0.8); Eosinophils % 0.5 %; Hemoglobin 10.8 g/dL (11.7-16.6); Lymphocytes # 0.7 10^3/uL (0.8-4.8); Lymphocytes % 3.4 %; Mean Corpuscular HGB Conc 32.7 g/dL (30.0-36.0); Mean Corpuscular Hemoglobin 31.2 pg (28.0-34.0); Mean Corpuscular Volume 95.4 fL (80-94); Mean Platelet Volume 10.5 fL (7.4-10.4); Monocytes # 0.9 10^3/uL (0.2-0.9); Monocytes % 4.4 %; Neutrophils # 18.8 10^3/uL (1.8-7.7); Neutrophils % 90.9 %; Nucleated Red Blood Cells % 0 %; Platelet Count 260 10^3/cmm (130-400); Red Blood Count 3.46 10^6/uL (4.1-5.3); Red Cell Distribution Width 13.5 % (12.1-15.1); White Blood Count 20.7 10^3/uL (4.0-10.0)
[2019-08-09 06:07] LABS: Alanine Aminotransferase 57 U/L (0-41); Albumin Level 2.1 g/dL (3.5-5.2); Alkaline Phosphatase 115 IU/L (40-130); Anion Gap 15.1 (5-19); Aspartate Amino Transferase 21 U/L (0-40); Blood Urea Nitrogen 17 mg/dL (8-23); Calcium 8.5 mg/dL (8.5-10.5); Carbon Dioxide 22 mmol/L (22-29); Chloride 99 mmol/L (98-107); Globulin 3.6 g/dL (1.3-4.6); Glucose 113 mg/dL (65-115); Magnesium 2.3 mg/dL (1.7-2.3); Osmolality Calculated 271 mOsm/kg (285-295); Potassium 4.1 mmol/L (3.5-5.1); Sodium 132 mmol/L (136-145); Total Bilirubin 0.4 mg/dL (0.15-1.2); Total Protein 5.7 g/dL (6.6-8.7)
[2019-08-09] MEDS: FUROsemide 20 mg Tablet PO (07:14)
[2019-08-09] MEDS: oseltamivir phosphate 75 mg Capsule PO ×2 (07:15→18:55)
[2019-08-09] MEDS: pantoprazole DR 40 mg Tablet PO (07:15)
[2019-08-09] MEDS: fluconazole 100 mg Tablet 400 MG PO (07:15)
[2019-08-09] MEDS: budesonide 0.5 mg/2 mL Neb INHALATION ×2 (07:26→19:39)
--- NOTE | 2019-08-09 11:26 | PC.CHAP ---
Pastoral Care Encounter/Spiritual Assessment Type of Contact [] Declined preschool assistant principal visit [] Patient/Family/Request visit [] Outpatient visit [] Follow-up visit [] Physician referral [] Code/Alert [x] Routine visit [] Staff referral [] Actively dying [] Patient sleeping [] Family support [] [] Out of room [] Palliative care [] [] Receiving care in room [] Pre-surgical visit [] Trauma [] Long length of stay [] ICU visit [] Other: Relational/Emotional Strength [x] Patient feels connected with others/family/visitors/staff [] Distress [] Loneliness/isolation [] Abandonment Spirituality of Patient [x] Person of Britta [] Attends Mormon of their Britta [x] Believes in Prayer [] Reads Bible or Lutheran materials [] There are Spiritual issues to be addressed Financial Investment Manager Interventions [x] Prayer [x] Active listening [x] Non-anxious presence [x] Spiritual/emotional support [] Crisis/trauma care [x] Spiritual counseling [] Bereavement support [] Provided bereavement packet [] Provided Bible/devotional materials [] Provided toy/stuffed animal, coloring book to patient or family member [] Provided Communion [] Anointing/[place] [] Salvation [] Completed spiritual assessment [] Other: Impact on Illness or Injury [] Angry [] Fearful [] Anxious [] Often cries [] Exhaustion [] Unable to work [] Unable to attend yazidi [] Unable to walk/stand [] Unable to read [] Unable to drive [] Unable to eat/drink [] Unable to sleep [] Unable to be with family [] Patient intubated [x] Other: Patient was being visited by his sister. Time spent with patient 5 minutes
--- NOTE | 2019-08-09 12:06 | PC.RESP ---
Patient given Pulmonary Rehab/Smoking Cessation information.
--- NOTE | 2019-08-09 14:49 | PM.PN ---
Subjective Subjective: Interval history: Patient has intermittent episodes of hemoptysis, states that the Bean is bothering him, has hematuria, he was able to get up to the side of the bed, states that he is breathing a bit better, no shortness of breath Vitals/I&O/Wt Last Vital Signs Temp 99.3 F 08/09/19 11:55 Pulse 106 H 08/09/19 11:55 Resp 24 H 08/09/19 11:55 BP 114/66 08/09/19 11:55 Pulse Ox 92 08/09/19 11:55 08/08/19 08/09/19 08/09/19 22:59 06:59 14:59 Intake Total 540 / 1030 50 / 1080 240 / 240 Output Total 400 / 400 550 / 950 Balance 140 / 630 -500 / 130 240 / 240 Weight last 48 hrs Weight 57.408 kg Physical Exam Const: COMMON NORMALS: no apparent distress and oriented x3 HENMT: COMMON NORMALS: normocephalic HEAD & SCALP: normocephalic Neck/C-Spine: COMMON NORMALS: no JVD Resp: COMMON NORMALS: normal respiratory effort, no retractions, no use of accessory muscles and clear to auscultation bilaterally AUSCULTATION: clear to auscultation bilaterally Cardio: COMMON NORMALS: no JVD, regular rate, regular rhythm, S1 normal heart sound and S2 normal heart sound RATE: regular rate RHYTHM: regular rhythm HEART SOUNDS: S1 normal and S2 normal GI: COMMON NORMALS: normal to inspection, nondistended, normoactive bowel sounds, soft to palpation, non-tender, no hepatosplenomegaly, no masses and no bruits PALPATION: Yes soft and Yes no hepatosplenomegaly Extremity: COMMON NORMALS: normal capillary refill, no clubbing, cyanosis or edema, no calf tenderness and no pedal edema Neuro: COMMON NORMALS: oriented x3 Psych: COMMON NORMALS: mental status grossly normal Urinary Catheter Management^: Bean: Cath Placed During This Visit: yes Reason for Continuing Indwelling Catheter: Accurate Measurement of Urinary Output in Critically Ill Patients Urinary Catheter Date of Insertion: 08/06/19 Urinary Catheter Time of Insertion: 16:15 Data : 08/09/19 04:25 08/09/19 04:25 Micro: Microbiology 08/09/19 10:00 Gram Stain - Final Sputum - Expectorated Sputum 08/05/19 Unknown Gram Stain - Final Sputum - Expectorated Sputum Sputum Culture - Final Gillian tropicalis A&P Assessment and plan (1) ARDS (adult respiratory distress syndrome): Secondary to pneumonia and influenza a I will continue Tamiflu for prolonged course given his persistent fever De-escalated to Levaquin On oral fluconazole Continue high flow oxygen. Wean as tolerated. He is now down to 30% Continue pulmonary toilet for COPD exacerbation Prednisone has been discontinued for now Continue Lasix [address] angiogram shows no pulmonary embolism Status: Acute Code(s): J80 - Acute respiratory distress syndrome (2) Diastolic CHF: Lasix 20 mg p.o. daily Status: Acute Code(s): I50.30 - Unspecified diastolic (congestive) heart failure (3) Bilateral pneumonia: -On Levaquin -Continue flucanazole -Respiratory cultures unremarkable, blood cultures unremarkable -We will provide antitussive agents to help with hemoptysis Status: Acute Qualifiers: Lung location: lower lobe of lung Pneumonia type: due to unspecified organism Qualified Code(s): J18.9 - Pneumonia, unspecified organism Code(s): J18.9 - Pneumonia, unspecified organism (4) Sepsis: Antibiotics as above. Status: Acute Qualifiers: Acute respiratory failure type: with hypoxia Sepsis acute organ dysfunction status: with acute organ dysfunction Sepsis type: sepsis due to unspecified organism Severe sepsis acute organ dysfunction type: acute respiratory failure Severe sepsis shock status: without septic shock Qualified Code(s): A41.9 - Sepsis, unspecified organism; R65.20 - Severe sepsis without septic shock; J96.01 - Acute respiratory failure with hypoxia Code(s): A41.9 - Sepsis, unspecified organism (5) COPD (chronic obstructive pulmonary disease): Very slow improvement. Status: Acute Code(s): J44.9 - Chronic obstructive pulmonary disease, unspecified Additional A&P Information Transaminitis, improved Continue aggressive PT OT interventions Aggressive pulmonary toilet Will discontinue Bean catheter Tylenol with codeine, Tessalon Perles, antitussive agents for cough Son name is Kobe Patle [phone], updated, all questions were answered to their satisfaction, GI prophylaxis: Protonix Attestations Medical Necessity Statement*: Patient requires continued hospitalization for acute respiratory distress, Coding Level of Care Code Acute Category Consultant for [facility] 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
[2019-08-09 17:40] LABS: Add Urine Microscopic? YES; Bilirubin Urine Neg (NEGATIVE); Blood Urine 3+ (Negative); Glucose Urine UA Trace (Normal); Ketones Urine Negative (Negative); Leukocyte Esterase Urine Negative (Negative); Nitrate Urine Negative (Negative); Protein Urine 1+ (Negative); Urine Appearance Cloudy (CLEAR); Urine Color Yellow (Yellow); Urobilinogen Urine Norm (Negative); pH Urine 5 (5-7)
[2019-08-09 17:48] LABS: RBC Urine 50-80 /hpf (0-2); Squamous Epithelial Cell Urine 0-4 (0-5); WBC Urine 0-4 /hpf (0-5)
[2019-08-09 17:49] LABS: Add Urine Culture? Yes; Bacteria Urine 2+; Calcium Oxalate Crystals Urine 15-25 /hpf
[2019-08-09] MEDS: acetaminophen-codeine 120-12 mg/5 mL UDC 2.5 ML PO (23:53)
[2019-08-10] VITALS (19 sets, daily range): BP systolic 110–122; BP diastolic 56–78; PULSE 102–118; RESP 18–22; TEMP 37.2–38.3; O2SAT 87–95
[2019-08-10] MEDS: ipratropium-albuterol 3 mL Neb INHALATION ×5 (03:59→21:04)
[2019-08-10] MEDS: levoFLOXacin 750 mg Tablet PO (05:29)
[2019-08-10 06:46] LABS: Basophils % 0.1 %; Eosinophils # 0.2 10^3/uL (0.0-0.8); Eosinophils % 0.9 %; Hematocrit 33.1 % (42.0-52.0); Hemoglobin 10.9 g/dL (11.7-16.6); Lymphocytes # 0.6 10^3/uL (0.8-4.8); Lymphocytes % 3.8 %; Mean Corpuscular HGB Conc 32.9 g/dL (30.0-36.0); Mean Corpuscular Hemoglobin 31.2 pg (28.0-34.0); Mean Corpuscular Volume 94.8 fL (80-94); Mean Platelet Volume 10.5 fL (7.4-10.4); Monocytes # 0.8 10^3/uL (0.2-0.9); Monocytes % 5.1 %; Neutrophils # 14.7 10^3/uL (1.8-7.7); Neutrophils % 89.3 %; Nucleated Red Blood Cells % 0 %; Platelet Count 302 10^3/cmm (130-400); Red Blood Count 3.49 10^6/uL (4.1-5.3); Red Cell Distribution Width 13.4 % (12.1-15.1); White Blood Count 16.5 10^3/uL (4.0-10.0)
[2019-08-10 07:04] LABS: Alanine Aminotransferase 101 U/L (0-41); Albumin Level 1.9 g/dL (3.5-5.2); Alkaline Phosphatase 150 IU/L (40-130); Anion Gap 12.1 (5-19); Aspartate Amino Transferase 82 U/L (0-40); Blood Urea Nitrogen 14 mg/dL (8-23); Calcium 8.1 mg/dL (8.5-10.5); Carbon Dioxide 27 mmol/L (22-29); Chloride 99 mmol/L (98-107); Glucose 131 mg/dL (65-115); Osmolality Calculated 276 mOsm/kg (285-295); Potassium 4.1 mmol/L (3.5-5.1); Sodium 134 mmol/L (136-145); Total Bilirubin 0.5 mg/dL (0.15-1.2); Total Protein 5.9 g/dL (6.6-8.7)
[2019-08-10] MEDS: budesonide 0.5 mg/2 mL Neb INHALATION ×2 (07:43→21:04)
[2019-08-10] MEDS: pantoprazole DR 40 mg Tablet PO (08:47)
[2019-08-10] MEDS: oseltamivir phosphate 75 mg Capsule PO (08:47)
[2019-08-10] MEDS: FUROsemide 20 mg Tablet PO (08:47)
[2019-08-10] MEDS: fluconazole 100 mg Tablet 400 MG PO (08:47)
[2019-08-10] MEDS: guaiFENesin-dextromethorphan UDC 10 mL 5 ML PO (08:53)
--- NOTE | 2019-08-10 09:05 | USCV_ITS ---
José Patel Age: 59 Gender: M : 1960 Exam Date: 08/10/2019 12:40 Ordering Phys: Marcel Murrieta MD Technologist: Peterson Baez Exam Location: [facility] [place] Indication: fevers HISTORY: Fevers PROCEDURES: Examined bilaterally were the greater saphenous, common femoral, femoral, profunda, popliteal, posterior tibial veins, and peroneal trunk.. FINDINGS: All veins examined appear free of thrombus. No filling defects on color Doppler flow analysis. Vein flow and caliber vary with respiration. Increase in venous flow with augmentation. All veins appear compressible.. CONCLUSIONS No evidence of right lower extremity DVT. No evidence of left lower extremity DVT. Popliteal cyst measuring 3.3 x1.1cm Jose Berg MD (Electronically Signed) Final Date: 10 August 2019 16:48 S
--- NOTE | 2019-08-10 10:02 | ECG_ITS ---
Measurements Intervals [place] Rate: 117 P: 48 KS: 152 QRS: 1 QRSD: 90 T: 24 QT: 289 QTc: 404 SINUS TACHYCARDIA SEPTAL MYOCARDIAL INFARCTION [40+ ms Q WAVE IN V1/V2], OF INDETERMINATE AGE No previous ECG available for comparison Electronically Signed On 08-13-2019 14:49:58 CDT by Lesli Melgar M.D. [email or web address]
--- NOTE | 2019-08-10 12:17 | PM.PN ---
Subjective Subjective: Interval history: This morning patient states that he just does not feel well, has fatigue, weakness, has a persistent cough, has had fevers overnight, poor appetite Vitals/I&O/Wt Last Vital Signs Temp 99.0 F 08/10/19 11:04 Pulse 118 H 08/10/19 11:04 Resp 18 08/10/19 11:04 BP 122/78 08/10/19 11:04 Pulse Ox 90 08/10/19 11:04 08/09/19 08/10/19 08/10/19 22:59 06:59 14:59 Intake Total 540 / 780 Output Total 300 / 300 625 / 625 Balance 240 / 480 -625 / -625 Physical Exam Const: COMMON NORMALS: no apparent distress and oriented x3 HENMT: COMMON NORMALS: normocephalic HEAD & SCALP: normocephalic Neck/C-Spine: COMMON NORMALS: no JVD Resp: COMMON NORMALS: normal respiratory effort, no retractions, no use of accessory muscles and clear to auscultation bilaterally AUSCULTATION: clear to auscultation bilaterally Cardio: COMMON NORMALS: no JVD, regular rate, regular rhythm, S1 normal heart sound and S2 normal heart sound RATE: regular rate RHYTHM: regular rhythm HEART SOUNDS: S1 normal and S2 normal GI: COMMON NORMALS: normal to inspection, nondistended, normoactive bowel sounds, soft to palpation, non-tender, no hepatosplenomegaly, no masses and no bruits PALPATION: Yes soft and Yes no hepatosplenomegaly Extremity: COMMON NORMALS: normal capillary refill, no clubbing, cyanosis or edema, no calf tenderness and no pedal edema Neuro: COMMON NORMALS: oriented x3 Urinary Catheter Management^: Bean: Cath Placed During This Visit: yes Reason for Continuing Indwelling Catheter: Accurate Measurement of Urinary Output in Critically Ill Patients Urinary Catheter Date of Insertion: 08/06/19 Urinary Catheter Time of Insertion: 16:15 Data : 08/10/19 05:46 08/10/19 05:46 Micro: Microbiology 08/09/19 10:00 Gram Stain - Final Sputum - Expectorated Sputum Sputum Culture - Preliminary 08/05/19 Unknown Gram Stain - Final Sputum - Expectorated Sputum Sputum Culture - Final Gillian tropicalis A&P Assessment and plan (1) ARDS (adult respiratory distress syndrome): Secondary to pneumonia and influenza a Patient's oxygen requirements have remained the same, no sudden deterioration overnight, no worsening of respiratory status, continues to have a productive cough and hemoptysis Patient has persistent fevers, which are likely drug-induced fevers, stop Tamiflu, top fluconazole, stop Levaquin Continue high flow oxygen. Wean as tolerated. He is now down to 30% Continue pulmonary toilet for COPD exacerbation Aggressive cough control, Tessalon Perles, Tylenol with codeine, antitussive agents Prednisone has been discontinued for now Continue Lasix [address] angiogram shows no pulmonary embolism Cultures all have been unremarkable Status: Acute Code(s): J80 - Acute respiratory distress syndrome (2) Diastolic CHF: Lasix 20 mg p.o. daily Status: Acute Code(s): I50.30 - Unspecified diastolic (congestive) heart failure (3) Bilateral pneumonia: -I have de-escalate all antibiotics -We will provide antitussive agents to help with hemoptysis Status: Acute Qualifiers: Lung location: lower lobe of lung Pneumonia type: due to unspecified organism Qualified Code(s): J18.9 - Pneumonia, unspecified organism Code(s): J18.9 - Pneumonia, unspecified organism (4) Sepsis: Antibiotics as above. Status: Acute Qualifiers: Acute respiratory failure type: with hypoxia Sepsis acute organ dysfunction status: with acute organ dysfunction Sepsis type: sepsis due to unspecified organism Severe sepsis acute organ dysfunction type: acute respiratory failure Severe sepsis shock status: without septic shock Qualified Code(s): A41.9 - Sepsis, unspecified organism; R65.20 - Severe sepsis without septic shock; J96.01 - Acute respiratory failure with hypoxia Code(s): A41.9 - Sepsis, unspecified organism (5) COPD (chronic obstructive pulmonary disease): Very slow improvement. Status: Acute Code(s): J44.9 - Chronic obstructive pulmonary disease, unspecified Additional A&P Information Transaminitis, improved Continue aggressive PT OT interventions Aggressive pulmonary toilet Bean catheter was removed yesterday, urinating without any significant difficulty Tylenol with codeine, Tessalon Perles, antitussive agents for cough Working on Medicare number pending, hopefully placing patient to LTAC, see if he can get high flow at home Son name is Kobe Patel [phone], updated, all questions were answered to their satisfaction, GI prophylaxis: Protonix Attestations Medical Necessity Statement*: Patient requires hospitalization for acute respiratory distress, high flow oxygen requirements Coding Level of Care Code Acute 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
[2019-08-10] MEDS: acetaminophen-codeine 120-12 mg/5 mL UDC 2.5 ML PO (23:51)
[2019-08-11] VITALS (14 sets, daily range): BP systolic 114–124; BP diastolic 67–78; PULSE 16–130; RESP 18–23; TEMP 37.2–37.6; O2SAT 86–92
--- NOTE | 2019-08-11 05:52 | PC.NURSE ---
SHIFT SUMMARY Patient is here d/t flu A, sepsis, and acute respiratory failure. On heated highflow O2 at 30L at 45%. Had a large Bowel movement tonight and 320 of urine output. Had a fever through the night of 100.9 and was given Tylenol which reduced fever to 99.8. Patient's O2 has been between 87% and 91% through the night. At this time patient is in bed watching TV.
[2019-08-11 08:32] LABS: Basophils # 0.1 10^3/uL (0.0-0.1); Basophils % 0.3 %; Eosinophils # 0.1 10^3/uL (0.0-0.8); Eosinophils % 0.2 %; Hematocrit 34.2 % (42.0-52.0); Hemoglobin 10.8 g/dL (11.7-16.6); Lymphocytes # 0.7 10^3/uL (0.8-4.8); Lymphocytes % 3.4 %; Mean Corpuscular HGB Conc 31.6 g/dL (30.0-36.0); Mean Corpuscular Hemoglobin 30.3 pg (28.0-34.0); Mean Corpuscular Volume 95.8 fL (80-94); Mean Platelet Volume 10.8 fL (7.4-10.4); Monocytes % 5.1 %; Neutrophils # 18.3 10^3/uL (1.8-7.7); Neutrophils % 90.4 %; Nucleated Red Blood Cells % 0 %; Platelet Count 343 10^3/cmm (130-400); Red Blood Count 3.57 10^6/uL (4.1-5.3); Red Cell Distribution Width 13.5 % (12.1-15.1); White Blood Count 20.2 10^3/uL (4.0-10.0)
[2019-08-11] MEDS: budesonide 0.5 mg/2 mL Neb INHALATION ×2 (08:46→22:16)
[2019-08-11] MEDS: ipratropium-albuterol 3 mL Neb INHALATION ×2 (08:48→14:21)
[2019-08-11 08:56] LABS: Alanine Aminotransferase 192 U/L (0-41); Albumin Level 2.1 g/dL (3.5-5.2); Alkaline Phosphatase 204 IU/L (40-130); Anion Gap 18.1 (5-19); Aspartate Amino Transferase 115 U/L (0-40); Blood Urea Nitrogen 18 mg/dL (8-23); Calcium 8.1 mg/dL (8.5-10.5); Carbon Dioxide 24 mmol/L (22-29); Chloride 94 mmol/L (98-107); Globulin 3.7 g/dL (1.3-4.6); Glomerular Filtration Rate 114.6 mL/min (90-130); Glucose 103 mg/dL (65-115); Osmolality Calculated 271 mOsm/kg (285-295); Potassium 4.1 mmol/L (3.5-5.1); Sodium 132 mmol/L (136-145); Total Bilirubin 0.5 mg/dL (0.15-1.2); Total Protein 5.8 g/dL (6.6-8.7)
[2019-08-11] MEDS: pantoprazole DR 40 mg Tablet PO (08:58)
[2019-08-11] MEDS: FUROsemide 20 mg Tablet PO (08:58)
--- NOTE | 2019-08-11 14:35 | PM.PN ---
Subjective Subjective: Interval history: This morning patient is having breakfast, has no complaints, is been having episodes of sinus tachycardia, intermittent episodes of tachypnea, is up to 50 L today, had a few febrile episodes overnight, antibiotics have been stopped due to concerns of drug fevers, patient states that he is tired, feels a little bit more energized today Vitals/I&O/Wt Last Vital Signs Temp 99.0 F 08/11/19 11:24 Pulse 111 H 08/11/19 14:23 Resp 20 H 08/11/19 14:23 BP 120/78 08/11/19 11:24 Pulse Ox 90 08/11/19 14:23 08/10/19 08/11/19 08/11/19 22:59 06:59 14:59 Intake Total 120 / 240 600 / 600 Output Total 320 / 945 Balance 120 / -385 -320 / -705 600 / 600 Physical Exam Const: COMMON NORMALS: no apparent distress and oriented x3 HENMT: COMMON NORMALS: normocephalic HEAD & SCALP: normocephalic Neck/C-Spine: COMMON NORMALS: no JVD Resp: COMMON NORMALS: normal respiratory effort, no retractions, no use of accessory muscles and clear to auscultation bilaterally AUSCULTATION: clear to auscultation bilaterally Cardio: COMMON NORMALS: no JVD, regular rate, regular rhythm, S1 normal heart sound and S2 normal heart sound RATE: regular rate RHYTHM: regular rhythm HEART SOUNDS: S1 normal and S2 normal GI: COMMON NORMALS: normal to inspection, nondistended, normoactive bowel sounds, soft to palpation, non-tender, no hepatosplenomegaly, no masses and no bruits PALPATION: Yes soft and Yes no hepatosplenomegaly Extremity: COMMON NORMALS: normal capillary refill, no clubbing, cyanosis or edema, no calf tenderness and no pedal edema Neuro: COMMON NORMALS: oriented x3 Psych: COMMON NORMALS: mental status grossly normal Urinary Catheter Management^: Bean: Cath Placed During This Visit: yes Reason for Continuing Indwelling Catheter: Accurate Measurement of Urinary Output in Critically Ill Patients Urinary Catheter Date of Insertion: 08/06/19 Urinary Catheter Time of Insertion: 16:15 Data : 08/12/19 05:26 08/12/19 05:26 Micro: Microbiology 08/09/19 15:20 Urine Culture - Preliminary Urine,Clean Catch 08/09/19 10:00 Gram Stain - Final Sputum - Expectorated Sputum Sputum Culture - Final 08/06/19 01:09 Blood Culture - Final Blood NO GROWTH AFTER 5 DAYS 08/06/19 01:17 Blood Culture - Final Blood NO GROWTH AFTER 5 DAYS A&P Assessment and plan (1) ARDS (adult respiratory distress syndrome): Secondary to pneumonia and influenza a Patient's oxygen requirements have remained the same, no sudden deterioration overnight, no worsening of respiratory status, continues to have a productive cough and hemoptysis Patient has persistent fevers, which are likely drug-induced fevers, stop Tamiflu, stop fluconazole, stop Levaquin Continue high flow oxygen. Wean as tolerated. He is now down to 30% Continue pulmonary toilet for COPD exacerbation Aggressive cough control, Tessalon Perles, Tylenol with codeine, antitussive agents Prednisone has been discontinued for now Hold Lasix CT angiogram shows no pulmonary embolism Culture showed Gillian tropicalis, has received flucanazole Status: Acute Code(s): J80 - Acute respiratory distress syndrome (2) Diastolic CHF: Lasix 20 mg p.o. daily Status: Acute Code(s): I50.30 - Unspecified diastolic (congestive) heart failure (3) Bilateral pneumonia: -I have de-escalate all antibiotics -We will provide antitussive agents to help with hemoptysis Status: Acute Qualifiers: Lung location: lower lobe of lung Pneumonia type: due to unspecified organism Qualified Code(s): J18.9 - Pneumonia, unspecified organism Code(s): J18.9 - Pneumonia, unspecified organism (4) Sepsis: Antibiotics as above. Status: Acute Qualifiers: Acute respiratory failure type: with hypoxia Sepsis acute organ dysfunction status: with acute organ dysfunction Sepsis type: sepsis due to unspecified organism Severe sepsis acute organ dysfunction type: acute respiratory failure Severe sepsis shock status: without septic shock Qualified Code(s): A41.9 - Sepsis, unspecified organism; R65.20 - Severe sepsis without septic shock; J96.01 - Acute respiratory failure with hypoxia Code(s): A41.9 - Sepsis, unspecified organism (5) COPD (chronic obstructive pulmonary disease): Very slow improvement. Status: Acute Code(s): J44.9 - Chronic obstructive pulmonary disease, unspecified Additional A&P Information Transaminitis, improved Continue aggressive PT OT interventions Aggressive pulmonary toilet Bean catheter was removed yesterday, urinating without any significant difficulty Tylenol with codeine, Tessalon Perles, antitussive agents for cough Working on Medicare number pending, hopefully placing patient to LTAC, see if he can get high flow at home Son name is Kobe Patel [phone], updated, all questions were answered to their satisfaction, GI prophylaxis: Protonix Attestations Medical Necessity Statement*: requires hospitalization for respiratory failure Coding Level of Care Code Acute Adult Probation Officer for Chg Fwd Exam Comprehensive Diagnoses ARDS (adult respiratory distress syndrome) J80 Diastolic CHF I50.30 Bilateral pneumonia J18.9 Lung location: lower lobe of lung Pneumonia type: due to unspecified organism Sepsis A41.9; R65.20; J96.01 Acute respiratory failure type: with hypoxia Sepsis acute organ dysfunction status: with acute organ dysfunction Sepsis type: sepsis due to unspecified organism Severe sepsis acute organ dysfunction type: acute respiratory failure Severe sepsis shock status: without septic shock COPD (chronic obstructive pulmonary disease) J44.9
[2019-08-11] MEDS: fluconazole 100 mg Tablet 200 MG PO (17:48)
[2019-08-12] VITALS (14 sets, daily range): BP systolic 109–118; BP diastolic 58–72; PULSE 89–121; RESP 18–22; TEMP 37.3–38.6; O2SAT 89–92
[2019-08-12] MEDS: acetaminophen 325 mg Tablet 650 MG PO ×2 (02:07→16:01)
[2019-08-12 05:55] LABS: Basophils # 0.1 10^3/uL (0.0-0.1); Basophils % 0.2 %; Eosinophils # 0.4 10^3/uL (0.0-0.8); Eosinophils % 1.8 %; Hematocrit 31.3 % (42.0-52.0); Hemoglobin 10.2 g/dL (11.7-16.6); Lymphocytes # 1.1 10^3/uL (0.8-4.8); Lymphocytes % 5.5 %; Mean Corpuscular HGB Conc 32.6 g/dL (30.0-36.0); Mean Corpuscular Hemoglobin 30.5 pg (28.0-34.0); Mean Corpuscular Volume 93.7 fL (80-94); Mean Platelet Volume 10.3 fL (7.4-10.4); Monocytes # 1.2 10^3/uL (0.2-0.9); Monocytes % 5.7 %; Neutrophils # 17.4 10^3/uL (1.8-7.7); Neutrophils % 84.7 %; Nucleated Red Blood Cells % 0 %; Platelet Count 331 10^3/cmm (130-400); Red Blood Count 3.34 10^6/uL (4.1-5.3); Red Cell Distribution Width 13.5 % (12.1-15.1); White Blood Count 20.5 10^3/uL (4.0-10.0)
[2019-08-12 06:04] LABS: Alanine Aminotransferase 138 U/L (0-41); Albumin Level 2.1 g/dL (3.5-5.2); Alkaline Phosphatase 175 IU/L (40-130); Anion Gap 14.8 (5-19); Aspartate Amino Transferase 92 U/L (0-40); Blood Urea Nitrogen 16 mg/dL (8-23); Calcium 8.3 mg/dL (8.5-10.5); Carbon Dioxide 26 mmol/L (22-29); Chloride 98 mmol/L (98-107); Globulin 3.4 g/dL (1.3-4.6); Glucose 137 mg/dL (65-115); Osmolality Calculated 278 mOsm/kg (285-295); Potassium 3.8 mmol/L (3.5-5.1); Sodium 135 mmol/L (136-145); Total Bilirubin 0.4 mg/dL (0.15-1.2); Total Protein 5.5 g/dL (6.6-8.7)
[2019-08-12 06:23] LABS: Slide Review Slide Review Perform
[2019-08-12] MEDS: budesonide 0.5 mg/2 mL Neb INHALATION ×2 (07:47→21:58)
[2019-08-12] MEDS: ipratropium-albuterol 3 mL Neb INHALATION ×3 (07:47→21:58)
[2019-08-12] MEDS: pantoprazole DR 40 mg Tablet PO (08:34)
[2019-08-12] MEDS: fluconazole 100 mg Tablet 200 MG PO (08:34)
--- NOTE | 2019-08-12 12:00 | PM.PN ---
Subjective Subjective: Interval history: This morning patient states that he has a bit of wheezing, feels a bit short of breath, his appetite has improved somewhat, has a few febrile episodes overnight, continues to have a productive cough Vitals/I&O/Wt Last Vital Signs Temp 99.1 F 08/12/19 11:50 Pulse 121 H 08/12/19 11:50 Resp 22 H 08/12/19 11:50 BP 118/61 08/12/19 11:50 Pulse Ox 90 08/12/19 11:50 08/11/19 08/12/19 08/12/19 22:59 06:59 14:59 Intake Total 0 / 600 240 / 240 Output Total 375 / 375 350 / 725 Balance -375 / 225 -350 / -125 240 / 240 Physical Exam Const: COMMON NORMALS: no apparent distress and oriented x3 HENMT: COMMON NORMALS: normocephalic HEAD & SCALP: normocephalic Neck/C-Spine: COMMON NORMALS: no JVD Resp: COMMON NORMALS: normal respiratory effort, no retractions and no use of accessory muscles AUSCULTATION: wheezes Cardio: COMMON NORMALS: no JVD, regular rate, regular rhythm, S1 normal heart sound and S2 normal heart sound RATE: regular rate RHYTHM: regular rhythm HEART SOUNDS: S1 normal and S2 normal GI: COMMON NORMALS: normal to inspection, nondistended, normoactive bowel sounds, soft to palpation, non-tender, no hepatosplenomegaly, no masses and no bruits PALPATION: Yes soft and Yes no hepatosplenomegaly Extremity: COMMON NORMALS: normal capillary refill, no clubbing, cyanosis or edema, no calf tenderness and no pedal edema Neuro: COMMON NORMALS: oriented x3 Psych: COMMON NORMALS: mental status grossly normal Urinary Catheter Management^: Bean: Cath Placed During This Visit: yes Reason for Continuing Indwelling Catheter: Accurate Measurement of Urinary Output in Critically Ill Patients Urinary Catheter Date of Insertion: 08/12/19 Urinary Catheter Time of Insertion: 05:09 Data : 08/12/19 05:26 08/12/19 05:26 Micro: Microbiology 08/09/19 15:20 Urine Culture - Preliminary Urine,Clean Catch 08/09/19 10:00 Gram Stain - Final Sputum - Expectorated Sputum Sputum Culture - Final A&P Assessment and plan (1) ARDS (adult respiratory distress syndrome): Secondary to pneumonia and influenza a Patient's oxygen requirements have remained the same, no sudden deterioration overnight, no worsening of respiratory status, continues to have a productive cough and hemoptysis Patient has persistent fevers, which are likely drug-induced fevers, stop Tamiflu, stop fluconazole, stop Levaquin Continue high flow oxygen. Wean as tolerated. He is now down to 30% Continue pulmonary toilet for COPD exacerbation Aggressive cough control, Tessalon Perles, Tylenol with codeine, antitussive agents Prednisone has been discontinued for now Hold Lasix CT angiogram shows no pulmonary embolism Culture showed Gillian tropicalis, has received flucanazole Status: Acute Code(s): J80 - Acute respiratory distress syndrome (2) Diastolic CHF: Lasix 20 mg p.o. daily Status: Acute Code(s): I50.30 - Unspecified diastolic (congestive) heart failure (3) Bilateral pneumonia: -I have de-escalate all antibiotics -We will provide antitussive agents to help with hemoptysis Status: Acute Qualifiers: Lung location: lower lobe of lung Pneumonia type: due to unspecified organism Qualified Code(s): J18.9 - Pneumonia, unspecified organism Code(s): J18.9 - Pneumonia, unspecified organism (4) Sepsis: Antibiotics as above. Status: Acute Qualifiers: Acute respiratory failure type: with hypoxia Sepsis acute organ dysfunction status: with acute organ dysfunction Sepsis type: sepsis due to unspecified organism Severe sepsis acute organ dysfunction type: acute respiratory failure Severe sepsis shock status: without septic shock Qualified Code(s): A41.9 - Sepsis, unspecified organism; R65.20 - Severe sepsis without septic shock; J96.01 - Acute respiratory failure with hypoxia Code(s): A41.9 - Sepsis, unspecified organism (5) COPD (chronic obstructive pulmonary disease): Very slow improvement. Status: Acute Code(s): J44.9 - Chronic obstructive pulmonary disease, unspecified (6) Drug induced fever: -I am continue flucanazole, but all antibiotics, and antiviral medications have been stopped -Continue to monitor fevers, patient has not declined as have stopped antibiotics over 72 hours ago Status: Acute Code(s): R50.2 - Drug induced fever (7) SVT (supraventricular tachycardia): Patient is having episodes of SVT, start low-dose metoprolol Status: Acute Code(s): I47.1 - Supraventricular tachycardia (8) Acute urinary retention: -Patient continues to have episodes of acute urinary retention, high postvoid residual volume -I have tried extensive conservative management, but patient has failed multiple times -At 1 point patient's Bean catheter was removed due to hematuria, likely second to bladder trauma from Bean catheter, patient was able to void, but after a few days continued to have episodes urinary retention, high postvoid residual -Has Flomax -Bean catheter was placed on 08/11/2019, I will keep it in place, with a follow-up with Dr. Yoder as outpatient whenever he is discharged Status: Acute Code(s): R33.8 - Other retention of urine Additional A&P Information Transaminitis, improved Continue aggressive PT OT interventions Aggressive pulmonary toilet Bean catheter was removed yesterday, urinating without any significant difficulty Tylenol with codeine, Tessalon Perles, antitussive agents for cough Working on Medicare number pending, hopefully placing patient to LTAC, see if he can get high flow at home Son name is Kobe Patel [phone], updated, all questions were answered to their satisfaction, GI prophylaxis: Protonix Attestations Medical Necessity Statement*: Requires continued hospitalization due to acute respiratory distress Coding Level of Care Code Acute 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 Drug induced fever R50.2 SVT (supraventricular tachycardia) I47.1 Acute urinary retention R33.8
[2019-08-12] MEDS: metoprolol tartrate 25 mg Tablet 12.5 MG PO ×2 (12:44→18:38)
[2019-08-12] MEDS: benzonatate 100 mg Capsule 200 MG PO (16:01)
[2019-08-13] VITALS (13 sets, daily range): BP systolic 112–136; BP diastolic 70–84; PULSE 22–115; RESP 18–102; TEMP 36.8–37.3; O2SAT 84–94
[2019-08-13 06:27] LABS: Basophils # 0.1 10^3/uL (0.0-0.1); Basophils % 0.3 %; Hematocrit 32.9 % (42.0-52.0); Hemoglobin 10.7 g/dL (11.7-16.6); Lymphocytes % 3.6 %; Mean Corpuscular HGB Conc 32.5 g/dL (30.0-36.0); Mean Corpuscular Hemoglobin 30.9 pg (28.0-34.0); Mean Corpuscular Volume 95.1 fL (80-94); Mean Platelet Volume 10.7 fL (7.4-10.4); Monocytes # 1.1 10^3/uL (0.2-0.9); Monocytes % 3.9 %; Neutrophils # 24.3 10^3/uL (1.8-7.7); Neutrophils % 90.5 %; Nucleated Red Blood Cells % 0 %; Platelet Count 391 10^3/cmm (130-400); Red Blood Count 3.46 10^6/uL (4.1-5.3); Red Cell Distribution Width 13.3 % (12.1-15.1); White Blood Count 26.9 10^3/uL (4.0-10.0)
[2019-08-13 06:44] LABS: Alanine Aminotransferase 153 U/L (0-41); Albumin Level 2.1 g/dL (3.5-5.2); Alkaline Phosphatase 238 IU/L (40-130); Aspartate Amino Transferase 84 U/L (0-40); Blood Urea Nitrogen 15 mg/dL (8-23); Calcium 8.3 mg/dL (8.5-10.5); Carbon Dioxide 31 mmol/L (22-29); Chloride 97 mmol/L (98-107); Globulin 3.8 g/dL (1.3-4.6); Glomerular Filtration Rate 218.7 mL/min (90-130); Glucose 148 mg/dL (65-115); Osmolality Calculated 279 mOsm/kg (285-295); Sodium 135 mmol/L (136-145); Total Bilirubin 0.4 mg/dL (0.15-1.2); Total Protein 5.9 g/dL (6.6-8.7)
[2019-08-13 07:15] LABS: Slide Review Slide Review Perform
[2019-08-13] MEDS: tamsulosin 0.4 mg Capsule PO (09:29)
[2019-08-13] MEDS: metoprolol tartrate 25 mg Tablet 12.5 MG PO ×2 (09:29→17:44)
[2019-08-13] MEDS: pantoprazole DR 40 mg Tablet PO (09:29)
[2019-08-13] MEDS: fluconazole 100 mg Tablet 200 MG PO (09:29)
--- NOTE | 2019-08-13 15:38 | P.PN_ITS ---
Subjective Subjective: Interval history: Patient states he is doing bit better today, less wheezing, has got gotten up out of bed, he is responded well to steroids, his flow rate has been decreased to 25%, still on 50%, remains afebrile for the last 24 hours Vitals/I&O/Wt Last Vital Signs Temp 98.3 F 08/13/19 15:22 Pulse 102 H 08/13/19 15:22 Resp 18 08/13/19 15:22 BP 136/84 08/13/19 15:22 Pulse Ox 85 L 08/13/19 15:22 08/13/19 08/13/19 08/13/19 06:59 14:59 22:59 Intake Total 720 / 720 Output Total 400 / 650 Balance -400 / -170 720 / 720 Physical Exam Const: COMMON NORMALS: no apparent distress and oriented x3 HENMT: COMMON NORMALS: normocephalic HEAD & SCALP: normocephalic Neck/C-Spine: COMMON NORMALS: no JVD Resp: COMMON NORMALS: normal respiratory effort, no retractions, no use of accessory muscles and clear to auscultation bilaterally AUSCULTATION: clear to auscultation bilaterally Cardio: COMMON NORMALS: no JVD, regular rate, regular rhythm, S1 normal heart sound and S2 normal heart sound RATE: regular rate RHYTHM: regular rhythm HEART SOUNDS: S1 normal and S2 normal GI: COMMON NORMALS: normal to inspection, nondistended, normoactive bowel sounds, soft to palpation, non-tender, no hepatosplenomegaly, no masses and no bruits PALPATION: Yes soft and Yes no hepatosplenomegaly Extremity: COMMON NORMALS: normal capillary refill, no clubbing, cyanosis or edema, no calf tenderness and no pedal edema Neuro: COMMON NORMALS: oriented x3 Psych: COMMON NORMALS: mental status grossly normal Urinary Catheter Management^: Bean: Cath Placed During This Visit: yes Reason for Continuing Indwelling Catheter: Acute Urinary Retention or Obstruction Urinary Catheter Date of Insertion: 08/12/19 Urinary Catheter Time of Insertion: 05:09 Data : 08/13/19 05:37 08/13/19 05:37 Micro: Microbiology 08/09/19 15:20 Urine Culture - Final Urine,Clean Catch A&P Assessment and plan (1) ARDS (adult respiratory distress syndrome): Secondary to pneumonia and influenza a Patient's oxygen requirements have remained the same, no sudden deterioration overnight, no worsening of respiratory status, continues to have a productive cough and hemoptysis Patient has persistent fevers, which are likely drug-induced fevers, stop Tamiflu, stop Levaquin Continue high flow oxygen. Wean as tolerated. He is up to 50% Have started steroids yesterday, will continue today Continue pulmonary toilet for COPD exacerbation Aggressive cough control, Tessalon Perles, Tylenol with codeine, antitussive agents Hold Lasix CT angiogram shows no pulmonary embolism Culture showed Gillian tropicalis, continue fluconazole Status: Acute Code(s): J80 - Acute respiratory distress syndrome (2) Diastolic CHF: Lasix 20 mg p.o. daily Status: Acute Code(s): I50.30 - Unspecified diastolic (congestive) heart failure (3) Bilateral pneumonia: -I have de-escalate all antibiotics -We will provide antitussive agents to help with hemoptysis Status: Acute Qualifiers: Lung location: lower lobe of lung Pneumonia type: due to unspecified organism Qualified Code(s): J18.9 - Pneumonia, unspecified organism Code(s): J18.9 - Pneumonia, unspecified organism (4) Sepsis: Antibiotics as above. Status: Acute Qualifiers: Acute respiratory failure type: with hypoxia Sepsis acute organ dysfunction status: with acute organ dysfunction Sepsis type: sepsis due to unspecified organism Severe sepsis acute organ dysfunction type: acute respiratory failure Severe sepsis shock status: without septic shock Qualified Code(s): A41.9 - Sepsis, unspecified organism; R65.20 - Severe sepsis without septic shock; J96.01 - Acute respiratory failure with hypoxia Code(s): A41.9 - Sepsis, unspecified organism (5) COPD (chronic obstructive pulmonary disease): Very slow improvement. Status: Acute Code(s): J44.9 - Chronic obstructive pulmonary disease, unspecified (6) Drug induced fever: -I am continue flucanazole, but all antibiotics, and antiviral medications have been stopped -Continue to monitor fevers, patient has not declined as have stopped anti biotics over 72 hours ago Status: Acute Code(s): R50.2 - Drug induced fever (7) SVT (supraventricular tachycardia): Patient is having episodes of SVT, start low-dose metoprolol Status: Acute Code(s): I47.1 - Supraventricular tachycardia (8) Acute urinary retention: -Patient continues to have episodes of acute urinary retention, high postvoid residual volume -I have tried extensive conservative management, but patient has failed multiple times -At 1 point patient's Bean catheter was removed due to hematuria, likely second to bladder trauma from Bean catheter, patient was able to void, but after a few days continued to have episodes urinary retention, high postvoid residual -Has Flomax -Bean catheter was placed on 08/11/2019, I will keep it in place, with a follow- up with Dr. Yoder as outpatient whenever he is discharged Status: Acute Code(s): R33.8 - Other retention of urine Additional A&P Information Transaminitis, improved Continue aggressive PT OT interventions Working on Medicare number pending, hopefully placing patient to LTAC, see if he can get high flow at home Son name is Kobe Patel [phone], updated, all questions were answered to their satisfaction, GI prophylaxis: Protonix Attestations Medical Necessity Statement*: Patient requires continued hospitalization for acute respiratory distress syndrome Coding Level of Care Code Acute Vice President Marketing & 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 for [facility] 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 Drug induced fever R50.2 SVT (supraventricular tachycardia) I47.1 Acute urinary retention R33.8
[2019-08-13] MEDS: predniSONE 20 mg Tablet 40 MG PO (15:51)
[2019-08-13] MEDS: ipratropium-albuterol 3 mL Neb INHALATION (19:54)
[2019-08-13] MEDS: budesonide 0.5 mg/2 mL Neb INHALATION (19:54)
--- NOTE | 2019-08-13 23:51 | PC.NURSE ---
Pt has increased confusion, has removed high flow oxygen several times, unable to state date or time. Pt oxygen saturation drops to 50% with any movement. RT consulted and Dr. Connolly notified. suggests getting ABG and then she will come up to see pt.
[2019-08-14] VITALS (32 sets, daily range): BP systolic 83–154; BP diastolic 48–91; PULSE 81–174; RESP 18–54; TEMP 35.6–39.4; O2SAT 83–97
[2019-08-14 00:06] LABS: ABG PCO2 32.3 mmHg (35-45); ABG PH Result 7.53 (7.35-7.45); Alveolar-Arterial Oxygen Gradi 332.5 mmHg (5-10); Arterial Blood Gas Hematocrit 35.3 % (42-52); Base Excess ABG 4.1 mmol/L (-2.0-2.0); Blood Gas Allen Test Pos; Blood Gas Sample Site Brachial, right; Blood Gas Sample Type Arterial; Carboxyhemoglobin 0.5 %THgb (0.4-20.1); HCO3 ABG 26.7 mmol/L (22-26); HGB O2 Sat 87.5 % (95-100); Ionized Calcium Level - ABG 1.2 mmol/L (1.1-1.4); Methemoglobin 0.7 % (0.4-1.5); Oxygen Device NC; Oxygen Saturation ABG 88.5; PO2 ABG 50.6 mmHg (80.0-100.0); Potassium Level - ABG 4.1 mmol/L (3.5-5.0); Total Hemoglobin 11.5 g/dL (14-18)
--- NOTE | 2019-08-14 03:05 | PC.RESP ---
2350: Pt has been pulling off heated high flow cannula, sats have dropped down to the 50s. Dr. Pradhan notified, ABG done. Results given to Dr. Pradhan. By the time she saw the pt, O2 sat has increased backed up to 96%. Dr. Pradhan thinks he looks better, nothing further ordered at this time.
[2019-08-14] MEDS: ipratropium-albuterol 3 mL Neb INHALATION ×6 (03:28→23:22)
[2019-08-14 07:01] LABS: Basophils # 0.1 10^3/uL (0.0-0.1); Basophils % 0.3 %; Eosinophils % 0.1 %; Hematocrit 34.4 % (42.0-52.0); Hemoglobin 11.2 g/dL (11.7-16.6); Lymphocytes # 1.4 10^3/uL (0.8-4.8); Lymphocytes % 4.4 %; Mean Corpuscular HGB Conc 32.6 g/dL (30.0-36.0); Mean Corpuscular Volume 95.3 fL (80-94); Mean Platelet Volume 10.5 fL (7.4-10.4); Monocytes # 1.8 10^3/uL (0.2-0.9); Monocytes % 5.4 %; Neutrophils # 28.2 10^3/uL (1.8-7.7); Neutrophils % 86.2 %; Nucleated Red Blood Cells % 0.1 %; Platelet Count 479 10^3/cmm (130-400); Red Blood Count 3.61 10^6/uL (4.1-5.3); Red Cell Distribution Width 13.7 % (12.1-15.1)
[2019-08-14 07:09] LABS: White Blood Count 32.7 10^3/uL (4.0-10.0)
--- NOTE | 2019-08-14 07:23 | XR_ITS ---
WS: [id number] XR chest 1V portable [id number] REASON FOR EXAM: increased trouble breathing and wbc FINDINGS: The right perihilar area shows increased infiltrate in there now appears to be some degree of cavitation. This is consistent with the urinary cavitating neoplasm or pneumonia. There is a low-grade infiltrate in the left lung base. There is chronic obstructive pulmonary disease. XR/XR chest 1V portable [id number] IMPRESSION: Cavitating mass off the right hilum consistent with either abscess or neoplasm.
[2019-08-14 07:28] LABS: Magnesium 2.3 mg/dL (1.7-2.3); Phosphorus 3.4 mg/dL (2.5-4.5)
[2019-08-14 07:29] LABS: Alanine Aminotransferase 233 U/L (0-41); Albumin Level 2.2 g/dL (3.5-5.2); Alkaline Phosphatase 237 IU/L (40-130); Anion Gap 12.2 (5-19); Aspartate Amino Transferase 190 U/L (0-40); Blood Urea Nitrogen 19 mg/dL (8-23); Calcium 8.8 mg/dL (8.5-10.5); Carbon Dioxide 30 mmol/L (22-29); Chloride 97 mmol/L (98-107); Globulin 4.1 g/dL (1.3-4.6); Glucose 132 mg/dL (65-115); Osmolality Calculated 278 mOsm/kg (285-295); Potassium 4.2 mmol/L (3.5-5.1); Sodium 135 mmol/L (136-145); Total Bilirubin 0.3 mg/dL (0.15-1.2); Total Protein 6.3 g/dL (6.6-8.7)
[2019-08-14] MEDS: budesonide 0.5 mg/2 mL Neb INHALATION ×2 (07:39→19:58)
--- NOTE | 2019-08-14 07:52 | PC.NURSE ---
nurse already notified about oxygen and respiratory standing with me while conducting vitals.
[2019-08-14] MEDS: bumetanide 0.25 mg/mL SDV 10 mL 2 MG IV (09:22)
[2019-08-14] MEDS: haloperidol inj 5 mg/mL INJ 1 mL 1 MG IVP (09:22)
--- NOTE | 2019-08-14 09:47 | PC.NURSE ---
0900 Patient found on side of bed O2 off, cyanotic resp 40 shallow, pulse ox 50 %. O2 put back on. respiratory therapy,charge nurse, and Dr Murrieta called. see new orders. 0940 patient transferred to ICU 7, report given at bedside.
--- NOTE | 2019-08-14 09:52 | PC.NURSE ---
intubated 8 et tubes 24 lip to vent etomadate and succs given per er nurse and fentyl and propofol started at this time og place per icu nurse to vent at this time . monitor s tach rate 146
--- NOTE | 2019-08-14 09:56 | XR_ITS ---
WS: [id number] XR chest 1V portable [id number] REASON FOR EXAM: post inutbation FINDINGS: Post intubation film shows endotracheal tube in good position as well as a feeding tube. Di ffuse inflammatory mass on the right is unchanged. Less cavitation on today's exam. XR/XR chest 1V portable [id number] IMPRESSION: Endotracheal tube and feeding tube in good position.
--- NOTE | 2019-08-14 10:09 | PC.NURSE ---
notified son Kobe of transfer to ICU.
[2019-08-14] MEDS: sodium chloride 0.9% 1,000 ML 50 ML IV (10:23)
[2019-08-14] MEDS: metoprolol tartrate 1 mg/1 mL SDV 5 mL 5 MG IV (10:23)
[2019-08-14] MEDS: propofol 1,000 MG/100 ML INJ 13.8 MG IV ×3 (10:24→20:32)
[2019-08-14 10:59] LABS: Procalcitonin 0.79 ng/mL (0-0.5)
[2019-08-14 11:03] LABS: Influenza A by IFA Negative (Negative); Influenza B by IFA Negative (Negative)
[2019-08-14 11:09] LABS: C Reactive Protein 121.5 mg/L (0.0-4.9)
[2019-08-14] MEDS: acetaminophen 325 mg Tablet 650 MG PO (11:14)
[2019-08-14] MEDS: vancomycin 1,000 MG in sodium chloride 0.9% 250 ML 250 MG IV (11:21)
--- NOTE | 2019-08-14 12:01 | PM.PN ---
Subjective Subjective: Interval history: This morning, patient had episodes of respiratory distress, was 100% FiO2, had nasal retractions, suprasternal retractions, intercostal retractions, belly breathing, bluish discoloration of his extremities. Patient was put on BiPAP, however continued to have respiratory distress, decision was made to transfer to ICU for intubation. I had a discussion with the patient, he agreed with elective intubation for respiratory distress and protecting his airway. In the intensive care unit, Dr. Alcazar intubated the patient, used etomidate, succinyl choline, with positive end tidal CO2, successfully intubated, put on fentanyl, propofol. Patient also had episodes of SVT, likely second to respiratory distress. Patient's family was notified of the situation, shayna Patel. Vitals/I&O/Wt Last Vital Signs Temp 97.6 F 08/14/19 07:51 Pulse 172 H 08/14/19 09:20 Resp 31 H 08/14/19 10:42 BP 154/82 08/14/19 07:51 Pulse Ox 83 L 08/14/19 09:20 08/13/19 08/14/19 08/14/19 22:59 06:59 14:59 Intake Total 60 / 780 Output Total 600 / 600 Balance -540 / 180 Physical Exam Const: COMMON NORMALS: alert GENERAL APPEARANCE: in distress, ill appearing and diaphoretic NUTRITIONAL APPEARANCE: thin ORIENTATION/CONSCIOUSNESS: Yes oriented to person Neck/C-Spine: COMMON NORMALS: no JVD Lymph: LYMPHATIC: no lymphadenopathy noted Chest: COMMONS NORMALS: inspection of chest normal Resp: EFFORT & INSPECTION: Yes tachypneic, Yes respiratory distress, Yes labored, Yes retractions and Yes paradoxical thoraco-abdominal movements AUSCULTATION: diminished lung sounds Cardio: COMMON NORMALS: no JVD, S1 normal heart sound and S2 normal heart sound RATE: tachycardic HEART SOUNDS: S1 normal and S2 normal GI: COMMON NORMALS: normal to inspection, nondistended, normoactive bowel sounds, soft to palpation, non-tender and no hepatosplenomegaly PALPATION: Yes soft and Yes no hepatosplenomegaly Neuro: SENSORIUM/ORIENTATION: Yes alert and Yes oriented to person Urinary Catheter Management^: Bean: Cath Placed During This Visit: yes Reason for Continuing Indwelling Catheter: Acute Urinary Retention or Obstruction Urinary Catheter Date of Insertion: 08/12/19 Urinary Catheter Time of Insertion: 05:09 Data : 08/14/19 06:43 08/14/19 06:43 Micro: Microbiology 08/14/19 11:39 Blood Culture - Preliminary Blood SPECIMEN COLLECTED 08/14/19 10:00 Blood Culture - Preliminary Blood SPECIMEN COLLECTED A&P Assessment and plan (1) ARDS (adult respiratory distress syndrome): -Secondary to pneumonia and influenza a, finish antibiotic treatment and Tamiflu -Patient had acute respiratory breast distress this morning, requiring transfer to the ICU, elective intubation, is intubated, on a ventilator, titrate down FiO2, titrate PEEP, propofol, fentanyl -Protonix for GI prophylaxis -Lovenox for DVT prophylaxis -OG tube, tube feedings -Start broad-spectrum antibiotics vancomycin and Zosyn -Continue Solu-Medrol 60 every 6 -Repeat blood cultures, sputum culture, influenza -Culture showed Gillian tropicalis, continue fluconazole Unfortunately patient has significant lung damage from his acute respiratory distress syndrome and pneumonia, decreased pulmonary reserve from his COPD. Patient is a high risk for prolonged mechanical ventilation, will likely require take tracheostomy and prolonged mechanical ventilation, will benefit from LTAC long-term. Status: Acute Code(s): J80 - Acute respiratory distress syndrome (2) Diastolic CHF: -Given Bumex 2 mg once Status: Acute Code(s): I50.30 - Unspecified diastolic (congestive) heart failure (3) Bilateral pneumonia: -Given acute respiratory distress, I have started the patient on vancomycin and Zosyn -MRSA, flu swabs, blood cultures Status: Acute Qualifiers: Lung location: lower lobe of lung Pneumonia type: due to unspecified organism Qualified Code(s): J18.9 - Pneumonia, unspecified organism Code(s): J18.9 - Pneumonia, unspecified organism (4) Sepsis: Antibiotics as above. Status: Acute Qualifiers: Acute respiratory failure type: with hypoxia Sepsis acute organ dysfunction status: with acute organ dysfunction Sepsis type: sepsis due to unspecified organism Severe sepsis acute organ dysfunction type: acute respiratory failure Severe sepsis shock status: without septic shock Qualified Code(s): A41.9 - Sepsis, unspecified organism; R65.20 - Severe sepsis without septic shock; J96.01 - Acute respiratory failure with hypoxia Code(s): A41.9 - Sepsis, unspecified organism (5) COPD (chronic obstructive pulmonary disease): Very slow improvement. Status: Acute Code(s): J44.9 - Chronic obstructive pulmonary disease, unspecified (6) Drug induced fever: -Patient has not had any fevers in the last 96 hours since antibiotics have been de-escalated -Given acute respiratory distress, I have restarted antibiotic treatment Status: Acute Code(s): R50.2 - Drug induced fever (7) SVT (supraventricular tachycardia): Patient is having episodes of SVT, start low-dose metoprolol Status: Acute Code(s): I47.1 - Supraventricular tachycardia (8) Acute urinary retention: -Patient continues to have episodes of acute urinary retention, high postvoid residual volume -I have tried extensive conservative management, but patient has failed multiple times -At 1 point patient's Bean catheter was removed due to hematuria, likely second to bladder trauma from Bean catheter, patient was able to void, but after a few days continued to have episodes urinary retention, high postvoid residual -Has Flomax -Bean catheter was placed on 08/11/2019, I will keep it in place, with a follow-up with Dr. 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2 SVT (supraventricular tachycardia) I47.1 Acute urinary retention R33.8
[2019-08-14] MEDS: piperacillin-tazobactam 3.375 GM in sodium chloride 0.9% (plus) 50 ML IV ×2 (13:09→20:35)
[2019-08-14] MEDS: enoxaparin 40 mg/0.4 mL Syringe SUBCUT (13:10)
[2019-08-14] MEDS: metroNIDAZOLE IV 500 MG/100 ML PREMIX 100 MG IV ×2 (13:12→22:35)
[2019-08-14] MEDS: lactated ringers 500 ML 999 ML IV (16:37)
[2019-08-14] MEDS: fluconazole premix 200 MG/100 ML PREMIX 100 MG IV (17:32)
--- NOTE | 2019-08-14 23:29 | XRR_ITS ---
PROCEDURE INFORMATION: Exam: XR Chest, 1 View Exam date and time: 08/14/2019 11:30 PM Age: 59 years old Clinical indication: Other: Low o2 sats; Additional info: Low o2 saturation TECHNIQUE: Imaging protocol: XR of the chest Views: 1 view. COMPARISON: CR XR chest 1V portable [id number] 08/14/2019 10:06 AM FINDINGS: Tubes, catheters and devices: Endotracheal tube is in satisfactory position. Nasogastric tube extends into the stomach. Lungs: Extensive right-sided pulmonary infiltrates are not significantly changed from the examination done earlier today. There are changes of emphysema throughout both lungs. Left-sided infiltrates, mainly in the left lower lobe and lingula are not significantly changed. Pleural space: Unremarkable. No pleural effusion. No pneumothorax. Heart/Mediastinum: Unremarkable. No cardiomegaly. Bones/joints: Unremarkable. XR/XR chest 1V portable [id number] IMPRESSION: No change in bilateral pneumonia.
[2019-08-14 23:36] LABS: Glucose Point of Care 173 mg/dL (70-110)
--- NOTE | 2019-08-14 23:39 | PC.NURSE ---
Patient oxygen saturation noted to be 88%. ETtube noted to be 21, previously documented at 23. accessory muscles used. RT at bedside. chest xray taken. tube repositioned per RT.
[2019-08-15] VITALS (40 sets, daily range): BP systolic 80–106; BP diastolic 52–70; PULSE 81–98; RESP 18–28; TEMP 36.1–37.2; O2SAT 90–100
[2019-08-15] MEDS: vancomycin 1,000 MG in sodium chloride 0.9% 250 ML 250 MG IV ×2 (00:11→12:24)
[2019-08-15] MEDS: propofol 1,000 MG/100 ML INJ 13.8 MG IV ×3 (03:07→16:43)
[2019-08-15] MEDS: ipratropium-albuterol 3 mL Neb INHALATION ×6 (03:28→23:12)
[2019-08-15] MEDS: piperacillin-tazobactam 3.375 GM in sodium chloride 0.9% (plus) 50 ML IV ×2 (04:29→13:33)
[2019-08-15 04:42] LABS: ABG PCO2 39.4 mmHg (35-45); ABG PH Result 7.46 (7.35-7.45)
[2019-08-15 04:43] LABS: Base Excess ABG 4.5 mmol/L (-2.0-2.0); Blood Gas Allen Test POS; Blood Gas Drawn By BISJE; Blood Gas Operator Identificat JB; HCO3 ABG 28.5 mmol/L (22-26); Oxygen Device VENT; PO2 ABG 69.4 mmHg (80.0-100.0)
[2019-08-15 04:44] LABS: Arterial Blood Gas Hematocrit 38.9 % (42-52); Blood Gas Sample Site RIGHT RADIAL; Blood Gas Sample Type ARTERIAL; Blood Gas Vent Mode AC
[2019-08-15 05:38] LABS: Basophils # 0.1 10^3/uL (0.0-0.1); Basophils % 0.4 %; Eosinophils % 0.1 %; Hematocrit 31.1 % (42.0-52.0); Hemoglobin 10.1 g/dL (11.7-16.6); Lymphocytes % 2.6 %; Mean Corpuscular HGB Conc 32.5 g/dL (30.0-36.0); Mean Corpuscular Hemoglobin 30.4 pg (28.0-34.0); Mean Corpuscular Volume 93.7 fL (80-94); Mean Platelet Volume 10.7 fL (7.4-10.4); Monocytes # 1.2 10^3/uL (0.2-0.9); Monocytes % 3.1 %; Neutrophils # 33.9 10^3/uL (1.8-7.7); Neutrophils % 90.8 %; Nucleated Red Blood Cells % 0 %; Platelet Count 394 10^3/cmm (130-400); Red Blood Count 3.32 10^6/uL (4.1-5.3); Red Cell Distribution Width 13.9 % (12.1-15.1)
[2019-08-15 06:14] LABS: Magnesium 2.6 mg/dL (1.7-2.3); Phosphorus 4.7 mg/dL (2.5-4.5)
[2019-08-15 06:15] LABS: C Reactive Protein 252.7 mg/L (0.0-4.9); Creatine Phosphokinase 51 U/L (39-308)
[2019-08-15 06:16] LABS: Alanine Aminotransferase 235 U/L (0-41); Albumin Level 1.9 g/dL (3.5-5.2); Alkaline Phosphatase 235 IU/L (40-130); Anion Gap 11.8 (5-19); Aspartate Amino Transferase 91 U/L (0-40); Blood Urea Nitrogen 28 mg/dL (8-23); Carbon Dioxide 30 mmol/L (22-29); Chloride 105 mmol/L (98-107); Globulin 3.8 g/dL (1.3-4.6); Glomerular Filtration Rate 98.3 mL/min (90-130); Glucose 172 mg/dL (65-115); Osmolality Calculated 297 mOsm/kg (285-295); Potassium 3.8 mmol/L (3.5-5.1); Sodium 143 mmol/L (136-145); Total Bilirubin 0.5 mg/dL (0.15-1.2); Total Protein 5.7 g/dL (6.6-8.7)
[2019-08-15] MEDS: metroNIDAZOLE IV 500 MG/100 ML PREMIX 100 MG IV ×2 (06:22→14:53)
[2019-08-15 06:48] LABS: Slide Review Slide Review Perform; White Blood Count 37.4 10^3/uL (4.0-10.0)
--- NOTE | 2019-08-15 07:00 | XR_ITS ---
WS: [id number] CHEST XRAY TECHNIQUE: Portable chest. CLINICAL INFORMATION: sob COMPARISON: None. FINDINGS: Endotracheal tube with tip above the chuck measuring 5.1 CCM. Enteric tube tip below the d iaphragm. Heart: Normal cardiac silhouette. Lungs: Chronic emphysematous changes. Extensive consolidated right midlung pulmonary infiltrates unch anged from previous. Slight patchy left perihilar infiltrates. Findings compatible with pneumonia. Bones: Normal visualized bony structures. XR/XR chest 1V portable [id number] IMPRESSION: Stable dense consolidation in the right midlung consistent with pneumonia.
[2019-08-15] MEDS: budesonide 0.5 mg/2 mL Neb INHALATION ×2 (08:06→20:01)
--- NOTE | 2019-08-15 08:06 | PC.PT ---
PT note; pt transferred to ICU;has not been participating meaningfully with PT attempts;Discharge PT until further orders received
--- NOTE | 2019-08-15 09:54 | US_ITS ---
WS: [id number] ULTRASOUND ABDOMEN LIMITED CLINICAL INFORMATION: elevated LFT's COMPARISON: None. FINDINGS: Liver Size: Mild enlargement Craniocaudal length: 17.3 cm. Echogenicity: Normal. Surface nodularity: None. Mass (size and location): None. Bile ducts Intrahepatic ducts: Normal. Common bile duct diameter: 0.2 cm. Gallbladder Normal. Gallstones: None. Gallbladder sludge: None. Gallbladder wall thickening: None. Pericholecystic fluid: None. Sonographic Patterson sign: Absent. Pancreas Not well seen Spleen Splenomegaly: None. Craniocaudal length: cm. Right kidney: Normal. Hydronephrosis: None. Size: 11.7 cm x 5.6 cm x 4.3 cm. Abdominal aorta and IVC Visualized portions are normal. Ascites: None. US/US gall bladder [id number] IMPRESSION: Mild hepatomegaly. Otherwise normal abdominal ultrasound.
[2019-08-15] MEDS: pantoprazole 40 mg SDV IVP (09:56)
[2019-08-15] MEDS: tamsulosin 0.4 mg Capsule PO (09:56)
--- NOTE | 2019-08-15 10:04 | PM.PN ---
Subjective Subjective: Interval history: José is sedated on the ventilator. Events of last week reviewed. Son present Medications: Reviewed: Yes Vitals/I&O/Wt Last Vital Signs Temp 97.2 F L 08/15/19 08:00 Pulse 85 08/15/19 08:15 Resp 25 H 08/15/19 08:11 BP 91/61 08/15/19 08:00 Pulse Ox 93 08/15/19 08:11 08/14/19 08/15/19 08/15/19 22:59 06:59 14:59 Intake Total 428.465 / 678.465 535.75 / 1214.215 Output Total 1850 / 1850 Balance -1421.535 / -1171.535 535.75 / -635.785 Physical Exam Narrative: EXAM NARRATIVE: General exam is sedated on the ventilator Cardiovascular regular rate and rhythm Lungs diminished breath sounds but no wheezing or crackles Abdomen is soft, positive bowel sounds Extremities no cyanosis clubbing or edema Urinary Catheter Management^: Bean: Cath Placed During This Visit: yes Reason for Continuing Indwelling Catheter: Accurate Measurement of Urinary Output in Critically Ill Patients Urinary Catheter Date of Insertion: 08/12/19 Urinary Catheter Time of Insertion: 05:09 Data : 08/15/19 04:48 08/15/19 04:48 Micro: Microbiology 08/14/19 13:15 Gram Stain - Final Sputum - Endotracheal Tube Aspirate Sputum Culture - Preliminary 08/14/19 11:39 Blood Culture - Preliminary Blood SPECIMEN COLLECTED 08/14/19 10:00 Blood Culture - Preliminary Blood SPECIMEN COLLECTED A&P Assessment and plan (1) ARDS (adult respiratory distress syndrome): Patient was reintubated yesterday, secondary to respiratory distress. Broad-spectrum antibiotics were restarted. Antifungal was continued.(Sputum eventually grew Gillian tropicalis) He was placed back on IV steroids. Secondary to worsening and reintubation there was concern he may require long-term care hospital Status: Acute Code(s): J80 - Acute respiratory distress syndrome (2) Diastolic CHF: Appears compensated Status: Acute Code(s): I50.30 - Unspecified diastolic (congestive) heart failure (3) Bilateral pneumonia: Currently on vancomycin, Zosyn, and Flagyl IV as well as fluconazole Status: Acute Qualifiers: Lung location: lower lobe of lung Pneumonia type: due to unspecified organism Qualified Code(s): J18.9 - Pneumonia, unspecified organism Code(s): J18.9 - Pneumonia, unspecified organism (4) Sepsis: Antibiotics as above. Status: Acute Qualifiers: Acute respiratory failure type: with hypoxia Sepsis acute organ dysfunction status: with acute organ dysfunction Sepsis type: sepsis due to unspecified organism Severe sepsis acute organ dysfunction type: acute respiratory failure Severe sepsis shock status: without septic shock Qualified Code(s): A41.9 - Sepsis, unspecified organism; R65.20 - Severe sepsis without septic shock; J96.01 - Acute respiratory failure with hypoxia Code(s): A41.9 - Sepsis, unspecified organism (5) COPD (chronic obstructive pulmonary disease): Worsened Thursday. Steroids were restarted but he is currently not wheezing. Discontinue IV steroids Status: Acute Code(s): J44.9 - Chronic obstructive pulmonary disease, unspecified (6) Drug induced fever: Secondary to worsening antibiotics will be started. Unknown if fever was due to drugs Status: Acute Code(s): R50.2 - Drug induced fever (7) SVT (supraventricular tachycardia): Started on low-dose metoprolol, continue Status: Acute Code(s): I47.1 - Supraventricular tachycardia (8) Acute urinary retention: Continue Bean Continue Flomax Will need outpatient follow-up with urology Status: Acute Code(s): R33.8 - Other retention of urine Additional A&P Information Transaminitis, still present. Hepatitis panel, gallbladder ultrasound ordered Leukocytosis. Check C. difficile toxin. He still has some diarrhea. 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 [facility] 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 Drug induced fever R50.2 SVT (supraventricular tachycardia) I47.1 Acute urinary retention R33.8
[2019-08-15] MEDS: metoprolol tartrate 25 mg Tablet 12.5 MG PO (10:11)
[2019-08-15 11:03] LABS: Vancomycin Trough 19.2 ug/mL (10-15)
[2019-08-15 11:27] LABS: Hepatitis A Antibody IgM. Non-Reactive (Nonreactive); Hepatitis B Core IgM Non-Reactive (Nonreactive); Hepatitis B Surface Antigen. Non-Reactive (Nonreactive); Hepatitis C Virus Antibody Non-Reactive (Nonreactive)
[2019-08-15] MEDS: enoxaparin 40 mg/0.4 mL Syringe SUBCUT (12:24)
--- NOTE | 2019-08-15 13:00 | XR_ITS ---
WS: [id number] CHEST XRAY TECHNIQUE: Portable chest. CLINICAL INFORMATION: PICC LINE INSERTION COMPARISON: August 15, 2019 FINDINGS: Right PICC line with tip in distal SVC. No pneumothorax. Stable unchanged right pneumonia. Endotrache al tube. Enteric tube. XR/XR chest 1V portable [id number] IMPRESSION: Right PICC line tip in distal SVC. Unchanged right pneumonia.
--- NOTE | 2019-08-15 13:30 | SUR.PREOP ---
PICC LINE TIMEOUT Time out for picc line completed. see intervention list.
[2019-08-15 13:41] LABS: ABG PCO2 39.4 mmHg (35-45); ABG PH Result 7.47 (7.35-7.45); Base Excess ABG 4.5 mmol/L (-2.0-2.0); HCO3 ABG 28.5 mmol/L (22-26); PO2 ABG 69.4 mmHg (80.0-100.0)
[2019-08-15 13:42] LABS: Arterial Blood Gas Hematocrit 38.9 % (42-52); Blood Gas Allen Test pos; Fractionated Inspired Oxygen 0.6 %; Oxygen Device vent
[2019-08-15] MEDS: fluconazole premix 200 MG/100 ML PREMIX 100 MG IV (16:06)
[2019-08-15] MEDS: sodium chloride 0.9% 1,000 ML 50 ML IV (16:08)
--- NOTE | 2019-08-15 18:18 | PM.PN ---
Subjective Subjective: Interval history: The patient was seen and examined. He is intubated and sedated. The patient was initially admitted to the hospital with multilobar pneumonia and managed with high flow nasal cannula. The patient had a prolonged hospital stay due to ongoing need for oxygen as well as lack of insurance. The patient unfortunately got intubated and was brought to the ICU. I have performed an extensive review of his antibiotic regimen. The patient received cefepime on July 23. He also received a dose of ceftriaxone the same night. The patient received azithromycin from July 25 to July 30. The patient received Zosyn from July 24 to August 06. Levaquin from August 06 to August 09 Vancomycin July 24 and Fluconazole August 04 to August 14 Radiologic evaluation: The patient presented to the hospital initially with multilobar pneumonia. The initial chest x-ray reveals bilateral diffuse reticulonodular opacity. CT scan obtained at that time also revealed bilateral diffuse infiltrate. The recent chest x-ray obtained yesterday and today shows significant improvement in left lung opacity. There is also significant improvement in the right upper and lower lung zone partially. The predominant lesion that the patient has now is right midlung zone. This would be consistent with a new hospital-acquired pneumonia. I performed a bronchoscopy. There was diffuse erythema in bilateral airways. There was visible pus in the right bronchus intermedius. Bronchoalveolar lavage was performed from the right middle lobe and sent for different studies including work-up for Legionella. Microbiologic data: Sputum culture before had grew Gillian tropicalis however I believe this is likely to be a colonizer. The patient was treated with fluconazole however his symptoms continue to get worse with worsening leukocytosis, hypoxia and respiratory failure requiring intubation. Medications: Reviewed: Yes Vitals/I&O/Wt Last Vital Signs Temp 97.2 F L 08/15/19 08:00 Pulse 91 08/15/19 16:00 Resp 26 H 08/15/19 17:53 BP 99/65 08/15/19 16:00 Pulse Ox 99 08/15/19 16:00 08/15/19 08/15/19 08/15/19 06:59 14:59 22:59 Intake Total 1535.75 / 2214.215 250 / 250 187.815 / 437.815 Balance 1535.75 / 364.215 250 / 250 187.815 / 437.815 Physical Exam Narrative: EXAM NARRATIVE: General: The patient is intubated and sedated Neck: No JVD, no cervical or supraclavicular lymphadenopathy. Respiratory: Auscultation: Diffuse crackles at the anterior hemithorax, no significant wheezing occasional rhonchi Cardiovascular: Regular rate and rhythm, S1-S2 present, no murmur Abdomen: Soft, nondistended, positive bowel sound Skin: No rash Neuro: Patient is intubated and sedated Urinary Catheter Management^: Bean: Cath Placed During This Visit: yes Reason for Continuing Indwelling Catheter: Accurate Measurement of Urinary Output in Critically Ill Patients Urinary Catheter Date of Insertion: 08/12/19 Urinary Catheter Time of Insertion: 05:09 Data : 08/15/19 04:48 08/15/19 04:48 Micro: Microbiology 08/14/19 10:10 MRSA Culture - Final Nose 08/14/19 11:39 Blood Culture - Preliminary Blood NEGATIVE TO DATE 08/14/19 10:00 Blood Culture - Preliminary Blood NEGATIVE TO DATE 08/14/19 13:15 Gram Stain - Final Sputum - Endotracheal Tube Aspirate Sputum Culture - Preliminary Other data: I have reviewed the patient's laboratory, microbiologic and radiologic data. Some of this is described in the history of present illness. His MRSA nasal PCR was negative yesterday. A&P Assessment and plan (1) Hospital-acquired pneumonia: The patient has developed new infiltrate in the right midlung zone associated with worsening hypoxia and eventually requiring intubation mechanical ventilation. There is worsening leukocytosis. All of this is consistent with a diagnosis of hospital-acquired pneumonia. The patient initially presented with multilobar pneumonia which has gotten significantly better radiologically. 1 concern I have is whether the patient has partially treated Legionella pneumonia. The general pneumonia is the second common cause of pneumonia in patients that are admitted to intensive care unit. The patient did receive azithromycin and levofloxacin however patients with Legionella pneumonia requires 3 weeks of therapy. The patient has received Zosyn for more than 15 days. This is likely that the patient has an organism that is resistant to Zosyn. In the setting of MRSA nasal PCR being negative, I do have concerns for gram-negative organism infection which is likely to be drug-resistant. The patient's significant emphysema also predisposes him to a gram-negative infection. Going to start the patient on imipenem. I will cover him with Zyvox for the time being. Also levofloxacin to the work-up for Legionella comes back. I do not believe the patient has a fungal pneumonia and will discontinue the fluconazole. We will follow-up microbiologic data from the bronchoscopy sample. The patient is currently empirically getting treated for C. difficile associated disease. If the PCR is negative we will discontinue the oral vancomycin. Status: Acute Code(s): J18.9 - Pneumonia, unspecified organism; Y95 - Nosocomial condition (2) Respiratory failure: Patient is currently ventilator dependent. He will likely stay intubated for a couple of days before he could be evaluated again for possible extubation. We will continue with spontaneous breathing trial as soon as he is ready for that. 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
--- NOTE | 2019-08-15 18:35 | PM.ACPR ---
Procedure/Consent Time out: Time Out Performed: Yes Consent: Consent for Procedure: Consent obtained from other (indicate) Procedure Narrative: Name of the procedure: Bronchoscopy with bronchoalveolar lavage. Indication: Acute hypoxic respiratory failure in the setting of pneumonia requiring intubation. Medication: The patient is on intravenous propofol and Precedex drip. Description of the procedure: The patient is currently intubated for acute hypoxic respiratory failure. 1% lidocaine 5 mL was introduced through the ET tube. The bronchoscope was as far advanced through the ET tube to the chuck was visualized. In a systematic manner bilateral airways were examined. There was erythema present throughout bilateral airways. The left mainstem bronchus, left upper lobe and left lower lobe bronchi appeared patent without any endobronchial lesion or significant secretion. The bronchoscope was then advanced to the right mainstem bronchus. Right mainstem bronchus and right upper lobe bronchus appeared patent. There was visible pus in the right bronchus intermedius. This was suctioned out. There was diffuse erythema in both lungs. Bronchoalveolar lavage was performed from the medial segment of right middle lobe. 60 cc of normal saline was instilled, 20mL of pus looking return was obtained. There is no mucous plug present. Specimen was sent for Gram stain and culture, fungal stain and culture, Legionella antigen and Legionella culture. Complications: No immediate complication was noted. Postprocedure chest x-ray was pending. Acute Procedures Epistaxis Control: Time out performed: Yes
--- NOTE | 2019-08-15 18:37 | XRR_ITS ---
PROCEDURE INFORMATION: Exam: XR Chest, 1 View Exam date and time: 08/15/2019 6:38 PM Age: 59 years old Clinical indication: Device placement; Other: Post bronch; Prior surgery; Additional info: Post bronchoscopy TECHNIQUE: Imaging protocol: XR of the chest Views: 1 view. COMPARISON: CR XR chest 1V portable [id number] 08/15/2019 2:13 PM FINDINGS: Tubes, catheters and devices: The ETT, nasogastric tube and right PICC line appear stable in position. Lungs: Right perihilar opacity is again noted. Chronic interstitial changes are again seen in both lungs. Pleural space: No pneumothorax is seen. Heart/Mediastinum: Unremarkable. No cardiomegaly. Bones/joints: No acute fracture. XR/XR chest 1V portable [id number] IMPRESSION: No significant change since the prior study. No pneumothorax.
--- NOTE | 2019-08-15 21:47 | PC.NURSE ---
Wasted 53ml of IV Fentanyl that was stopped on 08/14/2019. Witnessed by Mellisa Sharif, discharge coordinator nurse for shift. Unable to waste on IV spreadsheet since medication DC'ed.
[2019-08-15] MEDS: acetaminophen 325 mg Tablet 650 MG PO (23:58)
[2019-08-16] VITALS (41 sets, daily range): BP systolic 80–121; BP diastolic 44–64; PULSE 80–109; RESP 14–44; TEMP 36.7–38; O2SAT 84–96
[2019-08-16] MEDS: linezolid premix 600 MG/300 ML PREMIX 300 MG IV ×2 (00:12→15:17)
[2019-08-16] MEDS: propofol 1,000 MG/100 ML INJ 17.2 MG IV ×5 (00:18→22:30)
[2019-08-16] MEDS: midazolam 1 mg/mL INJ 2 mL 2 MG IVP ×2 (01:02→16:10)
--- NOTE | 2019-08-16 01:23 | PC.NURSE ---
2350 upon entering room nurse noted that patient was diaphoretic and very warm to the touch. rectal temperature was 100.1. PRN order of Tylenol given in NG. Alarm for high respiratory rate per ventilator. respiratory at bedside and suctioned patient. 0049 readdressed patient temperature per rectal temp of 100.4. fan placed by patient to help decrease temperature. patient respiratory rate of 40bpm over ventilator. spoke with and verbal order for fentanyl drip to help sedate patient. 0054 Fentanyl drip started, patient breathing 60bpm over the ventilator. verbal order from for 2mg versed for patient comfort. 0100 Blood pressure reading of 88/50. verbal order for levophed drip by . 0145 Patient is currently resting comfortably. vital signs HR:91 O2:94 RR: 28 BP: 93/57 temp: 99.1 Normal saline running at 50ml/hr. propofol running at 50mcg/kg/min. Precedex running at 0.7mcg/kg/hr. fentanyl running at 50mcg/hr. Levophed running at 2mcg/min.
--- NOTE | 2019-08-16 01:40 | PM.EVENT ---
Event Note Event Note: Called earlier due to patient sedation and increasing respiratory rate. Respiratory rate was in the 40s. He was on propofol and Precedex. I resumed fentanyl drip which was already on his profile. This did not help any. Eventually gave him a dose of IV push Versed 2 mg. With this his heart rate improved significantly. We will add as needed Versed. Patient's oxygenation did drop a little bit with tachypnea but vitals were otherwise okay.Current respirations are down to upper 20s low 30s, saturations 96% and pulse 92 but blood pressure 90s over 50s.
[2019-08-16] MEDS: ipratropium-albuterol 3 mL Neb INHALATION ×6 (03:32→23:56)
[2019-08-16 04:20] LABS: Basophils # 0.1 10^3/uL (0.0-0.1); Basophils % 0.3 %; Hematocrit 30.9 % (42.0-52.0); Hemoglobin 9.8 g/dL (11.7-16.6); Lymphocytes # 1.1 10^3/uL (0.8-4.8); Lymphocytes % 2.3 %; Mean Corpuscular HGB Conc 31.7 g/dL (30.0-36.0); Mean Corpuscular Hemoglobin 30.8 pg (28.0-34.0); Mean Corpuscular Volume 97.2 fL (80-94); Mean Platelet Volume 10.8 fL (7.4-10.4); Monocytes # 1.4 10^3/uL (0.2-0.9); Neutrophils # 41.8 10^3/uL (1.8-7.7); Neutrophils % 88.7 %; Nucleated Red Blood Cells % 0.1 %; Platelet Count 444 10^3/cmm (130-400); Red Blood Count 3.18 10^6/uL (4.1-5.3); Red Cell Distribution Width 14.3 % (12.1-15.1)
[2019-08-16 04:38] LABS: Anion Gap 14.3 (5-19); Blood Urea Nitrogen 37 mg/dL (8-23); Carbon Dioxide 26 mmol/L (22-29); Chloride 109 mmol/L (98-107); Glucose 132 mg/dL (65-115); Osmolality Calculated 299 mOsm/kg (285-295); Potassium 4.3 mmol/L (3.5-5.1); Sodium 145 mmol/L (136-145)
[2019-08-16 05:09] LABS: White Blood Count 47.1 10^3/uL (4.0-10.0)
[2019-08-16 05:10] LABS: Slide Review Slide Review Perform
[2019-08-16] MEDS: levoFLOXacin 750 mg Tablet PO (05:26)
[2019-08-16 05:32] LABS: ABG PCO2 37.7 mmHg (35-45); ABG PH Result 7.47 (7.35-7.45); Arterial Blood Gas Hematocrit 31.2 % (42-52); Base Excess ABG 3.3 mmol/L (-2.0-2.0); Blood Gas Allen Test Pos; Blood Gas Sample Site Radial, right; Blood Gas Sample Type Arterial; Blood Gas Tidal Volume 0.4; HCO3 ABG 27.2 mmol/L (22-26); Oxygen Device VENT; PO2 ABG 70.6 mmHg (80.0-100.0)
[2019-08-16 05:40] LABS: Absolute Segmented Neutrophil 43.8 10/cmm (1.6-7.1); Band Neutrophils Absolute 0.5 10^3/cmm (0.0-1.2); Lymphocytes 1 %; Monocytes Absolute 1.4 10^3/cmm (0.1-0.6); Segmented Neutrophils 93 %; Total Cells Counted 100 (0-100)
[2019-08-16 05:41] LABS: Anisocytosis 1+; Platelet Estimate Normal (Normal); Polychromasia Trace
--- NOTE | 2019-08-16 07:31 | XR_ITS ---
WS: [id number] Portable AP upright chest, 08/16/2019 Clinical Data: resp failure Comparison: Portable chest, 08/15/2019 Findings: The right lung opacity has increased compared to yesterday. This probably represents worsen ing pneumonia. The diaphragms are flattened. There is interstitial change throughout the left lung. T he heart size is normal. The endotracheal tube, nasogastric tube and right PICC line remain in the sa me position. Monitor leads on the chest wall. XR/XR chest 1V portable [id number] Impression: 1. Increasing opacity in right lung which may represent worsening pneumonia. 2. No change in position of multiple tubes.
[2019-08-16] MEDS: budesonide 0.5 mg/2 mL Neb INHALATION ×2 (08:04→20:58)
--- NOTE | 2019-08-16 08:18 | PM.PN ---
Subjective Subjective: Interval history: José is sedated on the ventilator. Fentanyl was added last night secondary to severe tachypnea. Norepinephrine was added shortly after for some lower blood pressures. Medications: Reviewed: Yes Vitals/I&O/Wt Last Vital Signs Temp 99.1 F 08/16/19 04:00 Pulse 93 08/16/19 08:09 Resp 31 H 08/16/19 08:10 BP 94/55 08/16/19 04:00 Pulse Ox 92 08/16/19 08:06 08/15/19 08/16/19 08/16/19 22:59 06:59 14:59 Intake Total 287.815 / 786.911 0999.503 / 1824.318 Output Total 1125 / 1125 350 / 1475 Balance -837.185 / -587.185 936.503 / 349.318 Physical Exam Narrative: EXAM NARRATIVE: General exam is sedated on the ventilator Cardiovascular regular rate and rhythm Lungs diminished breath sounds but no wheezing or crackles Abdomen is soft, positive bowel sounds Extremities no cyanosis clubbing. Lower extremities with 1+ edema Urinary Catheter Management^: Bean: Cath Placed During This Visit: yes Reason for Continuing Indwelling Catheter: Accurate Measurement of Urinary Output in Critically Ill Patients Urinary Catheter Date of Insertion: 08/12/19 Urinary Catheter Time of Insertion: 05:09 Data : 08/16/19 03:40 08/16/19 03:40 Micro: Microbiology 08/14/19 13:15 Gram Stain - Final Sputum - Endotracheal Tube Aspirate Sputum Culture - Final 08/15/19 18:10 Legionella Urinary Antigen - Final Urine Ureter 08/14/19 10:10 MRSA Culture - Final Nose 08/14/19 11:39 Blood Culture - Preliminary Blood NEGATIVE TO DATE 08/14/19 10:00 Blood Culture - Preliminary Blood NEGATIVE TO DATE A&P Assessment and plan (1) ARDS (adult respiratory distress syndrome): Patient was reintubated August 13 , secondary to respiratory distress. Currently on linezolid, Primaxin, Levaquin He was placed back on IV steroids. Secondary to worsening and reintubation there was concern he may require long-term care hospital Status: Acute Code(s): J80 - Acute respiratory distress syndrome (2) Diastolic CHF: Discontinue IV fluids secondary to some edema noted peripherally. Consider dose of furosemide later, if blood pressure tolerates. Status: Acute Code(s): I50.30 - Unspecified diastolic (congestive) heart failure (3) Bilateral pneumonia: Currently on linezolid, Primaxin, Levaquin Bronchoscopy was performed yesterday. Awaiting cultures Status: Acute Qualifiers: Lung location: lower lobe of lung Pneumonia type: due to unspecified organism Qualified Code(s): J18.9 - Pneumonia, unspecified organism Code(s): J18.9 - Pneumonia, unspecified organism (4) Sepsis: Antibiotics as above. Some hypotension, placed on low level of pressors. This may be secondary to the addition of fentanyl Status: Acute Qualifiers: Acute respiratory failure type: with hypoxia Sepsis acute organ dysfunction status: with acute organ dysfunction Sepsis type: sepsis due to unspecified organism Severe sepsis acute organ dysfunction type: acute respiratory failure Severe sepsis shock status: without septic shock Qualified Code(s): A41.9 - Sepsis, unspecified organism; R65.20 - Severe sepsis without septic shock; J96.01 - Acute respiratory failure with hypoxia Code(s): A41.9 - Sepsis, unspecified organism (5) COPD (chronic obstructive pulmonary disease): No current wheezing. Steroids have been discontinued. Status: Acute Code(s): J44.9 - Chronic obstructive pulmonary disease, unspecified (6) Drug induced fever: Secondary to worsening antibiotics will be started. Unknown if fever was due to drugs Status: Acute Code(s): R50.2 - Drug induced fever (7) SVT (supraventricular tachycardia): Started on low-dose metoprolol, continue if tolerated by blood pressure Status: Acute Code(s): I47.1 - Supraventricular tachycardia (8) Acute urinary retention: Continue Bean Continue Flomax Will need outpatient follow-up with urology Status: Acute Code(s): R33.8 - Other retention of urine Additional A&P Information Transaminitis, still present. Hepatitis panel negative, gallbladder ultrasound with only mild hepatomegaly Leukocytosis. C. difficile toxin is still pending. He has been prophylactically placed on vancomycin by mouth DVT prophylaxis with Lovenox May need long-term care placement Attestations Medical Necessity Statement*: Needs continued hospitalization in the ICU secondary to respiratory failure requiring mechanical ventilation Critical Care Time: 36 minutes spent in critical care time, reviewing ventilator settings, patient examination, etc. Coding Level of Care Code Acute Pressure Testing Technician for [facility] 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 Drug induced fever R50.2 SVT (supraventricular tachycardia) I47.1 Acute urinary retention R33.8
[2019-08-16] MEDS: tamsulosin 0.4 mg Capsule PO (09:07)
[2019-08-16] MEDS: pantoprazole 40 mg SDV IVP (09:07)
[2019-08-16] MEDS: acetaminophen 325 mg Tablet 650 MG PO (11:52)
--- NOTE | 2019-08-16 11:52 | XR_ITS ---
WS: [id number] Portable AP upright chest, 08/16/2019, 1227 hours. Clinical Data: hemoptysis Comparison: Portable chest, 08/16/2019, 0737 hours Findings: The patchy opacity in the right midlung has not changed. There is still lung superior to th e opacity and minimal amount of aerated lung inferior to the opacity. The left lung shows no changes. The heart size is normal. The right PICC line, endotracheal tube and nasogastric tube remain in posi tion. Monitor leads are on the chest wall. XR/XR chest 1V portable [id number] Impression: 1. No change in dense right lung opacity. 2. No change in multiple tubes.
[2019-08-16] MEDS: succinylcholine 20 mg/mL SDV 10mL 100 MG IVP (12:00)
--- NOTE | 2019-08-16 12:19 | P.EN_ITS ---
Event Note Event Note: Patient had an episode of hemoptysis. Blood pressure decreased, respiratory rate increased. Pulmonary was available, paralysis was initiated with improvement in the patient's condition. Norepinephrine started. Portable chest x-ray demonstrates possible possible evolving cavity right lung. Pul monary considering bronchoscopy this afternoon. For now patient appears stabilized.
[2019-08-16] MEDS: sodium chloride 0.9% 1,000 ML 50 ML IV (15:17)
[2019-08-16] MEDS: EPINEPHrine 0.1 mg/mL SYR 10 mL 1 MG IVP (15:50)
[2019-08-16] MEDS: lidocaine 1% INJ 20 mL 10 ML IV (16:10)
--- NOTE | 2019-08-16 16:39 | P.PCN_ITS ---
Procedure/Consent Time out: Time Out Performed: Yes Consent: Consent for Procedure: Consent obtained from other (indicate) Procedure Narrative: Name of the procedure: Bronchoscopy with possible endobronchial biopsies and bronchoalveolar lavage. Indication: Hemoptysis Medication: The patient is on intravenous fentanyl, propofol drip. Fentanyl 100 mcg Description of the procedure: Consent was obtained for the bronchoscopy procedure. The patient was intubated for acute hypoxic respiratory failure. 1% lidocaine 5 mL was introduced through the ET tube. The bronchoscope was introduced through the ET tube to the chuck was visualized. Chuck was sharp. Erythema was noted. In a systematic manner the bronchoscope was then advanced bilateral airways. The left mainstem bronchus, left upper lobe, lingular segment and left lower lobe bronchi appeared patent. Bloody secretion was noted throughout the left lung which was suctioned out. There is no active bleeding. The bronchoscope was then introduced into the right mainstem bronchus. There is significant amount of bloody secretion that was suctioned out. No active bleeding was noted. Following clearance of the bloody secretion, profound bronc hial mucosal inflammation with desquamation, erythema and swelling was noted. There was narrowing of the right upper lobe bronchus entrance. The bronchoscope was passed through the narrowed airway. There was significant inflammation and irregular mucosal lesion with almost complete occlusion of the anterior segment bronchus. There is also narrowing with irregular mucosa of the posterior segmen t bronchus. Some of the area appeared whitish and grayish. The apical segmental bronchus appeared patent. The bronchus intermedius also had diffuse committed inflamed airways. There was some narrowing but the bronchoscope could be passed easily. The right middle lobe and lower lobe bronchi are patent without any endobronchial lesion or active bleeding. Bloody secretion was noted throughout the airway. Endobronchial biopsies are obtained from the right upper lobe, anterior segment of the right upper lobe and right bronchus intermedius. Multiple samples were obtained. This was put in formalin. Diluted epinephrine and cold saline were injected through the bronchoscope prior to obtaining the endobronchial biopsies. Bronchoalveolar lavage was performed from the anterior segment of the right upper lobe. Samples: 1. Endobronchial biopsies are sent for histopathology. 2. The bronchoalveolar lavage was sent for Gram stain and culture, fungal stain and culture, AFB stain and culture, cytology. Complications: No immediate complication was noted. Acute Procedures Epistaxis Control: Time out performed: Yes
--- NOTE | 2019-08-16 19:57 | PC.NURSE ---
1146 Pt began coughing. Repositioned pt to right side. Pt began coughing harder and more frequent. Red blood noted in tube. O2 sats slightly dropped. RT called into room while this nurse called Dr Richar Florian. Dr Florian arrived within minutes to assess pt. Dr Nuno arrived shortly after. Orders received. Both physicians remained at bedside. Bronch scheduled for 1600. Kobe, son, also at bedside. Pt stabilized.
--- NOTE | 2019-08-16 22:21 | P.PN_ITS ---
Subjective Subjective: Interval history: The patient was seen and examined. He continues to be intubated and require mechanical ventilation with high FiO2. The patient today had bloody ET tube secretion when he was moved. The chest x-ray obtained at that time revealed dense consolidation of the right mid and lower lung zone. Compared to the chest x-ray obtained on August 13 there is development of lucency within the infiltrate which would be consistent with a developing cavitary lesion possibly secondary to necrotizing pneumonia. The patient at that time was tachypneic with significant hyperinflation and increased positive intrathoracic pressure resulting in reducing return and hypotension requiring pressor therapy. The patient was paralyzed, sedated with increased fentanyl dose. Subsequently, the patient did better. He was put on pressure support ventilation and maintained a good minute ventilation and was much more comfortable. Repeat bronchoscopy today revealed significant desquamation of bronchial mucosa. There was profound inflammation, mucosal swelling and desquamation of the right upper lobe bronchus. The entrance to the segmental airway was significantly narrowed by irregular mucosa. Endobronchial biopsies and bronchoalveolar lavage was obtained. There are also areas of whitish to grayish lesion which could be secondary to candidal infection. Medications: Reviewed: Yes Vitals/I&O/Wt Last Vital Signs Temp 98.4 F 08/16/19 18:00 Pulse 81 08/16/19 20:59 Resp 24 H 08/16/19 20:59 BP 97/61 08/16/19 20:00 Pulse Ox 91 08/16/19 20:59 08/16/19 08/16/19 08/16/19 06:59 14:59 22:59 Intake Total 1286.503 / 4724.171 7196.484 / 1174.484 730.325 / 1904.809 Output Total 350 / 1475 500 / 500 Balance 936.503 / 268.898 5789.484 / 1174.484 230.325 / 1404.809 Physical Exam Narrative: EXAM NARRATIVE: General: The patient is intubated and sedated Neck: No JVD, no cervical or supraclavicular lymphadenopathy. Respiratory: Auscultation: Diffuse crackles at the anterior hemithorax on the right side, no significant wheezing occasional rhonchi Cardiovascular: Regular rate and rhythm, S1-S2 present, no murmur Abdomen: Soft, nondistended, positive bowel sound Skin: No rash Neuro: Patient is intubated and sedated Urinary Catheter Management^: Bean: Cath Placed During This Visit: yes Reason for Continuing Indwelling Catheter: Accurate Measurement of Urinary Output in Critically Ill Patients Urinary Catheter Date of Insertion: 08/12/19 Urinary Catheter Time of Insertion: 05:09 Data : 08/16/19 03:40 08/16/19 03:40 Micro: Microbiology 08/15/19 17:25 Gram Stain - Final Body Fluids - Bronchial 08/14/19 13:15 Gram Stain - Final Sputum - Endotracheal Tube Aspirate Sputum Culture - Final 08/15/19 18:10 Legionella Urinary Antigen - Final Urine Ureter Attestation for Other Data: I personally reviewed and interpreted the following: Other data: Laboratory, microbiologic and radiologic data. The patient continues to have worsening leukocytosis. The chest x-ray revealed developing cavitary lesion in the right midlung zone. Bronchoalveolar lavage fluid culture is negative so far. A&P Assessment and plan (1) Hospital-acquired pneumonia: The patient has developed new infiltrate in the right midlung zone associated with worsening hypoxia and eventually requiring intubation mechanical ventilation. There is worsening leukocytosis. All of this is consistent with a diagnosis of hospital-acquired pneumonia. The patient initially presented with multilobar pneumonia which has gotten significantly better radiologically. The hemoptysis is likely secondary to discoloration of the above-mentioned bronchial tree as well as developing cavitary pneumonia. It was strong suspicion for resistant gram-negative infection or MRSA infection. The bronchoalveolar fluid lavage is negative so far. No specific drainage will be necessary if the patient develops a lung abscess which would not be unusual in the setting of significant centrilobular emphysema that the patient has. This is expected to drain through the bronchial tree. We will continue with broad-spectrum antibiotic for the time being also add caspofungin for possible candidal pneumonia. Although this is very rare the histopathology analysis of the endobronchial biopsy will shed more light into the etiology of this. I also have concern for a primary pulmonary malignancy. The patient is stable on the current ventilator setting. Any significant tachypnea will result in air trapping, hyperinflation of the lung and increased intrathoracic pressure resulting in diffuse venous return and low blood pressure. We will continue the supportive therapy for the time being. The plan was discussed in detail with the son. If the patient does not make significant recovery in the next 48 to 72 hours we will discuss the plan of care. Status: Acute Code(s): J18.9 - Pneumonia, unspecified organism; Y95 - Nosocomial condition (2) Respiratory failure: The patient continues to require ventilatory support. I expect him to require ventilatory support for at least 48 to 72 hours of this point. His antibiotic regimen will be de-escalated based on microbiology data. Status: Acute Code(s): J96.90 - Respiratory failure, unspecified, unspecified whether with hypoxia or hypercapnia Attestations Medical Necessity Statement*: Will defer to the primary team Coding Level of Care Code Acute Industrial Truck Mechanic for [facility] Diagnoses Hospital-acquired pneumonia J18.9; Y95 Respiratory failure J96.90 Time Spent (min) 37
[2019-08-17] VITALS (50 sets, daily range): BP systolic 74–111; BP diastolic 45–68; PULSE 89–110; RESP 16–32; TEMP 37.3–39.2; O2SAT 90–96
[2019-08-17] MEDS: linezolid premix 600 MG/300 ML PREMIX 300 MG IV ×2 (00:20→12:52)
[2019-08-17] MEDS: acetaminophen 325 mg Tablet 650 MG PO ×3 (02:40→20:07)
[2019-08-17] MEDS: propofol 1,000 MG/100 ML INJ 17.2 MG IV ×4 (03:23→21:39)
[2019-08-17] MEDS: ipratropium-albuterol 3 mL Neb INHALATION ×6 (03:49→23:48)
[2019-08-17 04:10] LABS: ABG PH Result 7.41 (7.35-7.45); Arterial Blood Gas Hematocrit 28.2 % (42-52); Base Excess ABG 0.6 mmol/L (-2.0-2.0); Blood Gas Sample Site Radial, right; Blood Gas Sample Type Arterial; Blood Gas Tidal Volume 0.4; HCO3 ABG 25.3 mmol/L (22-26); Oxygen Device VENT; PO2 ABG 60.5 mmHg (80.0-100.0)
[2019-08-17 04:45] LABS: Basophils % 0.1 %; Eosinophils # 0.1 10^3/uL (0.0-0.8); Eosinophils % 0.2 %; Hematocrit 31.8 % (42.0-52.0); Hemoglobin 9.7 g/dL (11.7-16.6); Lymphocytes # 1.1 10^3/uL (0.8-4.8); Mean Corpuscular HGB Conc 30.5 g/dL (30.0-36.0); Mean Corpuscular Hemoglobin 30.9 pg (28.0-34.0); Mean Corpuscular Volume 101.3 fL (80-94); Mean Platelet Volume 10.9 fL (7.4-10.4); Monocytes # 0.8 10^3/uL (0.2-0.9); Monocytes % 1.4 %; Neutrophils % 88.3 %; Nucleated Red Blood Cells % 0.1 %; Platelet Count 415 10^3/cmm (130-400); Red Blood Count 3.14 10^6/uL (4.1-5.3); Red Cell Distribution Width 14.8 % (12.1-15.1)
[2019-08-17 04:58] LABS: Anion Gap 13.7 (5-19); Blood Urea Nitrogen 33 mg/dL (8-23); Calcium 8.2 mg/dL (8.5-10.5); Carbon Dioxide 23 mmol/L (22-29); Chloride 109 mmol/L (98-107); Glucose 129 mg/dL (65-115); Osmolality Calculated 291 mOsm/kg (285-295); Potassium 4.7 mmol/L (3.5-5.1); Sodium 141 mmol/L (136-145)
[2019-08-17 05:31] LABS: White Blood Count 54.3 10^3/uL (4.0-10.0)
[2019-08-17 05:32] LABS: Slide Review Slide Review Perform
[2019-08-17] MEDS: levoFLOXacin 750 mg Tablet PO (06:07)
[2019-08-17] MEDS: FUROsemide 10 mg/mL SDV 4mL 40 MG IVP (06:07)
--- NOTE | 2019-08-17 07:19 | XR_ITS ---
WS: [id number] Portable AP upright chest, 08/17/2019 Clinical Data: resp failure Comparison: Portable chest, 08/16/2019 Findings: The dense opacity occupying much of the right lung has not changed significantly. There is minimal aerated lung superior to this opacity and inferior. The left lung shows development of a smal l opacity in the lingula obscuring the left cardiac border. Left upper lobe remains clear. The heart size is not enlarged. The right PICC line, endotracheal tube and nasogastric tube remain in good posi tion. Monitor leads are on the chest wall XR/XR chest 1V portable [id number] Impression: 1. Dense opacity in the right lung has not changed significantly and may repres ent diffuse pneumonia. 2. Development of small lingular opacity. 3. No change in position of endotracheal and nasogastric tubes.
[2019-08-17] MEDS: budesonide 0.5 mg/2 mL Neb INHALATION ×2 (08:06→20:17)
[2019-08-17] MEDS: pantoprazole 40 mg SDV IVP (09:28)
[2019-08-17] MEDS: tamsulosin 0.4 mg Capsule PO (09:29)
--- NOTE | 2019-08-17 10:25 | PC.RESP ---
Patient given Pulmonary Rehab and Smoking Cessation information.
--- NOTE | 2019-08-17 11:39 | P.PN_ITS ---
Subjective Subjective: Interval history: José worsened overnight as far as his FiO2 requirement. He is sedated on the ventilator currently. He continues to have bloody exudative drainage with suctioning Medications: Reviewed: Yes Vitals/I&O/Wt Last Vital Signs Temp 101.3 F H 08/17/19 08:00 Pulse 96 08/17/19 10:00 Resp 17 08/17/19 10:31 BP 98/57 08/17/19 10:00 Pulse Ox 94 08/17/19 10:00 08/16/19 08/17/19 08/17/19 22:59 06:59 14:59 Intake Total 880.732 / 2055.216 937.373 / 2992.589 228 / 228 Output Total 500 / 500 500 / 1000 Balance 380.732 / 1555.216 437.373 / 1992.589 228 / 228 Physical Exam Narrative: EXAM NARRATIVE: General exam is sedated on the ventilator Cardiovascular regular rate and rhythm Lungs diminished breath sounds bilaterally Abdomen is soft, positive bowel sounds Extremities no cyanosis clubbing. Lower extremities with 1+ edema Urinary Catheter Management^: Bean: Cath Placed During This Visit: yes Reason for Continuing Indwelling Catheter: Accurate Measurement of Urinary Output in Critically Ill Patients Urinary Catheter Date of Insertion: 08/12/19 Urinary Catheter Time of Insertion: 05:09 Data : 08/17/19 04:20 08/17/19 04:20 Other Labs: Chest x-ray shows worsening infiltrate right lung Micro: Microbiology 08/15/19 17:25 Bronchoalveolar Lavage Culture - Preliminary Lung - Right Middle 08/15/19 17:25 Gram Stain - Final Body Fluids - Bronchial 08/14/19 13:15 Gram Stain - Final Sputum - Endotracheal Tube Aspirate Sputum Culture - Final A&P Assessment and plan (1) ARDS (adult respiratory distress syndrome): Patient was reintubated August 13 , secondary to respiratory distress. Currently on linezolid, Primaxin, Levaquin, capsofungin Overall he continues to worsen with his recurrence of pneumonia. Bronchoscopy biopsies are pending Status: Acute Code(s): J80 - Acute respiratory distress syndrome (2) Diastolic CHF: Currently compensated Status: Acute Code(s): I50.30 - Unspecified diastolic (congestive) heart failure (3) Bilateral pneumonia: See notations under ARDS/respiratory failure Status: Acute Qualifiers: Lung location: lower lobe of lung Pneumonia type: due to unspecified organism Qualified Code(s): J18.9 - Pneumonia, unspecified organism Code(s): J18.9 - Pneumonia, unspecified organism (4) Sepsis: From for hypotension Status: Acute Qualifiers: Acute respiratory failure type: with hypoxia Sepsis acute organ dysfunction status: with acute organ dysfunction Sepsis type: sepsis due to unspecified organism Severe sepsis acute organ dysfunction type: acute respiratory failure Severe sepsis shock status: without septic shock Qualified Code(s): A41.9 - Sepsis, unspecified organism; R65.20 - Severe sepsis without septic shock; J96.01 - Acute respiratory failure with hypoxia Code(s): A41.9 - Sepsis, unspecified organism (5) COPD (chronic obstructive pulmonary disease): No current wheezing. Steroids have been discontinued. Status: Acute Code(s): J44.9 - Chronic obstructive pulmonary disease, unspecified (6) SVT (supraventricular tachycardia): Stopped secondary to hypotension Status: Acute Code(s): I47.1 - Supraventricular tachycardia (7) Acute urinary retention: Continue Bean Continue Flomax Will need outpatient follow-up with urology Status: Acute Code(s): R33.8 - Other retention of urine Additional A&P Information Transaminitis,. Hepatitis panel negative, gallbladder ultrasound with only mild hepatomegaly Leukocytosis. Worsening DVT prophylaxis SCDs. Lovenox discontinued secondary to hemoptysis Tube feeds stopped secondary to need for significant doses of norepinephrine Prognosis poor. Increasing FiO2 requirements in this patient with recurrent pneumonia now with hypotension and difficulty with source control likely secondary to necrotic lung. He is not a surgical candidate at this point in time. I discussed with his family his current situation and he will be no CPR. If he worsens significantly, they will consider comfort measures. Attestations Medical Necessity Statement*: Needs continued hospitalization, secondary to respiratory failure requiring mechanical ventilation Critical Care Time: 43 minutes spent in critical care reviewing x-rays, drips, exam, counseling with patient's family, etc. Coding Level of Care Code Acute [facility] for [facility] 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 SVT (supraventricular tachycardia) I47.1 Acute urinary retention R33.8
[2019-08-17] MEDS: sodium chloride 0.9% 250 ML IV (14:00)
--- NOTE | 2019-08-17 14:00 | PC.NURSE ---
Report given to MARIMAR Evans.
[2019-08-17] MEDS: sodium chloride 0.9% 1,000 ML 50 ML IV (23:24)
[2019-08-18] VITALS (14 sets, daily range): BP systolic 83–98; BP diastolic 50–58; PULSE 95–108; RESP 14–22; TEMP 36.4–39.4; O2SAT 87–93
[2019-08-18] MEDS: linezolid premix 600 MG/300 ML PREMIX 300 MG IV (00:04)
[2019-08-18] MEDS: acetaminophen 325 mg Tablet 650 MG PO (00:37)
--- NOTE | 2019-08-18 00:48 | PC.NURSE ---
Cool washclothes and PRN Tylenol provided to patient in attempt to bring down fever.
[2019-08-18] MEDS: ipratropium-albuterol 3 mL Neb INHALATION ×2 (03:09→07:59)
[2019-08-18] MEDS: propofol 1,000 MG/100 ML INJ 13.8 MG IV (03:59)
[2019-08-18 05:00] LABS: Alanine Aminotransferase 39 U/L (0-41); Albumin Level 1.1 g/dL (3.5-5.2); Alkaline Phosphatase 177 IU/L (40-130); Anion Gap 19.5 (5-19); Aspartate Amino Transferase 27 U/L (0-40); Blood Urea Nitrogen 44 mg/dL (8-23); Calcium 7.2 mg/dL (8.5-10.5); Carbon Dioxide 20 mmol/L (22-29); Chloride 105 mmol/L (98-107); Globulin 3.7 g/dL (1.3-4.6); Glomerular Filtration Rate 41.2 mL/min (90-130); Glucose 122 mg/dL (65-115); Osmolality Calculated 287 mOsm/kg (285-295); Potassium 5.5 mmol/L (3.5-5.1); Sodium 139 mmol/L (136-145); Total Bilirubin 0.5 mg/dL (0.15-1.2); Total Protein 4.8 g/dL (6.6-8.7)
[2019-08-18] MEDS: levoFLOXacin 750 mg Tablet PO (05:05)
[2019-08-18 05:44] LABS: Base Excess ABG -8.4 mmol/L (-2.0-2.0); Blood Gas Allen Test Pos; Blood Gas Sample Site Radial, left; Blood Gas Sample Type Arterial; Blood Gas Tidal Volume 0.4; HCO3 ABG 22.3 mmol/L (22-26); Oxygen Device VENT; PO2 ABG 80.7 mmHg (80.0-100.0)
[2019-08-18 05:49] LABS: ABG PCO2 78.6 mmHg (35-45); ABG PH Result 7.06 (7.35-7.45)
[2019-08-18 07:17] LABS: Basophils % 0.1 %; Eosinophils # 0.1 10^3/uL (0.0-0.8); Eosinophils % 0.2 %; Hematocrit 30.4 % (42.0-52.0); Hemoglobin 8.9 g/dL (11.7-16.6); Lymphocytes # 1.7 10^3/uL (0.8-4.8); Lymphocytes % 2.7 %; Mean Corpuscular HGB Conc 29.3 g/dL (30.0-36.0); Mean Corpuscular Hemoglobin 30.6 pg (28.0-34.0); Mean Corpuscular Volume 104.5 fL (80-94); Mean Platelet Volume 10.7 fL (7.4-10.4); Monocytes # 0.7 10^3/uL (0.2-0.9); Monocytes % 1.1 %; Neutrophils # 55.6 10^3/uL (1.8-7.7); Neutrophils % 87.2 %; Nucleated Red Blood Cells # 0.1 /100WBC; Nucleated Red Blood Cells % 0.1 %; Platelet Count 366 10^3/cmm (130-400); Positive C 1; Positive M 1; Red Blood Count 2.91 10^6/uL (4.1-5.3); Red Cell Distribution Width 15.2 % (12.1-15.1)
[2019-08-18 07:24] LABS: Slide Review Slide Review Perform; White Blood Count 63.7 10^3/uL (4.0-10.0)
--- NOTE | 2019-08-18 07:48 | XR_ITS ---
WS: [id number] Portable AP supine chest, 08/18/2019 Clinical Data: resp failure Comparison: Portable chest, 08/17/2019 Findings: The endotracheal tube, nasogastric tube and right PICC line remain in the same position. Th ere is an increase in the left lung opacity which could represent worsening pneumonia. The dense opac ity in the midportion of the right lung remains the same. There is only aerated lung at the right bas e. Monitor leads are on the chest wall. XR/XR chest 1V portable [id number] Impression: 1. Increase in opacity in the midportion of the left lung which may represent w orsening pneumonia. 2. No change in multiple tubes. 3. No change in large dense right lung opacity.
--- NOTE | 2019-08-18 07:57 | NUR.SHIFT ---
PT REPOSITIONED IN BED AFTER REPORT. REMAINS INTUBATED/SEDATED. BLOODY SPUTUM NOTED TO ET SUCTION TUBING. FLORES WITH <30ML OF DARK MARINE URINE. BUE EDEMATOUS AFEBRILE.
[2019-08-18] MEDS: budesonide 0.5 mg/2 mL Neb INHALATION (07:59)
--- NOTE | 2019-08-18 08:44 | PM.PN ---
Subjective Subjective: Interval history: Patient is sedated on the ventilator. I discussed with the nurse the course through last night. Medications: Reviewed: Yes Vitals/I&O/Wt Last Vital Signs Temp 97.5 F L 08/18/19 07:00 Pulse 108 H 08/18/19 08:41 Resp 22 H 08/18/19 08:07 BP 97/58 08/18/19 07:00 Pulse Ox 89 L 08/18/19 08:41 08/17/19 08/18/19 08/18/19 22:59 06:59 14:59 Intake Total 1154.207 / 2865.207 1702.530 / 4567.737 Output Total 550 / 1550 Balance 1154.207 / 8479.364 9154.530 / 3017.737 Physical Exam Narrative: EXAM NARRATIVE: General exam is sedated on the ventilator Cardiovascular regular rate and rhythm Lungs diminished breath sounds bilaterally, more markedly on the right Abdomen is soft, positive bowel sounds Extremities no cyanosis clubbing. Lower extremities with 1+ edema Urinary Catheter Management^: Bean: Cath Placed During This Visit: yes Reason for Continuing Indwelling Catheter: Accurate Measurement of Urinary Output in Critically Ill Patients Urinary Catheter Date of Insertion: 08/12/19 Urinary Catheter Time of Insertion: 05:09 Data : 08/18/19 04:05 08/18/19 04:05 Micro: Microbiology 08/15/19 17:25 Bronchoalveolar Lavage Culture - Preliminary Lung - Right Middle A&P Assessment and plan (1) ARDS (adult respiratory distress syndrome): Patient was reintubated August 13 , secondary to respiratory distress. Currently on linezolid, Primaxin, Levaquin, capsofungin His respiratory status, and pneumonia continue to worsen with maximum FiO2 setting of 100% saturation is 86%. He now has renal failure, acidosis, hypotension requiring a significant amount of norepinephrine Bronchoscopy biopsies are pending I have discussed with his son his worsening course, and extremely poor prognosis. I have discussed this with pulmonary as well who is in agreement, that comfort measures are indicated currently. Son confirms that they have been thinking about this, and have agreement on going forward to comfort measures. Prior to extubating the patient, we will be making arrangements for family to visit. Comfort medications of morphine, Ativan, atropine will be ordered. Status: Acute Code(s): J80 - Acute respiratory distress syndrome (2) Diastolic CHF: Increasing edema as patient progresses to renal failure as well Status: Acute Code(s): I50.30 - Unspecified diastolic (congestive) heart failure (3) Bilateral pneumonia: See notations under ARDS/respiratory failure Status: Acute Qualifiers: Lung location: lower lobe of lung Pneumonia type: due to unspecified organism Qualified Code(s): J18.9 - Pneumonia, unspecified organism Code(s): J18.9 - Pneumonia, unspecified organism (4) Sepsis: Hypotension worsens. He is currently on 18 of norepinephrine Status: Acute Qualifiers: Acute respiratory failure type: with hypoxia Sepsis acute organ dysfunction status: with acute organ dysfunction Sepsis type: sepsis due to unspecified organism Severe sepsis acute organ dysfunction type: acute respiratory failure Severe sepsis shock status: without septic shock Qualified Code(s): A41.9 - Sepsis, unspecified organism; R65.20 - Severe sepsis without septic shock; J96.01 - Acute respiratory failure with hypoxia Code(s): A41.9 - Sepsis, unspecified organism (5) COPD (chronic obstructive pulmonary disease): No current wheezing. Status: Acute Code(s): J44.9 - Chronic obstructive pulmonary disease, unspecified (6) SVT (supraventricular tachycardia): Stopped secondary to hypotension Status: Acute Code(s): I47.1 - Supraventricular tachycardia (7) Acute urinary retention: Continue Bean Status: Acute Code(s): R33.8 - Other retention of urine Additional A&P Information Transaminitis,. Hepatitis panel negative, gallbladder ultrasound with only mild hepatomegaly Leukocytosis. Continues to worsen. I suspect he has necrotic lung right chest, posing significant source control issues. Acute renal failure Hypotension DVT prophylaxis SCDs. Lovenox discontinued secondary to hemoptysis Tube feeds stopped secondary to need for significant doses of norepinephrine Prognosis is poor. As noted above patient family agrees with proceeding to comfort measures. His condition is tenuous enough that no surgery could be tolerated and lead only to more complications. Attestations Medical Necessity Statement*: Needs continued hospitalization secondary to respiratory failure requiring mechanical ventilation, and this patient progressing to comfort measures Critical Care Time: 31 minutes of critical care time spent in this patient with multiorgan failure on high-dose pressors, maximum mechanical ventilation settings, and reviewing medicines, physical exam, counseling with family. Coding Level of Care Code Acute Technician Preventative Medicine for [facility] 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 SVT (supraventricular tachycardia) I47.1 Acute urinary retention R33.8
[2019-08-18] MEDS: morphine 4 mg/mL SDV 1 mL IVP ×2 (09:31→10:33)
[2019-08-18] MEDS: LORazepam 2 mg/mL INJ 1 mL IVP (09:31)
--- NOTE | 2019-08-18 11:06 | P.DES_ITS ---
Discharge Providers DDS Date of Admission: 07/24/19 21:18 Date Summary Completed: 08/18/19 Attending Provider at Admission: Gabi Long MD Time of : 10:55 Attending Provider at Discharge: Kevin Florian MD DS Diagnoses Hospital Diagnoses (1) ARDS (adult respiratory distress syndrome): (2) Diastolic CHF: (3) Bilateral pneumonia: Qualifiers: Lung location: lower lobe of lung Pneumonia type: due to unspecified organism Qualified Code(s): J18.9 - Pneumonia, unspecified organism (4) Sepsis: Qualifiers: Acute respiratory failure type: with hypoxia Sepsis acute organ dysfunction status: with acute organ dysfunction Sepsis type: sepsis due to unspecified organism Severe sepsis acute organ dysfunction type: acute respiratory failure Severe sepsis shock status: without septic shock Qualified Code(s): A41.9 - Sepsis, unspecified organism; R65.20 - Severe sepsis without septic shock; J96.01 - Acute respiratory failure with hypoxia (5) COPD (chronic obstructive pulmonary disease): (6) SVT (supraventricular tachycardia): (7) Acute urinary retention: Reason for Visit 2 Reason for Visit: Reason For Visit: sob/flu symptoms Summary Date and Time of : Date of : 08/18/19 Time of : 10:55 Summary: Summary: José is a 59-year-old white male who presented to the hospital on July 23 with shortness of breath, and cough. He had failed outpatient treatment with doxycycline. Upon admission he was diagnosed with bilateral pneumonia, sepsis. He was initially put on Rocephin and azithromycin but this was quickly changed to vancomycin and Zosyn. He required BiPAP. Steroids were given for COPD exacerbation. He was hydrated secondary to acute kidney injury. Pulmonary was consulted, and antibiotics were changed to Zosyn, linezolid, and azithromycin. IV steroids were continued. He was switched to high flow nasal cannula and he appeared to make some slow improvement. Renal function improved, and he was slowly diuresed following this. From July 30 through August 03 he continued to make some improvement with ability to wean his high flow oxygen. However on August 04 fever was noted and FiO2 increased. At that point fluconazole was added, broad-spectrum antibiotics were restarted as he had recently completed a course, and there was concern for recurrent pneumonia right lung. Patient worsened, and on August 14 he required intubation and ventilation. Pulmonary, was again on board and performed a bronchoscopy demonstrating pus from the right lung. Cultures were obtained. The patient continued to worsen and bronchoscopy was performed again, and biopsy occurred at this time. In the ensuing days, patient continued to worsen requiring maximum ventilator support on 100% FiO2 with an oxygen level of 86%, addition of pressors, renal failure, difficulty with ventilation. I had discussions with the family, as well as pulmonary regarding his worsening, development of multiorgan failure, and it was determined that prognosis was dismal. Family made him comfort measures on August 17 and he was extubated, made comfortable. Family was able to be present with him when he . 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 Additional Data: Advance directives?: No Discharge Plan Discharge Patient Disposition: Condition: DS Attestations Time Spent in /Discharge Care*: greater than 30 min Quality - AMI: AMI present?: No Quality - Stroke: CVA present?: No Symptom Onset Unknown: No Quality - VTE: VTE present?: No Deep Vein Thrombosis/Pulmonary Embolism Present on Admission: No Coding Level of Care Code Acute Dining Room Attendant for [facility] 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 SVT (supraventricular tachycardia) I47.1 Acute urinary retention R33.8
--- NOTE | 2019-08-18 11:31 | PC.NURSE ---
Addendum entered by Sarah Petit RN 08/18/19 11:52: PT IS NOT A [facility] CANDIDATE. WAITING ON [employer] TO NOTIFY US ON ELIGIBILITY. Original Note: [facility] NOTIFIED OF . RELEASE PENDING, THEY WILL CALL BACK WITH RELEASE INFO DONAL GONZALEZ IS CONTACT.
--- NOTE | 2019-08-18 11:53 | PC.NURSE ---
TERMINAL EXTUBATION @ 1033. FAMILY AT BEDSIDE. ALL DRIPS/IVF STOPPED. MEDICATED WITH MORPHINE & ATIVAN PRN. TIME OF 1055. DR GEE NOTIFIED.
--- NOTE | 2019-08-18 13:02 | PC.NURSE ---
[facility] HERE TO TRANSPORT BODY. FAMILY AWARE.
--- NOTE | 2019-08-18 13:07 | PC.NURSE ---
FENTANYL DRIP WASTED 60ML. WITNESSED BY DENIS ANDERSON RN.
== END 2019-08-18 10:55 | disposition expired | DRG 870 ==
LOC: ER 20:47 → MEDSURG 21:36 → ICU 07-26 09:29 → MEDSURG 08-01 18:20 → ICU 08-14 09:34
PROVIDERS: Family Medicine; Internal Medicine Critical Care Medicine; Physician Assistant; Student in an Organized Health Care Education/Training Program; Admitting Provider Internal Medicine; Emergency Provider Family Medicine; Visit Provider Internal Medicine
PROC: 0BJ08ZZ Inspection of Tracheobronchial Tree, Via Natural or Artificial Opening Endoscopic (ICD-10-PCS; CPT 31622; principal; 2019-08-16 15:30)
DX: A41.9 Sepsis, unspecified organism (principal); J18.9 Pneumonia, unspecified organism; J96.01 Acute respiratory failure with hypoxia; I50.30 Unspecified diastolic (congestive) heart failure; I47.1 Supraventricular tachycardia; J44.1 Chronic obstructive pulmonary disease with (acute) exacerbation; N17.9 Acute kidney failure, unspecified; B44.9 Aspergillosis, unspecified; E46 Unspecified protein-calorie malnutrition; R65.20 Severe sepsis without septic shock; R33.8 Other retention of urine; F17.210 Nicotine dependence, cigarettes, uncomplicated; E86.0 Dehydration; J09.X2 Influenza due to identified novel influenza A virus with other respiratory manifestations; R50.2 Drug induced fever; B96.89 Other specified bacterial agents as the cause of diseases classified elsewhere; I95.9 Hypotension, unspecified; Y95 Nosocomial condition; Z99.81 Dependence on supplemental oxygen; Z68.20 Body mass index [BMI] 20.0-20.9, adult
CPT/HCPCS: 12345; 31624; 31625; 36415; 36416; 36569; 36592; 36600; 51702; 51798; 71045; 71275; 76536; 76705; 80048; 80051; 80053; 80074; 80202; 81001; 82550; 82803; 82810; 82962; 83036; 83605; 83735; 83880; 83986; 84100; 84145; 85007; 85025; 85730; 86140; 86403; 87015; 87040; 87070; 87081; 87086; 87102; 87106; 87107; 87116; 87205; 87206; 87449; 87486; 87493; 87581; 87633; 87641; 87801; 87804; 87806; 88112; 88305; 93005; 93306; 93970; 94002; 94003; 94640; 94660; 94762; 94799; 96372; 96375; 97110; 97162; 97530; 99283; C9113; J0171; J0330; J0456; J0637; J0692; J0696; J0743; J1450; J1630; J1644; J1650; J1940; J2001; J2020; J2060; J2250; J2270; J2405; J2543; J2704; J2920; J2930; J3010; J3370; J3480; J3490; J7030; J7050; J7512; J7626; Q0144; Q9967; S0030